=== PATIENT | female | born 1960 | race Caucasian/White ===

== ENCOUNTER → 2019-04-16 15:01 | Outpatient (BNVA) | payer BC, SELFPAY | PROVIDERS: Family Provider Internal Medicine; PCP Internal Medicine; Visit Provider Anesthesiology | DX: G89.18 Other acute postprocedural pain (principal); M79.601 Pain in right arm; M54.9 Dorsalgia, unspecified; N64.4 Mastodynia; F17.210 Nicotine dependence, cigarettes, uncomplicated; Z79.891 Long term (current) use of opiate analgesic | CPT/HCPCS: 99214 ==

== ENCOUNTER → 2019-05-14 14:11 | Outpatient (BNVA) | payer BC, SELFPAY | PROVIDERS: Family Provider Internal Medicine; PCP Internal Medicine; Visit Provider Anesthesiology | DX: G89.18 Other acute postprocedural pain (principal); M79.601 Pain in right arm; C80.1 Malignant (primary) neoplasm, unspecified; G63 Polyneuropathy in diseases classified elsewhere; F17.210 Nicotine dependence, cigarettes, uncomplicated; Z79.891 Long term (current) use of opiate analgesic | CPT/HCPCS: 99213 ==

== ENCOUNTER → 2019-07-08 12:37 | Outpatient (BNVA) | payer BC, SELFPAY | PROVIDERS: Family Provider Internal Medicine; PCP Internal Medicine; Visit Provider Nurse Practitioner | DX: Z76.89 Persons encountering health services in other specified circumstances (principal) | CPT/HCPCS: 99212 ==

== ENCOUNTER → 2019-09-10 14:27 | Outpatient (BNVA) | payer BC, SELFPAY | PROVIDERS: Family Provider Internal Medicine; PCP Internal Medicine; Visit Provider Anesthesiology | DX: G89.18 Other acute postprocedural pain (principal); M79.601 Pain in right arm; R29.898 Other symptoms and signs involving the musculoskeletal system; C80.1 Malignant (primary) neoplasm, unspecified; G63 Polyneuropathy in diseases classified elsewhere; Z92.21 Personal history of antineoplastic chemotherapy; F17.210 Nicotine dependence, cigarettes, uncomplicated; Z79.891 Long term (current) use of opiate analgesic; Z71.6 Tobacco abuse counseling | CPT/HCPCS: 99214 ==

== ENCOUNTER → 2019-11-23 13:57 | Outpatient (BNVA) | payer BC, SELFPAY | PROVIDERS: Family Provider Internal Medicine; PCP Internal Medicine; Visit Provider Anesthesiology | DX: G89.18 Other acute postprocedural pain (principal); M79.601 Pain in right arm; C80.1 Malignant (primary) neoplasm, unspecified; G63 Polyneuropathy in diseases classified elsewhere; R29.898 Other symptoms and signs involving the musculoskeletal system; F17.210 Nicotine dependence, cigarettes, uncomplicated; Z92.21 Personal history of antineoplastic chemotherapy; Z79.891 Long term (current) use of opiate analgesic; Z71.6 Tobacco abuse counseling | CPT/HCPCS: 99214 ==

== ENCOUNTER 2019-12-03 15:11 | Outpatient (CLI) | payer BC, SELFPAY ==
--- NOTE | 2019-12-03 15:16 | MM_ITS ---
WS: [id number] LEFT DIGITAL MAMMOGRAPHY WITH CAD CLINICAL INFORMATION: HX OF BREAST CA PALPABLE LUMP LEFT BREAST COMPARISON: 8 20,019 and 3 ,018 TECHNIQUE: 5 views of the left breast were obtained. FINDINGS: Right mastectomy. Prior left areola relocation surgery The left breast is composed of extremely dense tissue, which can limit the detection of small underly ing mass lesions. Postoperative changes left areola. Palpable marker inferior outer quadrant left breast. A few punctat e calcifications. Vascular calcification. No underlying mammographic abnormalities. Ultrasound recomm ended for palpable abnormality. MM/[place] [id number] IMPRESSION: BI-RADS: 0-Incomplete: Need additional imaging evaluation FOLLOW UP: Need Additional Imaging
== END 2019-12-03 15:12 | disposition home or self-care (01) ==
LOC: ONCMED 15:15
PROVIDERS: PCP Internal Medicine; Visit Provider Internal Medicine Medical Oncology
DX: Z85.3 Personal history of malignant neoplasm of breast (principal); Z90.11 Acquired absence of right breast and nipple; Z98.890 Other specified postprocedural states
CPT/HCPCS: 77065

== ENCOUNTER 2019-12-10 14:52 | Outpatient (CLI) | payer BC, SELFPAY ==
--- NOTE | 2019-12-10 15:00 | US_ITS ---
WS: [id number] ULTRASOUND BREAST LEFT TECHNIQUE: Ultrasound left breast focused area of concern. CLINICAL INFORMATION: PALPALE AREA FOLLOW UP ABNORMAL IMAGING COMPARISON: November 25, 2019 FINDINGS: History of right mastectomy prior left areola relocation. Postoperative changes left areola. Ultrasou nd performed for palpable abnormality. Ultrasound left breast at the 3:00 and 7:00 position and at the nipple. Dense underlying parenchymal tissue. No cystic or solid lesions. No lesions to target for biopsy. US/US breast LT limited* [id number] IMPRESSION: BI-RADS 2 benign Recommend return to annual diagnostic mammography.
== END 2019-12-10 14:53 | disposition home or self-care (01) ==
LOC: ONCMED 14:55
PROVIDERS: PCP Internal Medicine; Visit Provider Internal Medicine Medical Oncology
DX: Z85.3 Personal history of malignant neoplasm of breast (principal)
CPT/HCPCS: 76642

== ENCOUNTER 2019-12-21 06:06 | Outpatient (CLI) | payer BC, SELFPAY ==
--- NOTE | 2019-12-25 09:51 | ONC FU_ITS ---
Dr. Boykin Patient Follow-Up Note Patient: Zhane Denise Unit #: [id number]: 1960 Dicatated By: Gianluca Boykin M.D.Date of Visit:Dec 21, 2019 Onc Med Follow-up/Prog Note Chief Complaint: Breast cancer. History of Present Illness: This is a 57 year-old woman with invasive ductal carcinoma of the right breast, stage IA (T1b, N0, M0), ER/NJ negative and HER-2/luz maria positive. She had presented in 1995 with a lump in her right breast. Excisional biopsy showed grade 2 invasive ductal carcinoma with associated comedo type ductal carcinoma in situ. It measured 1.0 cm in maximum diameter. It was ER/NJ negative and HER-2/luz maria positive. She underwent right modified radical mastectomy on 05/30/95. There was no residual carcinoma identified in the mastectomy specimen and there was no involvement in 22 lymph nodes.. She was given adjuvant chemotherapy with 4 cycles of Adriamycin/cyclophosphamide, which she completed in September of 1995. She then underwent delayed breast reconstruction. 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 Her medical history is otherwise significant for intermittent tachycardia and for recurrent episodes of abdominal pain and vomiting following a laparoscopic cholecystectomy in July 2009. Those episodes were clinically suspicious for partial bowel obstruction, but an actual obstruction was never been documented. She also has had some chronic lower extremity edema and she has chronic anxiety. She is seen for a followup visit. She has been concerned about a lump in her left breast which she first noted about 4 weeks ago. She had evaluation with diagnostic mammogram and ultrasound on 12/03/2019. The mammogram reported a few punctate calcifications with no underlying mammographic abnormalities. The ultrasound showed dense underlying parenchymal tissue with no cystic or solid lesions and no lesions to target for biopsy. She was recommended to return to annual diagnostic mammography. Despite those findings, she is very concerned about the lump, because her original breast cancer apparently did not show up on mammogram. She has otherwise been feeling okay, other than she is stressed out. She had experienced a decrease in her appetite last fall and her weight dropped 20 to 25 pounds, but she does seem to be getting that back now. Medications: ALPRAZolam 1 (0.25 mg) Tablet Oral at bedtime PRN, AmLODIPine Besylate 1 (5 mg) Tablet Oral daily, Metoprolol Tartrate 1 (50 mg) Tablet Oral daily, Morphine Sulfate 1 (30 mg) Tablet Oral b.i.d. PRN, OxyCODONE HCl ER 1 Tablet (of 60 mg) Oral q 8 hours PRN, traZODone HCl 1 Tablet (of 50 mg) Oral at bedtime Allergies: PCN, KEFLEX, VANCOMYCIN Review of Systems: Constitutional - She says her energy is not great. She is able to do light work. She had a decline in her appetite last fall and her weight dropped 20 to 25 pounds. She is now gaining it back, though. She has not had fever. She does have hot flashes and night sweating. ECOG score is 1, ENMT - No sinus congestion/drainage. No mouth sores. No sore throat or difficulty swallowing, Hematologic/Lymphatic - No abnormal bruising or bleeding, Breasts - She became aware of a lump in her left breast about 4 weeks ago, Respiratory - No shortness of breath. No cough. No pleuritic pain or hemoptysis, Cardiovascular - No angina pain. No palpitations, Gastrointestinal - Lately she has had some nausea, but that she attributes to nerves. No heartburn or acid reflux. She occasionally has constipation. No blood in the stool or black stools, Genitourinary (F) - No dysuria or hematuria. No urinary frequency. No urgency or incontinence. She says she has had a lot of yeast infections, Musculoskeletal - She has pain in the right axillary area, which is chronic. She occasionally has pain in the upper back between the shoulder blades, Integumentary - No skin rash, Neurologic - No headache or dizziness. She has some numbness in her right hand. No other focal neurologic symptoms, Psychiatric - She has been under a lot of stress. She has been taking trazodone and alprazolam for insomnia. Vital Signs: Performed on Dec 21, 2019 08:21 Height - 65.00 in Weight - 151.6 lbs (LOW) BSA - 1.76 sq.m BMI - 25.23 Temperature - 98.9 F (HIGH) Pulse - 103 /min (HIGH) Respiration - 18 /min BP - 149/80 mm(hg) (HIGH) O2 Sat - 98 % Pain - 6 Physical Examination: Constitutional - She looks pretty good generally, Eyes - Sclerae nonicteric. Conjunctivae clear, ENMT - No lesions noted in the oral cavity, Hematologic/Lymphatic - No cervical or clavicular adenopathy, Respiratory - Lungs are clear with good air movement bilaterally, Cardiovascular - Heart rhythm is regular. There is no murmur, gallop, or rub noted, Breasts - There are no lesions noted in the right chest wall/reconstruction. The left breast has a generally nodular consistency. Laterally there is a palpable, soft nodule which just feels like normal breast tissue. I do not feel any discrete mass. There is no axillary adenopathy noted, Abdomen - Soft. Liver and spleen are not enlarged. There is no abdominal mass or ascites noted and there is no inguinal adenopathy, Extremities - No edema. Pedal pulses are palpable bilaterally, Integumentary - No rashes. No suspicious skin lesions noted, Neurologic - No focal neurologic deficits noted. Impression: 1. Patient with invasive ductal carcinoma the right breast, stage IA, ER/NJ negative and HER-2/luz maria positive. 2. Her treatment included right modified radical mastectomy and adjuvant chemotherapy with 4 cycles of Adriamycin/cyclophosphamide. 3. She has chronic pain, presumed to be due to brachial plexopathy following delayed breast reconstruction. It has been severe enough to affect her ability to function. Efforts to change or reduce her opiate medication have been unsuccessful. Her other medical illnesses include: 4. She has had Intermittent episodes of tachycardia. 5. She has had intermittent episodes of vomiting following laparoscopic cholecystectomy in July 2009. 6. She has anxiety/depression. It has been managed very well with alprazolam. She presents now with a lump in her left breast. There is no associated abnormality noted on diagnostic mammogram or ultrasound. To me this feels like an area of normal breast tissue, but she is still very concerned about it, as her original breast cancer apparently did not show up on imaging. She is otherwise been stable clinically with no evidence of recurrence of the breast cancer. Plan: She remains on observation/expectant management for the breast cancer, but I will schedule a follow-up visit with repeat ultrasound in 3 months, as she is extremely anxious about it. Signed By: Gianluca Boykin M.D. <<Signature on File>>
== END 2019-12-21 06:07 | disposition home or self-care (01) ==
LOC: ONCMED 06:07
PROVIDERS: PCP Internal Medicine; Visit Provider Internal Medicine Medical Oncology
DX: Z08 Encounter for follow-up examination after completed treatment for malignant neoplasm (principal); Z85.3 Personal history of malignant neoplasm of breast; N63.20 Unspecified lump in the left breast, unspecified quadrant; Z90.11 Acquired absence of right breast and nipple
CPT/HCPCS: G0463

== ENCOUNTER → 2020-01-16 18:50 | Outpatient (BNVA) | payer BC, SELFPAY | PROVIDERS: PCP Internal Medicine; Visit Provider Emergency Medicine | DX: Z11.59 Encounter for screening for other viral diseases (principal) | CPT/HCPCS: 87635 ==

== ENCOUNTER → 2020-01-25 12:46 | Outpatient (BNVA) | payer BC, SELFPAY | PROVIDERS: Family Provider Internal Medicine; PCP Internal Medicine; Visit Provider Anesthesiology | DX: G89.18 Other acute postprocedural pain (principal); M79.601 Pain in right arm; R29.898 Other symptoms and signs involving the musculoskeletal system; C80.1 Malignant (primary) neoplasm, unspecified; Z92.21 Personal history of antineoplastic chemotherapy; G63 Polyneuropathy in diseases classified elsewhere; F17.210 Nicotine dependence, cigarettes, uncomplicated; Z79.891 Long term (current) use of opiate analgesic; Z71.6 Tobacco abuse counseling | CPT/HCPCS: 99214 ==

== ENCOUNTER 2020-02-22 13:10 | Outpatient (CLI) | payer BC, SELFPAY ==
--- NOTE | 2020-02-22 13:14 | US_ITS ---
WS: [id number] ULTRASOUND LEFT BREAST HISTORY: LT PALPABLE MASS LATERAL LEFT BREAST;HX BREAST CA COMPARISON: 12/10/2019, 09/06/2011 and 12/03/2019 TECHNIQUE: 2-D and Doppler. Ultrasound is directed to the LEFT breast at 12:00, 4:00, 3:00, 6:00 and 8:00. There are no suspiciou s masses or shadowing or increased vascularity. There is a scar at 6:00 at the areola . US/US breast LT limited* [id number] IMPRESSION: BI-RADS: 2-Benign FOLLOW-UP: See Report Recommend patient return to annual screening mammography which would be November 2020. If palpable areas change or become more prominent additional imaging can be obtained at that time. At this time the postoperative scars and soft tissue appears stable.
== END 2020-02-22 13:11 | disposition home or self-care (01) ==
LOC: ONCMED 13:12
PROVIDERS: PCP Internal Medicine; Visit Provider Internal Medicine Medical Oncology
DX: N63.20 Unspecified lump in the left breast, unspecified quadrant (principal); Z85.3 Personal history of malignant neoplasm of breast
CPT/HCPCS: 76642

== ENCOUNTER 2020-03-17 13:24 | Outpatient (CLI) | payer BC, SELFPAY ==
--- NOTE | 2020-03-17 13:31 | US_ITS ---
WS: [id number] ULTRASOUND LEFT BREAST HISTORY: PALPABLE MASS LEFT BREAST, history of prior RIGHT breast mastectomy. COMPARISON: 02/22/2020, 12/10/2019. TECHNIQUE: 2-D and Doppler. Patient indicates the palpable abnormality posterior at the 4:00 location. There is normal soft tissu e ultrasound appearance. No solid or cystic masses. No distortion. [place] complete [id number] IMPRESSION: BI-RADS: 2-Benign FOLLOW-UP: 1 Year Follow-up LACK OF RADIOGRAPHIC EVIDENCE OF MALIGNANCY SHOULD NOT DELAY BIOPSY IF A CLINIC ALLY SUSPICIOUS MASS IS PRESENT.
== END 2020-03-17 13:25 | disposition home or self-care (01) ==
LOC: RAD 13:30
PROVIDERS: PCP Internal Medicine; Visit Provider Internal Medicine Medical Oncology
DX: N63.20 Unspecified lump in the left breast, unspecified quadrant (principal); Z85.3 Personal history of malignant neoplasm of breast
CPT/HCPCS: 76641

== ENCOUNTER 2020-03-20 13:02 | Outpatient (CLI) | payer BC, SELFPAY ==
--- NOTE | 2020-03-20 13:39 | ONC FU_ITS ---
Dr. Boykin Patient Follow-Up Note Patient: Zhane Denise Unit #: [id number]: 1960 Dicatated By: Gianluca Boykin M.D.Date of Visit:Mar 20, 2020 Onc Med Follow-up/Prog Note Chief Complaint: Breast cancer. History of Present Illness: This is a 57 year-old woman with invasive ductal carcinoma of the right breast, stage IA (T1b, N0, M0), ER/OK negative and HER-2/luz maria positive. She had presented in 1995 with a lump in her right breast. Excisional biopsy showed grade 2 invasive ductal carcinoma with associated comedo type ductal carcinoma in situ. It measured 1.0 cm in maximum diameter. It was ER/OK negative and HER-2/luz maria positive. She underwent right modified radical mastectomy on 05/30/95. There was no residual carcinoma identified in the mastectomy specimen and there was no involvement in 22 lymph nodes.. She was given adjuvant chemotherapy with 4 cycles of Adriamycin/cyclophosphamide, which she completed in September of 1995. She then underwent delayed breast reconstruction. 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 Her medical history is otherwise significant for intermittent tachycardia and for recurrent episodes of abdominal pain and vomiting following a laparoscopic cholecystectomy in July 2009. Those episodes were clinically suspicious for partial bowel obstruction, but an actual obstruction was never been documented. She also has had some chronic lower extremity edema and she has chronic anxiety. I had seen her for a follow-up visit in December 2019. At that time she was concerned about a lump in her left breast. On exam I was able to delineate a nodule , but at the time it just felt like normal breast tissue. There was no associated abnormality on mammogram or ultrasound at that time. She comes in now for a follow-up visit. She thinks it has gotten larger. Medications: ALPRAZolam 1 (0.25 mg) Tablet Oral at bedtime PRN, AmLODIPine Besylate 1 (5 mg) Tablet Oral daily, Metoprolol Tartrate 1 (50 mg) Tablet Oral daily, Morphine Sulfate 1 (30 mg) Tablet Oral b.i.d. PRN, OxyCODONE HCl ER 1 Tablet (of 60 mg) Oral q 8 hours PRN, traZODone HCl 1 Tablet (of 50 mg) Oral at bedtime Allergies: PCN, KEFLEX, VANCOMYCIN Vital Signs: Performed on Mar 20, 2020 13:15 Height - 65.00 in Weight - 151.2 lbs (LOW) BSA - 1.76 sq.m BMI - 25.16 Temperature - 98.2 F (LOW) Pulse - 61 /min Respiration - 18 /min BP - 121/70 mm(hg) O2 Sat - 98 % Pain - 0 Physical Examination: Constitutional - She looks good generally, Breasts - In the lateral aspect of the left breast there is a palpable nodule which does feel larger and a little more firm compared to the last visit with her, which was in December. It appears to measure about a centimeter now. There is no axillary adenopathy noted. Impression: 1. Patient with invasive ductal carcinoma the right breast, stage IA, ER/OK negative and HER-2/luz maria positive. 2. Her treatment included right modified radical mastectomy and adjuvant chemotherapy with 4 cycles of Adriamycin/cyclophosphamide. 3. She has chronic pain, presumed to be due to brachial plexopathy following delayed breast reconstruction. It has been severe enough to affect her ability to function. Efforts to change or reduce her opiate medication have been unsuccessful. Her other medical illnesses include: 4. She has had Intermittent episodes of tachycardia. 5. She has had intermittent episodes of vomiting following laparoscopic cholecystectomy in July 2009. 6. She has anxiety/depression. It has been managed very well with alprazolam. She presented in December with a lump in her left breast. There was no associated abnormality noted on diagnostic mammogram or ultrasound. On exam at that time I was able to delineate somewhat of a discrete nodule in the lateral aspect of the left breast, but it felt like normal breast tissue. She is concerned because she feels that that lump has been getting larger. On her current exam, the nodule does appear to have increased in size and also feels a little more firm, but repeat ultrasound still shows no abnormality. Plan: As it does appear it has shown some interval change, I am going to arrange for surgical consultation for consideration of excisional biopsy. Signed By: Gianluca Boykin M.D. <<Signature on File>>
== END 2020-03-20 13:03 | disposition home or self-care (01) ==
LOC: ONCMED 13:03
PROVIDERS: PCP Internal Medicine; Visit Provider Internal Medicine Medical Oncology
DX: N63.20 Unspecified lump in the left breast, unspecified quadrant (principal); Z85.3 Personal history of malignant neoplasm of breast; G89.29 Other chronic pain; R07.89 Other chest pain; F41.8 Other specified anxiety disorders; R00.0 Tachycardia, unspecified; Z90.11 Acquired absence of right breast and nipple; Z92.21 Personal history of antineoplastic chemotherapy; Z79.891 Long term (current) use of opiate analgesic
CPT/HCPCS: G0463

== ENCOUNTER → 2020-03-21 16:24 | Outpatient (BNVA) | payer BC, SELFPAY | PROVIDERS: PCP Internal Medicine; Visit Provider Surgery | DX: N63.0 Unspecified lump in unspecified breast (principal) | CPT/HCPCS: 87635 ==

== ENCOUNTER → 2020-03-23 10:41 | Outpatient (BNVA) | payer BC, SELFPAY | PROVIDERS: PCP Internal Medicine; Visit Provider Nurse Practitioner | DX: G89.18 Other acute postprocedural pain (principal); M79.601 Pain in right arm; R29.898 Other symptoms and signs involving the musculoskeletal system; F17.210 Nicotine dependence, cigarettes, uncomplicated; Z79.891 Long term (current) use of opiate analgesic | CPT/HCPCS: 99215 ==

== ENCOUNTER 2020-03-28 09:58 | Day surgery (SDC) | payer BC, SELFPAY ==
[2020-03-27 17:03] VITALS: BMI 23.6
[2020-03-27 17:31] VITALS: BMI 23.6
[2020-03-28] VITALS (7 sets, daily range): BP systolic 121–139; BP diastolic 64–93; PULSE 73–83; RESP 17–18; TEMP 36.3–36.8; O2SAT 96–99
--- NOTE | 2020-03-28 10:14 | W.PM.OPSUD ---
Surgery/Procedure H&P Update DATE OF PROCEDURE: March 28, 2020 DATE H&P PERFORMED: 03/24/20 H&P UPDATE INFORMATION: I have reviewed H&P completed within last 30 days, I have examined patient prior to procedure and No changes to prior documentation PREOP DIAGNOSIS: left breast mass PLANNED PROCEDURE: Operation Date: 03/28/20 11:25 Proposed Procedures p Left Breast Lumpectomy 87625 N63.20(Left) - Enzo Hurtado MD
[2020-03-28] MEDS: sodium chloride 0.9% 1,000 ML 30 ML IV (10:51)
--- NOTE | 2020-03-28 10:51 | ANES.PREANE2 ---
Pre-Anesthetic Assessment Pre-Anesthetic Assessment: Height/Weight: Height 1.65 m Weight 64.41 kg Temp Pulse Resp BP Pulse Ox 98.2 F 73 18 125/70 97 03/28/20 10:17 03/28/20 10:17 03/28/20 10:17 03/28/20 10:17 03/28/20 10:17 Preop Diagnosis: left breast mass Proposed Procedure: Operation Date: 03/28/20 11:25 Proposed Procedures p Left Breast Lumpectomy 43418 N63.20(Left) - Enzo Hurtado MD Last intake: Intake Last Liquid Date 03/28/20 Last Liquid Time 06:00 Last Solid Date 03/28/20 Last Solid Time 01:00 Social: Social History: Tobacco and No alcohol Exam: Pre-Anes Outpt Exam: alert, oriented x 3, clear to auscultation bilaterally and regular rate & rhythm Airway: Submandibular: WNL Cervical ROM: WNL MP: 1 Additional comments: teeth ok History/ROS: No significant history except as noted Pulmonary: Pulmonary: None reported CV/HEM: CV/HEM: HTN : : None reported Hepatic: Hepatic: None reported GI: GI: GERD Metabolic: Metabolic: None reported Musc/skel: Musc/skel: None reported Neuropsych: Neuropsych: Anxiety and Depression Anesthetic Plan: ASA status: 2 Anesthesia: Anesthesia Evaluation and MAC Risk of > 500 ml blood loss (7ml/kg in children): No PFSH Anesthesia PFSH: Medical History (Updated 03/24/20 @ 14:55 by Enzo Hurtado MD) Breast cancer, right History of cancer chemotherapy HTN (hypertension), benign Post-mastectomy pain Surgical History (Updated 03/24/20 @ 14:55 by Enzo Hurtado MD) H/O breast reconstruction H/O total mastectomy of right breast History of cholecystectomy History of dental surgery dental implants on top. S/P TRAM (transverse rectus abdominis muscle) flap breast reconstruction Family History (Updated 03/24/20 @ 14:30 by RUSS Gruber) Grandfather Stroke Cancer Mother Cancer Denies family history of Anesthesia complication Bleeding disorder Social History Smoking and tobacco status: current every day smoker cigarettes Packs smoked per day: 0.5 Alcohol intake: never Data Anesthesia Cardiac Studies: No Data to Display
[2020-03-28] MEDS: ondansetron 2 mg/ML SDV 2 mL 4 MG IVP (11:02)
[2020-03-28] MEDS: midazolam 1 mg/mL INJ 2 mL 2 MG IVP (11:07)
[2020-03-28] MEDS: clindamycin 300 MG/50 ML PREMIX 100 MG IV (11:24)
[2020-03-28] MEDS: lidocaine 1% INJ 20 mL SUBCUT (12:05)
--- NOTE | 2020-03-30 09:15 | PM.OP ---
Operative Report Date of procedure: March 28, 2020 Pre-op Diagnosis: left breast mass Post-op diagnosis: same Procedure Done: Left breast lumpectomy with shave margins Specimens removed/disposition: Left breast mass 4 o'clock position 3 cm from the areolar margin, short superior, long stitch lateral Inferior margin outer edge inked Surgeon: Enzo Hurtado Anesthesia: General Condition: stable Disposition: PACU Procedure: The patient was taken to the operating room and intubated under general anesthesia and the left breast was prepped and draped in a sterile manner. The palpable lump at 4 o'clock position about 3 cm from the areola had been marked preoperatively. Using a 15 blade a 3 cm incision was made over the palpable mass, medial and lateral skin flaps were raised and the mass was excised with some adjacent breast tissue using electrocautery. Short stitch was placed superiorly and a long stitch was placed laterally. An inferior shave margin was obtained and the outer edge was inked. The wound was irrigated with saline, hemostasis ensured and subcutaneous tissues approximated using interrupted 3-0 Vicryl suture and skin was closed using running subcuticular 4-0 Monocryl suture and surgical glue. 0.5% Marcaine was infiltrated in the lumpectomy cavity. The patient was extubated and transferred recovery room in stable condition.
== END 2020-03-28 13:25 | disposition home or self-care (01) ==
PROVIDERS: PCP Internal Medicine; Visit Provider Surgery
PROC: (CPT 19301; principal; 2020-03-28 11:25)
DX: N63.20 Unspecified lump in the left breast, unspecified quadrant (principal); I10 Essential (primary) hypertension; K21.9 Gastro-esophageal reflux disease without esophagitis; F41.9 Anxiety disorder, unspecified; F32.9 Major depressive disorder, single episode, unspecified; Z85.3 Personal history of malignant neoplasm of breast; Z92.3 Personal history of irradiation; F17.210 Nicotine dependence, cigarettes, uncomplicated
CPT/HCPCS: 19301; 12345; 88305; J2250; J2405; J3010; J3490; J7030

== ENCOUNTER → 2020-04-21 10:27 | Outpatient (BNVA) | payer OTHER, SELFPAY | PROVIDERS: PCP Internal Medicine; Visit Provider Nurse Practitioner | DX: G89.18 Other acute postprocedural pain (principal); C80.1 Malignant (primary) neoplasm, unspecified; G63 Polyneuropathy in diseases classified elsewhere; F17.210 Nicotine dependence, cigarettes, uncomplicated; Z79.891 Long term (current) use of opiate analgesic | CPT/HCPCS: 99215 ==

== ENCOUNTER → 2020-06-16 12:24 | Outpatient (BNVA) | payer OTHER, SELFPAY | PROVIDERS: PCP Internal Medicine; Visit Provider Nurse Practitioner | DX: G89.18 Other acute postprocedural pain (principal); C80.1 Malignant (primary) neoplasm, unspecified; G63 Polyneuropathy in diseases classified elsewhere; F17.210 Nicotine dependence, cigarettes, uncomplicated; Z79.891 Long term (current) use of opiate analgesic; Z71.6 Tobacco abuse counseling | CPT/HCPCS: 99215 ==

== ENCOUNTER → 2020-07-14 13:41 | Outpatient (BNVA) | payer OTHER, SELFPAY | PROVIDERS: PCP Internal Medicine; Visit Provider Nurse Practitioner | DX: G89.18 Other acute postprocedural pain (principal); C80.1 Malignant (primary) neoplasm, unspecified; G63 Polyneuropathy in diseases classified elsewhere; F17.210 Nicotine dependence, cigarettes, uncomplicated; Z79.891 Long term (current) use of opiate analgesic; Z71.6 Tobacco abuse counseling | CPT/HCPCS: 99213; 99214 ==

== ENCOUNTER → 2020-09-12 13:10 | Outpatient (BNVA) | payer OTHER, SELFPAY | PROVIDERS: PCP Internal Medicine; Visit Provider Anesthesiology | DX: G89.18 Other acute postprocedural pain (principal); N64.59 Other signs and symptoms in breast; C80.1 Malignant (primary) neoplasm, unspecified; G63 Polyneuropathy in diseases classified elsewhere; F17.210 Nicotine dependence, cigarettes, uncomplicated; Z79.891 Long term (current) use of opiate analgesic | CPT/HCPCS: 99213 ==

== ENCOUNTER → 2020-11-08 13:16 | Outpatient (BNVA) | payer OTHER, SELFPAY | PROVIDERS: PCP Internal Medicine; Visit Provider Anesthesiology | DX: G89.18 Other acute postprocedural pain (principal); C80.1 Malignant (primary) neoplasm, unspecified; N64.59 Other signs and symptoms in breast; G63 Polyneuropathy in diseases classified elsewhere; F17.210 Nicotine dependence, cigarettes, uncomplicated; Z79.891 Long term (current) use of opiate analgesic | CPT/HCPCS: 99213 ==

== ENCOUNTER → 2021-01-05 13:19 | Outpatient (BNVA) | payer OTHER, SELFPAY | PROVIDERS: PCP Internal Medicine; Visit Provider Nurse Practitioner | DX: G89.18 Other acute postprocedural pain (principal); C80.1 Malignant (primary) neoplasm, unspecified; N64.59 Other signs and symptoms in breast; G63 Polyneuropathy in diseases classified elsewhere; F17.200 Nicotine dependence, unspecified, uncomplicated; Z79.891 Long term (current) use of opiate analgesic; Z71.6 Tobacco abuse counseling | CPT/HCPCS: 99214 ==

== ENCOUNTER → 2021-03-08 12:38 | Outpatient (BNVA) | payer OTHER, SELFPAY | PROVIDERS: PCP Internal Medicine; Visit Provider Anesthesiology | DX: Z02.89 Encounter for other administrative examinations (principal); G89.18 Other acute postprocedural pain; C80.1 Malignant (primary) neoplasm, unspecified; N64.59 Other signs and symptoms in breast; G63 Polyneuropathy in diseases classified elsewhere; F17.210 Nicotine dependence, cigarettes, uncomplicated; Z79.899 Other long term (current) drug therapy; Z79.891 Long term (current) use of opiate analgesic; Z71.6 Tobacco abuse counseling | CPT/HCPCS: 99214 ==

== ENCOUNTER 2021-04-12 07:57 | Outpatient (CLI) | payer OTHER, SELFPAY ==
--- NOTE | 2021-04-12 11:54 | ONC FU_ITS ---
Dr. Boykin Patient Follow-Up Note Patient: Zhane Denise Unit #: [id number]: 1960 Dicatated By: Gianluca Boykin M.D.Date of Visit:Apr 12, 2021 Onc Med Follow-up/Prog Note Chief Complaint: Breast cancer. History of Present Illness: This is a 60 year-old woman with invasive ductal carcinoma of the right breast, stage IA (T1b, N0, M0), ER/MD negative and HER-2/luz maria positive. She had presented in 1995 with a lump in her right breast. Excisional biopsy showed grade 2 invasive ductal carcinoma with associated comedo type ductal carcinoma in situ. It measured 1.0 cm in maximum diameter. It was ER/MD negative and HER-2/luz maria positive. She underwent right modified radical mastectomy on 05/30/95. There was no residual carcinoma identified in the mastectomy specimen and there was no involvement in 22 lymph nodes. She underwent a delayed breast reconstruction. She was then given adjuvant chemotherapy with 4 cycles of Adriamycin/cyclophosphamide, which she completed in September of 1995. 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 She has had a chronic opiate requirement with it. However, during followup there has been no evidence of recurrence of her breast cancer. Her medical history is otherwise significant for hypertension and for intermittent tachycardia. She had recurrent episodes of abdominal pain and vomiting following a laparoscopic cholecystectomy in July 2009. Those episodes were clinically suspicious for partial bowel obstruction, but an actual obstruction was never documented. She also has had chronic anxiety and some depression. She has had no other surgeries. She has smoked on an occasional basis. She does not drink alcohol. Her family history is significant for multiple family members with colon cancer on her maternal side of the family, including her mother. There is no history of breast or ovarian cancer in the family. INTERIM HISTORY: I had seen her in March 2020 in regard to a small nodule in the lateral aspect of the left breast. It did not appear suspicious by ultrasound, but as it had increased in size she opted to proceed with excisional biopsy. Pathology showed benign breast tissue with an area of fibrosis. There was no malignancy identified. She is seen for a follow-up visit. Her main concern is that she has been on long-term opiate therapy and she would now like to try and get off of her opiate medications. She is currently taking extended release oxycodone 60 mg every 8 hours and immediate release morphine 30 mg 3 times a day as needed. Her pain is mainly in the right axillary area, but it also radiates into the right breast reconstruction. She complains that she does not have much energy. She is taking care of her father, and she does what she has to, but her activity is limited. Her ECOG score is 1. Her appetite is not good. Her weight is down 11 pounds compared to her last visit here, which was just a little over a year ago. She has not had fever. She still has hot flashes/sweating at night. She has not had sore mouth or throat. She does not complain of cough and she has not been having shortness of breath or chest pain. She has had occasional episodes of heart racing, but that problem has been controlled pretty well with metoprolol. She still has a lot of nausea, but she is not recently had any vomiting. She has not had acid reflux symptoms and she has no complaints with bowel or bladder function. She has been having pain in the pelvic area on the left side for the past 6 to 7 months. She says it comes and goes. She has seen Dr. Maher for it. There were no abnormal findings on her pelvic or abdominal ultrasound studies. She is to have further evaluation with CT scan. She says her last colonoscopy was 5 years ago. She sometimes has headache and she sometimes has dizziness. She also has some numbness in her right hand. She has had ongoing problems with anxiety and depression. She has been reluctant to take an antidepressant. Medications: ALPRAZolam 1 (0.25 mg) Tablet Oral at bedtime PRN, AmLODIPine Besylate 1 (5 mg) Tablet Oral daily, Metoprolol Tartrate 1 (50 mg) Tablet Oral daily, Morphine Sulfate 1 (30 mg) Tablet Oral t.i.d. PRN, OxyCODONE HCl ER 1 Tablet (of 60 mg) Oral q 8 hours PRN, traZODone HCl 1 Tablet (of 50 mg) Oral at bedtime Allergies: PCN, KEFLEX, VANCOMYCIN Vital Signs: Performed on Apr 12, 2021 08:32 Height - 65.00 in Weight - 140.4 lbs (LOW) BSA - 1.70 sq.m BMI - 23.36 Temperature - 98.4 F Pulse - 74 /min Respiration - 18 /min BP - 116/73 mm(hg) O2 Sat - 96 % Pain - 5 Fatigue - 5 Physical Examination: Constitutional - She looks pretty good generally, Eyes - Sclerae nonicteric. Conjunctivae clear, ENMT - No lesions noted in the oral cavity, Neck - No mass or thyromegaly, Hematologic/Lymphatic - No cervical or clavicular adenopathy, Respiratory - Lungs are clear with good air movement bilaterally, Cardiovascular - Heart rhythm is regular. There is no murmur, gallop, or rub noted, Breasts - There is no mass noted in the right chest wall/reconstruction. The left breast shows no mass. There is no axillary adenopathy noted, Abdomen - Soft. Her pain localizes to the left lower quadrant. There is no palpable abnormality in that area. Liver and spleen are not enlarged. There is no abdominal mass or ascites noted and there is no inguinal adenopathy, Extremities - No edema, Neurologic - No focal neurologic deficits noted. Problem List: 1. Grade 2 invasive ductal carcinoma of the right breast, stage IA (T1b, N0, M0), ER/MD negative and HER-2/luz maria positive. 2. She has chronic pain, presumed to be due to brachial plexopathy following delayed breast reconstruction. 3. Hypertension. 4. Intermittent tachycardia. 5. Recurrent vomiting following laparoscopic cholecystectomy in July 2009. 6. Anxiety/depression. Problems Addressed with this Encounter and Plan: 1. Patient with grade 2 invasive ductal carcinoma of the right breast, stage IA (T1b, N0, M0), ER/MD negative and HER-2/luz maria positive. She underwent right modified radical mastectomy in May 1995. The primary tumor measured 1.0 cm in maximum diameter. There was no involvement in 22 lymph nodes. She had a delayed reconstruction. She was then given adjuvant chemotherapy with 4 cycles of Adriamycin/cyclophosphamide, completed in September 1995. She has been on expectant management following completion of the chemotherapy. Thus far there has been no evidence of recurrence of the breast cancer. She continues yearly diagnostic mammogram for surveillance of the left breast. 2. She had had chronic pain following delayed breast reconstruction. This is presumed to be due to brachial plexopathy. It has been severe enough to affect her ability to function. She has been on long-term opiate therapy. She now desires to get off of her opiate pain medication. I think the best approach is to do this gradually. As such, I will now reduce her extended release oxycodone to 60 mg every 12 hours. She will continue the MSIR at the same dosage. I will see her again in 2 months, or sooner as needed. 3. She has been having pain intermittently in the left lower quadrant area. A specific cause has not been determined. She is being scheduled for CT abdomen/pelvis. She will have further evaluation as indicated. 4. She has anxiety and depression. She has been reluctant to take an antidepressant, but she is now agreeable to try venlafaxine ER 75 mg daily. She will continue alprazolam at the same dosage. Signed By: Gianluca Boykin M.D. <<Signature on File>>
== END 2021-04-12 07:58 | disposition home or self-care (01) ==
LOC: ONCMED 07:59
PROVIDERS: PCP Internal Medicine; Visit Provider Internal Medicine Medical Oncology
DX: Z85.3 Personal history of malignant neoplasm of breast (principal); F41.9 Anxiety disorder, unspecified; F32.A Depression, unspecified; G54.0 Brachial plexus disorders; I10 Essential (primary) hypertension; R00.0 Tachycardia, unspecified; Z79.891 Long term (current) use of opiate analgesic; Z79.899 Other long term (current) drug therapy
CPT/HCPCS: 99214

== ENCOUNTER 2021-06-13 16:26 | Outpatient (CLI) | payer OTHER, SELFPAY ==
--- NOTE | 2021-06-16 12:38 | ONC FU_ITS ---
Dr. Boykin Patient Follow-Up Note Patient: Zhane Denise Unit #: [id number]: 1960 Dicatated By: Gianluca Boykin M.D.Date of Visit:Jun 13, 2021 Onc Med Follow-up/Prog Note Chief Complaint: Breast cancer. History of Present Illness: This is a 60 year-old woman with invasive ductal carcinoma of the right breast, stage IA (T1b, N0, M0), ER/PA negative and HER-2/luz maria positive. She had presented in 1995 with a lump in her right breast. Excisional biopsy showed grade 2 invasive ductal carcinoma with associated comedo type ductal carcinoma in situ. It measured 1.0 cm in maximum diameter. It was ER/PA negative and HER-2/luz maria positive. She underwent right modified radical mastectomy on 05/30/95. There was no residual carcinoma identified in the mastectomy specimen and there was no involvement in 22 lymph nodes. She underwent a delayed breast reconstruction. She was then given adjuvant chemotherapy with 4 cycles of Adriamycin/cyclophosphamide, which she completed in September of 1995. 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 She has had a chronic opiate requirement with it. However, during followup there has been no evidence of recurrence of her breast cancer. Her medical history is otherwise significant for hypertension and for intermittent tachycardia. She had recurrent episodes of abdominal pain and vomiting following a laparoscopic cholecystectomy in July 2009. Those episodes were clinically suspicious for partial bowel obstruction, but an actual obstruction was never documented. She also has had chronic anxiety and some depression. She has had no other surgeries. She has smoked on an occasional basis. She does not drink alcohol. Her family history is significant for multiple family members with colon cancer on her maternal side of the family, including her mother. There is no history of breast or ovarian cancer in the family. INTERIM HISTORY: I had seen her in March 2020 in regard to a small nodule in the lateral aspect of the left breast. It did not appear suspicious by ultrasound, but as it had increased in size she opted to proceed with excisional biopsy. Pathology showed benign breast tissue with an area of fibrosis. There was no malignancy identified. She was then seen for a follow-up visit on 04/12/2021. At that point she expressed interest in trying to get off of or least reduce her opiate pain medication. As such, her OxyContin dosage was reduced to 60 mg every 12 hours and she continued the MSIR 3 times a day. She is seen for a follow-up visit. She said she had some tough days when she first reduced her OxyContin, but since then she has been adjusting to the lower dose. Overall, though, she has been less active. She is able to do very little housework now. ECOG score is 2. Her appetite is terrible. She has not had fever. She does have some sweating at night. She has not had shortness of breath, cough, or chest pain. She does complain that her stomach aches and that she is nauseated all the time. She continues to have pain in the mid abdominal area. For the past year she has been having pain on a daily basis in the left inguinal area, and a cause for that has still not been determined. She has no problems with her bowel function. She recently has had treatment for urinary tract infection and a yeast infection. She has not been having any focal neurologic symptoms. Medications: ALPRAZolam 1 (0.25 mg) Tablet Oral at bedtime PRN, AmLODIPine Besylate 1 (5 mg) Tablet Oral daily, Metoprolol Tartrate 1 (50 mg) Tablet Oral daily, Morphine Sulfate 1 (30 mg) Tablet Oral t.i.d. PRN, OxyCODONE HCl ER 1 Tablet (of 60 mg) Oral q 8 hours PRN, traZODone HCl 1 Tablet (of 50 mg) Oral at bedtime Allergies: PCN, KEFLEX, VANCOMYCIN Vital Signs: Performed on Jun 13, 2021 16:34 Height - 65.00 in Weight - 142.4 lbs (HIGH) BSA - 1.71 sq.m BMI - 23.70 Temperature - 99.3 F (HIGH) Pulse - 73 /min Respiration - 16 /min BP - 118/74 mm(hg) O2 Sat - 92 % (LOW) Pain - 5 Fatigue - 8 Physical Examination: Constitutional - She looks pretty good generally, Eyes - Sclerae nonicteric. Conjunctivae clear, ENMT - No lesions noted in the oral cavity, Hematologic/Lymphatic - No cervical or clavicular adenopathy, Respiratory - Lungs are clear with good air movement bilaterally, Cardiovascular - Heart rhythm is regular. There is no murmur, gallop, or rub noted, Abdomen - Soft. Liver and spleen are not enlarged. There is no abdominal mass or ascites noted and there is no inguinal adenopathy, Extremities - No edema, Neurologic - No focal neurologic deficits noted. Problem List: 1. Grade 2 invasive ductal carcinoma of the right breast, stage IA (T1b, N0, M0), ER/PA negative and HER-2/luz maria positive. 2. She has chronic pain, presumed to be due to brachial plexopathy following delayed breast reconstruction. 3. Hypertension. 4. Intermittent tachycardia. 5. Recurrent vomiting following laparoscopic cholecystectomy in July 2009. 6. Anxiety/depression. Problems Addressed with this Encounter and Plan: 1. Patient with grade 2 invasive ductal carcinoma of the right breast, stage IA (T1b, N0, M0), ER/PA negative and HER-2/luz maria positive. She underwent right modified radical mastectomy in May 1995. The primary tumor measured 1.0 cm in maximum diameter. There was no involvement in 22 lymph nodes. She had a delayed reconstruction. She was then given adjuvant chemotherapy with 4 cycles of Adriamycin/cyclophosphamide, completed in September 1995. She has been on expectant management following completion of the chemotherapy. Thus far there has been no evidence of recurrence of the breast cancer. She continues yearly diagnostic mammogram for surveillance of the left breast. 2. She had had chronic pain following delayed breast reconstruction. This is presumed to be due to brachial plexopathy. It has been severe enough to affect her ability to function. She has been on long-term opiate therapy. She is wanting to try and get off of her opiate pain medication. For the next month she will continue her extended release oxycodone at 60 mg every 12 hours, but she will then reduce to 30 mg every 12 hours. She will continue the MSIR at the same dosage. I will see her again in 2 months. 3. She has been having pain in the left lower quadrant/left inguinal area. A specific cause has not been determined. She will be scheduled for CT abdomen/pelvis. She will have further evaluation as indicated. In the meantime, she also will be seeing Dr. Mercer for colonoscopy. Since she has significant upper GI symptoms as well, I will ask him to include an EGD. Signed By: Gianluca Boykin M.D. <<Signature on File>>
== END 2021-06-13 16:27 | disposition home or self-care (01) ==
PROVIDERS: PCP Internal Medicine; Visit Provider Internal Medicine Medical Oncology
DX: Z85.3 Personal history of malignant neoplasm of breast (principal); I10 Essential (primary) hypertension; F41.9 Anxiety disorder, unspecified; F32.A Depression, unspecified; R00.0 Tachycardia, unspecified; G89.29 Other chronic pain; Z79.899 Other long term (current) drug therapy; Z92.21 Personal history of antineoplastic chemotherapy
CPT/HCPCS: G0463

== ENCOUNTER 2021-06-29 11:03 | Outpatient (CLI) | payer OTHER, SELFPAY ==
--- NOTE | 2021-06-29 11:21 | CT_ITS ---
WS: [id number] CT scan of the pelvis without Oral and IV contrast. Additional two-dimensional coronal and sagittal r econstruction was performed. 06/29/2021 Clinical Data: PELVIC PAIN Comparison: CT abdomen and pelvis, 09/29/2009. DLP: 525.[address] scans at [facility] use at least one of these dose optimization techniques: automated e xposure control; mA and/or kV adjustment per patient size (includes targeted exams where dose is matc hed to clinical indication); or iterative reconstruction. Findings: The common iliac arteries show no aneurysm but there is calcification in the wall. The patient has echeverria d surgery removing the right rectus abdominis muscle. No appendicitis or diverticulitis is seen. No abscess, adenopathy, ascites, mass, obstruction or free air is seen. The bladder has minimal wall thickening and an anterior strand which may attach to the abdominal wall . The uterus is absent. No inguinal hernia is seen. The pelvis and hips are normal. CT/CT pelvis con [id number] Impression: Negative for acute pelvic abnormalities.
== END 2021-06-29 11:04 | disposition home or self-care (01) ==
PROVIDERS: PCP Internal Medicine; Visit Provider Family Medicine
DX: R10.2 Pelvic and perineal pain (principal)
CPT/HCPCS: 72192

== ENCOUNTER 2021-09-24 11:57 | Emergency (ER) | payer OTHER, SELFPAY ==
[2021-09-24 12:14] VITALS: BP 164/111; PULSE 89; RESP 16; TEMP 36.5; O2SAT 98
[2021-09-24] MEDS: ondansetron 2 mg/ML SDV 2 mL 4 MG IVP (12:57)
[2021-09-24] MEDS: sodium chloride 0.9% 1,000 ML 999 ML IV (12:58)
[2021-09-24 13:01] LABS: Basophils # 0.1 10^3/uL (0.0-0.1); Basophils % 1.3 %; Eosinophils # 0.3 10^3/uL (0.0-0.8); Eosinophils % 3.3 %; Hematocrit 46.9 % (37.0-47.0); Hemoglobin 16.2 g/dL (11.5-15.3); Lymphocytes # 1.5 10^3/uL (0.8-4.8); Mean Corpuscular HGB Conc 34.5 g/dL (30.0-36.0); Mean Corpuscular Hemoglobin 31.4 pg (28.0-34.0); Mean Corpuscular Volume 90.9 fl (81-99); Mean Platelet Volume 9.6 fL (7.4-10.4); Monocytes # 0.5 10^3/uL (0.2-0.9); Monocytes % 6.2 %; Neutrophils # 5.94 10^3/uL (1.8-7.7); Nucleated Red Blood Cells % 0.4 %; Platelet Count 341 10^3/cmm (130-400); Red Blood Count 5.16 10^6/uL (4.1-5.3); Red Cell Distribution Width 13.3 % (12.1-15.1); White Blood Count 8.4 10^3/uL (4.0-10.0)
--- NOTE | 2021-09-24 13:18 | ED_ITS ---
HPI - Nausea/Vomiting/Diarrhea General: Chief complaint: Nausea/Vomiting/Diarrhea Stated complaint: Weakness, Cant take her antibiotics Time Seen by Provider: 09/24/21 12:28 Source: patient Mode of arrival: ambulatory Limitations: no limitations History of Present Illness: 61-year-old female presents emergency room with complaint of nausea vomiting abdominal pain. Patient was started on a course of antibiotics for H. pylori. She took a few doses and got significant GI upset and ended up stopping them this was several weeks ago that she intermittently has felt well since last day or 2 days gotten much worse. She denies any medic easy melena hematemesis or coffee-ground emesis no dysuria urgency or frequency she was on H. pylori regimen including metronidazole. She has previously had her gallbladder out, no other abdominal surgeries. MD elicited complaint: nausea, vomiting and diarrhea Onset (ago): week(s) Description of vomiting: watery and bilious Description of diarrhea: watery and lose Associated nausea: Yes Associated abdominal pain: Yes Location of pain: RUQ Quality: cramping Exacerbating factors: eating Relieving factors: none Associated symtoms: Reports nausea; Denies altered mental status, anxiety, bloating, change in vision, chest pain, cough, diaphoresis, decreased urine output, dizziness, dysuria, epistaxis, fatigue, fecal incontinence, fevers/chills, headache(s), anorexia, malaise, myalgias, numbness, palpitations, rash, short of breath, syncope, tenesmus, tinnitus or weakness Review of Systems Const: Denies: fever(s), chills, fatigue, malaise or diaphoresis Eyes: Denies: change in vision ENMT: Denies: tinnitus or epistaxis Card: Denies: chest pain, palpitations or syncope Resp: Denies: dyspnea, productive cough or non-productive cough GI: Reports: abdominal pain, nausea, vomiting and diarrhea; Denies: bloating or fecal incontinence : Denies: flank pain, difficulty voiding, dysuria, urinary frequency or urinary urgency Skin/Breast: Denies: rash or pruritus Neuro: Denies: headache(s) or dizziness Psych: Denies: anxiety PFSH ED PFSH: Medical History Breast cancer, right History of cancer chemotherapy HTN (hypertension), benign Post-mastectomy pain Surgical History H/O breast reconstruction H/O total mastectomy of right breast History of cholecystectomy History of dental surgery dental implants on top. S/P TRAM (transverse rectus abdominis muscle) flap breast reconstruction Status post left breast lumpectomy (03/28/20) Family History Grandfather Stroke Cancer Mother Cancer Denies family history of Anesthesia complication Bleeding disorder Social History Alcohol intake: never History of recent travel: No Physical Exam Const: COMMON NORMALS: no acute distress EXAM LIMITATIONS: no altered mental status GENERAL APPEARANCE: cooperative and comfortable ORIENTATION/CONSCIOUSNESS: Yes awake, Yes oriented to person, Yes oriented to place and Yes oriented to time HENMT: COMMON NORMALS: normocephalic and atraumatic HEAD & SCALP: normocephalic and atraumatic Neck/C-Spine: COMMON NORMALS: no JVD Resp: COMMON NORMALS: normal respiratory effort, No retractions, No use of accessory muscles and clear to auscultation bilaterally AUSCULTATION: clear to auscultation bilaterally Cardio: COMMON NORMALS: no JVD, regular rate, regular rhythm and No murmurs present (Cardio) RATE: regular rate RHYTHM: regular rhythm GI: COMMON NORMALS: No hepatosplenomegaly present AUSCULTATION: Yes normoactive bowel sounds PALPATION: Yes Tenderness to palpation present (GI) (Epigastric), No Guarding due to palpation present (GI) and Yes No hepatosplenomegaly present : COMMON NORMALS: Yes no CVA tenderness BLADDER/KIDNEY EXAM: Yes no CVA tenderness Back/Pelvis: COMMON NORMALS: no CVA tenderness Extremity: COMMON NORMALS: normal to inspection, capillary refill normal, no clubbing, cyanosis or edema, no calf tenderness and no pedal edema Neuro: SENSORIUM/ORIENTATION: Yes oriented to person, Yes oriented to place and Yes oriented to time Skin: COMMON NORMALS: no rashes or lesions noted GENERAL SKIN EXAM: no rashes or lesions noted Course Vital Signs: Vital signs: Vital Signs Temperature 97.7 F 09/24/21 12:14 Pulse Rate 89 09/24/21 12:14 Respiratory Rate 18 09/24/21 14:23 Blood Pressure 164/111 09/24/21 12:14 Pulse Oximetry 95 09/24/21 14:23 MDM - Nausea/Vomiting/Diarrhea Medical Decision Making Several different potential factors coming into play here. I do not think the antibiotics that she took or what is causing this to the at this point. She has been tapering off narcotic she also uses medical marijuana. And finally the H. pylori may contribute to it although it would seem unlikely given she had a relatively normal EGD. I discussed with Dr. Martínez did her EGD he felt similarly will increase her proton pump inhibitor discouraged use of medical marijuana clear liquid diet follow-up with Dr. Boykin or Dr. Mercer. Medical Records I reviewed the patient's medical records. Lab Data I reviewed the patient's lab results. : 09/24/21 12:55 09/24/21 12:55 Radiology Impressions Abdomen/Pelvis CT 09/24/21 13:41 IMPRESSION: 1. No acute findings in the abdomen or pelvis. 2. No evidence of acute appendicitis. 3. Prior cholecystectomy. 4. Tiny pericardial effusion or pericardial thickening. 5. Normal caliber abdominal aorta. 6. Small amount of free fluid in the pelvis. 7. Prior hysterectomy 8. Prior mastectomy with RIGHT rectus abdominis flap reconstruction. Laboratory Results WBC 8.4 10^3/uL (4.0-10.0) 09/24/21 12:55 RBC 5.16 10^6/uL (4.1-5.3) 09/24/21 12:55 Hgb 16.2 g/dL (11.5-15.3) H 09/24/21 12:55 Hct 46.9 % (37.0-47.0) 09/24/21 12:55 MCV 90.9 fl (81-99) 09/24/21 12:55 MCH 31.4 pg (28.0-34.0) 09/24/21 12:55 MCHC 34.5 g/dL (30.0-36.0) 09/24/21 12:55 RDW 13.3 % (12.1-15.1) 09/24/21 12:55 Plt Count 341 10^3/cmm (130-400) 09/24/21 12:55 MPV 9.6 fL (7.4-10.4) 09/24/21 12:55 Neut % (Auto) 71.0 % 09/24/21 12:55 Lymph % (Auto) 18.0 % 09/24/21 12:55 [place] % (Auto) 6.2 % 09/24/21 12:55 Eos % (Auto) 3.3 % 09/24/21 12:55 Baso % (Auto) 1.3 % 09/24/21 12:55 Neut # (Auto) 5.94 10^3/uL (1.8-7.7) 09/24/21 12:55 Lymph # (Auto) 1.5 10^3/uL (0.8-4.8) 09/24/21 12:55 [place] # (Auto) 0.5 10^3/uL (0.2-0.9) 09/24/21 12:55 Eos # (Auto) 0.3 10^3/uL (0.0-0.8) 09/24/21 12:55 Baso # (Auto) 0.1 10^3/uL (0.0-0.1) 09/24/21 12:55 Nucleated RBC % (auto) 0.4 % 09/24/21 12:55 Nucleated RBCs # 0.0 /100WBC 09/24/21 12:55 Sodium 138 mmol/L (136-145) 09/24/21 12:55 Potassium 3.6 mmol/L (3.5-5.1) 09/24/21 12:55 Chloride 99 mmol/L (98-107) 09/24/21 12:55 Carbon Dioxide 31 mmol/L (22-29) H 09/24/21 12:55 Anion Gap 11.6 (5-19) 09/24/21 12:55 BUN 7 mg/dL (8-23) L 09/24/21 12:55 Creatinine 0.9 mg/dL (0.5-0.9) 09/24/21 12:55 GFR Calculation 63.9 mL/min (90-130) L 09/24/21 12:55 Glucose 99 mg/dL (65-115) 09/24/21 12:55 Calculated Osmolality 284 mOsm/kg (285-295) L 09/24/21 12:55 Calcium 9.7 mg/dL (8.5-10.5) 09/24/21 12:55 Total Bilirubin 0.4 mg/dL (0.15-1.2) 09/24/21 12:55 AST 14 U/L (0-32) 09/24/21 12:55 ALT < 5 U/L (0-33) 09/24/21 12:55 Alkaline Phosphatase 75 IU/L (35-105) 09/24/21 12:55 Total Protein 7.2 g/dL (6.6-8.7) 09/24/21 12:55 Albumin 4.3 g/dL (3.5-5.2) 09/24/21 12:55 Globulin 2.9 g/dL (1.3-4.6) 09/24/21 12:55 Lipase 16 U/L (13-60) 09/24/21 12:55 Urine Color Straw (Yellow) 09/24/21 13:25 Urine Appearance Clear (CLEAR) 09/24/21 13:25 Urine pH 8 (5-7) H 09/24/21 13:25 Ur Specific Raymond 1.005 (1.005-1.030) 09/24/21 13:25 Urine Protein Neg (Negative) 09/24/21 13:25 Urine Glucose (UA) Norm (Normal) 09/24/21 13:25 Urine Ketones Negative (Negative) 09/24/21 13:25 Urine Blood Neg (Negative) 09/24/21 13:25 Urine Nitrate Negative (Negative) 09/24/21 13:25 Urine Bilirubin Neg (Negative) 09/24/21 13:25 Prot Sulfosalicylic Acd Negative (Negative) 09/24/21 13:25 Urine Urobilinogen Norm mg/dL (Negative) 09/24/21 13:25 Ur Leukocyte Esterase Negative (Negative) 09/24/21 13:25 Discharge Plan Discharge Patient Disposition: Home Clinical Impression: Nausea & vomiting Condition: Stable Prescriptions: New promethazine 25 mg tablet 25 mg PO Q6H PRN (Reason: nausea and vomiting) Qty: 20 0RF Changed Protonix 40 mg tablet,delayed release (DR/EC) 40 mg PO BID Qty: 60 0RF No Action amlodipine 5 mg tablet 5 mg PO ONCE 0RF alprazolam [Xanax] 0.25 mg tablet 0.25 mg PO QID PRN (Reason: Anxiety) 0RF morphine 30 mg tablet 30 mg PO QID PRN (Reason: pain) 30 Days Qty: 120 0RF ondansetron 4 mg tablet,disintegrating 4 mg PO Q6H PRN (Reason: nausea and vomiting) Qty: 60 0RF trazodone 50 mg Tablet 50 mg PO BEDTIME PRN (Reason: Sleep) 0RF sucralfate 100 mg/mL suspension 100 mg PO TID 0RF metoprolol tartrate 50 mg Tablet 100 mg PO BID 0RF Discharge Orders: Discharge ED (Routine); Ordered 09/24/21 Ordered By: Collin Maldonado Referrals: Gianluca Elias DO [Primary Care Provider] - Discharge Diet: Full LIquid Discharge Activity: Increase activity as tolerated Patient Instructions: Opioid Safety Activity Restrictions/Additional Instructions: Follow-up with your primary care doctor within the week. Coding Level of Care Code ED Plasterer Spot for Isaias Fwd Exam Comprehensive
[2021-09-24 13:20] LABS: Alanine Aminotransferase < 5 U/L (0-33); Albumin Level 4.3 g/dL (3.5-5.2); Alkaline Phosphatase 75 IU/L (35-105); Anion Gap 11.6 (5-19); Aspartate Amino Transferase 14 U/L (0-32); Blood Urea Nitrogen 7 mg/dL (8-23); Calcium 9.7 mg/dL (8.5-10.5); Carbon Dioxide 31 mmol/L (22-29); Chloride 99 mmol/L (98-107); Globulin 2.9 g/dL (1.3-4.6); Glomerular Filtration Rate 63.9 mL/min (90-130); Glucose 99 mg/dL (65-115); Lipase 16 U/L (13-60); Osmolality Calculated 284 mOsm/kg (285-295); Potassium 3.6 mmol/L (3.5-5.1); Sodium 138 mmol/L (136-145); Total Bilirubin 0.4 mg/dL (0.15-1.2); Total Protein 7.2 g/dL (6.6-8.7)
[2021-09-24 13:31] LABS: Add Urine Microscopic? NO; Charge for UA Resulting for Rev
--- NOTE | 2021-09-24 13:41 | CT_ITS ---
WS: [id number] CT ABDOMEN PELVIS TECHNIQUE: Noncontrast CT of the abdomen and pelvis with coronal and sagittal reformatted images. CLINICAL INFORMATION: Abdominal pain COMPARISON: CT pelvis June 29, 2021 and abdomen pelvis 2009 DLP: 898.[address] scans at [facility] use at least one of these dose optimization techniques: automated e xposure control; mA and/or kV adjustment per patient size (includes targeted exams where dose is matc hed to clinical indication); or iterative reconstruction. FINDINGS: Lung bases are well aerated. Slight subsegmental atelectasis in the lung bases. Cholecystectomy. Normal noncontrast liver. Slight intrahepatic biliary ductal dilatation likely physi ologic postcholecystectomy. This appears unchanged. Normal GE junction. Normal stomach and duodenum. Noncontrast spleen is normal. Slight pericardial thickening or tiny effusion. Noncontrast pancreas ap pears normal. Adrenal glands are normal. Normal caliber abdominal aorta. Aortic calcification. Normal sigmoid colon. No evidence of high-grade small or large bowel obstruction. Normal appendix in the RI GHT lower quadrant. No evidence of acute appendicitis. Small amount of free fluid in the RIGHT pelvis. Prior hysterectomy. Normal noncontrast kidneys. No hy dronephrosis in either kidney. CT/CT abdomen pelvis wo con [id number] IMPRESSION: 1. No acute findings in the abdomen or pelvis. 2. No evidence of acute appendicitis. 3. Prior cholecystectomy. 4. Tiny pericardial effusion or pericardial thickening. 5. Normal caliber abdominal aorta. 6. Small amount of free fluid in the pelvis. 7. Prior hysterectomy 8. Prior mastectomy with RIGHT rectus abdominis flap reconstruction.
[2021-09-24 14:01] LABS: Bilirubin Urine Neg (Negative); Blood Urine Neg (Negative); Glucose Urine UA Norm (Normal); Ketones Urine Negative (Negative); Leukocyte Esterase Urine Negative (Negative); Nitrate Urine Negative (Negative); Protein Urine Neg (Negative); Specific Gravity, Urine 1.005 (1.005-1.030); Sulfosalicylic Acid Urine Negative (Negative); Urine Appearance Clear (CLEAR); Urine Color Straw (Yellow); Urobilinogen Urine Norm (Negative); pH Urine 8 (5-7)
[2021-09-24] MEDS: promethazine 25 mg/mL SDV 1 mL IM (14:08)
[2021-09-24 14:23] VITALS: RESP 18; O2SAT 95
[2021-09-24] MEDS: morphine 4 mg/mL SDV 1 mL IVP (14:23)
[2021-09-24] MEDS: haloperidol inj 5 mg/mL INJ 1 mL 2.5 MG IVP (15:10)
[2021-09-24] MEDS: LORazepam 2 mg/mL INJ 1 mL 1 MG IVP (15:11)
== END 2021-09-24 15:27 | disposition home or self-care (01) ==
PROVIDERS: Emergency Provider Family Medicine; PCP Internal Medicine
DX: R11.2 Nausea with vomiting, unspecified (principal); Z85.3 Personal history of malignant neoplasm of breast; Z92.21 Personal history of antineoplastic chemotherapy; I10 Essential (primary) hypertension
CPT/HCPCS: 74176; 80053; 81003; 83690; 85025; 96372; 96374; 96375; 99284; J1630; J2060; J2270; J2405; J2550; J7030

== ENCOUNTER 2021-09-27 14:39 | Oncology outpatient (recurring) (ONCR) | payer OTHER, SELFPAY | END 2021-10-04 23:59 | disposition home or self-care (01) | PROVIDERS: PCP Internal Medicine; Visit Provider Nurse Practitioner Family | DX: C50.811 Malignant neoplasm of overlapping sites of right female breast (principal); Z17.1 Estrogen receptor negative status [ER-]; G89.18 Other acute postprocedural pain; Z90.11 Acquired absence of right breast and nipple | CPT/HCPCS: 99214 ==

== ENCOUNTER 2022-01-24 13:14 | Emergency (ER) | payer OTHER, SELFPAY ==
[2022-01-24 13:39] VITALS: BP 155/90; PULSE 67; RESP 15; TEMP 36.9; O2SAT 96; BMI 21.2
--- NOTE | 2022-01-24 17:07 | ED_ITS ---
Documented by User: Collin Maldonado 01/31/22 08:11 HPI - Nausea/Vomiting/Diarrhea General: Chief complaint: Nausea/Vomiting/Diarrhea Stated complaint: n/v Time Seen by Provider: 01/24/22 16:59 Source: patient Mode of arrival: ambulatory History of Present Illness: 61-year-old female presents emergency room with persistent nausea vomiting for the last several days. I had seen her in September of this year she attributed all of her symptoms to antibiotic she was given for H. pylori at that time she also uses medical marijuana. Evidently she states that she had reattempted the course of antibiotics for the H. pylori and finished it she told me 6 days ago she told the nurse about 4 days ago. She has not followed up with Dr. Mercer since this summer. She denies any fever sweats or chills. No cough or shortness of breath. Her main complaint today is persistent nausea vomiting. MD elicited complaint: nausea and vomiting Onset (ago): day(s) (-) Description of vomiting: watery and bilious Associated nausea: Yes Associated abdominal pain: Yes (Abdominal wall pain from recurrent vomiting) Location of pain: Diffuse Severity: mild Quality: cramping Exacerbating factors: none Relieving factors: none Associated symtoms: Reports anorexia, malaise and nausea; Denies altered mental status, anxiety, bloating, change in vision, chest pain, cough, diaphoresis, decreased urine output, dizziness, dysuria, epistaxis, fatigue, fecal incontinence, fevers/chills, headache(s), myalgias, numbness, palpitations, rash, short of breath, syncope, tenesmus, tinnitus or weakness Review of Systems Const: Reports: malaise; Denies: fever(s), chills, fatigue or diaphoresis Eyes: Denies: change in vision ENMT: Denies: throat pain, tinnitus or epistaxis Card: Denies: chest pain, palpitations or syncope Resp: Denies: dyspnea, productive cough or non-productive cough GI: Reports: abdominal pain (Abdominal wall pain recurrent bout nausea vomiting), nausea and vomiting; Denies: bloating or fecal incontinence : Denies: flank pain, difficulty voiding, dysuria, urinary frequency or urinary urgency Musc: Denies: neck pain or back pain Skin/Breast: Denies: rash or pruritus Neuro: Denies: headache(s) or dizziness Psych: Denies: anxiety PFSH ED PFSH: Medical History Breast cancer, right History of cancer chemotherapy HTN (hypertension), benign Post-mastectomy pain Surgical History H/O breast reconstruction H/O total mastectomy of right breast History of cholecystectomy History of dental surgery dental implants on top. S/P TRAM (transverse rectus abdominis muscle) flap breast reconstruction Status post left breast lumpectomy (03/28/20) Family History Grandfather Stroke Cancer CAD (coronary artery disease) Mother Cancer Grandmother CAD (coronary artery disease) Stroke Father CAD (coronary artery disease) Clotting disorder Hyperlipidemia Other Hypertension Suicide Denies family history of Diabetes Dementia Psychiatric illness Chronic kidney disease (CKD) Anesthesia complication Bleeding disorder Lung disease Social History Smoking and tobacco status: current every day smoker cigarettes Packs smoked per day: 0.5 Alcohol intake: never History of recent travel: No Physical Exam Const: COMMON NORMALS: no acute distress EXAM LIMITATIONS: no altered mental status GENERAL APPEARANCE: cooperative and comfortable ORIENTATION/CONSCIOUSNESS: Yes awake, Yes oriented to person, Yes oriented to place and Yes oriented to time HENMT: COMMON NORMALS: normocephalic, atraumatic and hearing grossly normal bilaterally HEAD & SCALP: normocephalic and atraumatic Resp: COMMON NORMALS: normal respiratory effort, No retractions, No use of accessory muscles and clear to auscultation bilaterally AUSCULTATION: clear to auscultation bilaterally Cardio: COMMON NORMALS: regular rate, regular rhythm and No murmurs present (Cardio) RATE: regular rate RHYTHM: regular rhythm GI: COMMON NORMALS: Soft to palpation and No hepatosplenomegaly present AUSCULTATION: Yes normoactive bowel sounds PALPATION: Yes Soft to palpation, No Tenderness to palpation present (GI), No Guarding due to palpation present (GI) and Yes No hepatosplenomegaly present Extremity: COMMON NORMALS: normal to inspection, capillary refill normal, no clubbing, cyanosis or edema, no calf tenderness and no pedal edema Neuro: SENSORIUM/ORIENTATION: Yes oriented to person, Yes oriented to place and Yes oriented to time Skin: COMMON NORMALS: no rashes or lesions noted GENERAL SKIN EXAM: no rashes or lesions noted Course Vital Signs: Vital signs: Vital Signs Temperature 98.5 F 01/24/22 13:39 Pulse Rate 59 L 01/24/22 19:27 Respiratory Rate 16 01/24/22 19:27 Blood Pressure 152/81 01/24/22 18:48 Pulse Oximetry 96 01/24/22 19:27 Oxygen Delivery Me thod 01/24/22 18:47 MDM - Nausea/Vomiting/Diarrhea Medical Records I reviewed the patient's medical records. Lab Data I reviewed the patient's lab results. : 01/24/22 17:34 01/24/22 17:34 Laboratory Results WBC 9.7 10^3/uL (4.0-10.0) 01/24/22 17:34 RBC 4.96 10^6/uL (4.1-5.3) 01/24/22 17:34 Hgb 15.5 g/dL (11.5-15.3) H 01/24/22 17:34 Hct 46.1 % (37.0-47.0) 01/24/22 17:34 MCV 92.9 fl (81-99) 01/24/22 17:34 MCH 31.3 pg (28.0-34.0) 01/24/22 17:34 MCHC 33.6 g/dL (30.0-36.0) 01/24/22 17:34 RDW 13.7 % (12.1-15.1) 01/24/22 17:34 Plt Count 306 10^3/cmm (130-400) 01/24/22 17:34 MPV 9.8 fL (7.4-10.4) 01/24/22 17:34 Neut % (Auto) 58.0 % 01/24/22 17:34 Lymph % (Auto) 32.3 % 01/24/22 17:34 Canadian % (Auto) 6.7 % 01/24/22 17:34 Eos % (Auto) 2.0 % 01/24/22 17:34 Baso % (Auto) 0.7 % 01/24/22 17:34 Neut # (Auto) 5.60 10^3/uL (1.8-7.7) 01/24/22 17:34 Lymph # (Auto) 3.1 10^3/uL (0.8-4.8) 01/24/22 17:34 Canadian # (Auto) 0.7 10^3/uL (0.2-0.9) 01/24/22 17:34 Eos # (Auto) 0.2 10^3/uL (0.0-0.8) 01/24/22 17:34 Baso # (Auto) 0.1 10^3/uL (0.0-0.1) 01/24/22 17:34 Nucleated RBC % (auto) 0 % 01/24/22 17:34 Nucleated RBCs # 0.0 /100WBC 01/24/22 17:34 Sodium 138 mmol/L (136-145) 01/24/22 17:34 Potassium 3.4 mmol/L (3.5-5.1) L 01/24/22 17:34 Chloride 100 mmol/L (98-107) 01/24/22 17:34 Carbon Dioxide 27 mmol/L (22-29) 01/24/22 17:34 Anion Gap 14.4 (5-19) 01/24/22 17:34 BUN 9 mg/dL (8-23) 01/24/22 17:34 Creatinine 0.7 mg/dL (0.5-0.9) 01/24/22 17:34 GFR Calculation 85.4 mL/min (90-130) L 01/24/22 17:34 Glucose 96 mg/dL (65-115) 01/24/22 17:34 Calculated Osmolality 285 mOsm/kg (285-295) 01/24/22 17:34 Calcium 9.9 mg/dL (8.5-10.5) 01/24/22 17:34 Total Bilirubin 0.4 mg/dL (0.15-1.2) 01/24/22 17:34 AST 13 U/L (0-32) 01/24/22 17:34 ALT 6 U/L (0-33) 01/24/22 17:34 Alkaline Phosphatase 77 U/L (35-105) 01/24/22 17:34 Total Protein 7.2 g/dL (6.6-8.7) 01/24/22 17:34 Albumin 3.9 g/dL (3.5-5.2) 01/24/22 17:34 Globulin 3.3 g/dL (1.3-4.6) 01/24/22 17:34 Lipase 19 U/L (13-60) 01/24/22 17:34 Urine Color Yellow (Yellow) 01/24/22 18:35 Urine Appearance Clear (CLEAR) 01/24/22 18:35 Urine pH 7 (5-7) 01/24/22 18:35 Ur Specific Hammond 1.010 (1.005-1.030) 01/24/22 18:35 Urine Protein Neg (Negative) 01/24/22 18:35 Urine Glucose (UA) Norm (Normal) 01/24/22 18:35 Urine Ketones Negative (Negative) 01/24/22 18:35 Urine Blood Neg (Negative) 01/24/22 18:35 Urine Nitrate Negative (Negative) 01/24/22 18:35 Urine Bilirubin Neg (Negative) 01/24/22 18:35 Urine Urobilinogen Norm mg/dL (Negative) 01/24/22 18:35 Ur Leukocyte Esterase Negative (Negative) 01/24/22 18:35 Discharge Plan Discharge Patient Disposition: Home Clinical Impression: Vomiting Condition: Stable Prescriptions: New ondansetron 4 mg tablet,disintegrating 4 mg PO Q6H PRN (Reason: nausea and vomiting) Qty: 14 0RF No Action amlodipine 5 mg tablet 5 mg PO ONCE alprazolam [Xanax] 0.25 mg tablet 0.5 mg PO QID PRN (Reason: Anxiety) promethazine 25 mg suppository 25 mg MS Q6H PRN (Reason: nausea and vomiting) Qty: 12 3RF morphine 30 mg tablet 30 mg PO QID PRN (Reason: pain) 30 Days Qty: 120 0RF metoprolol tartrate 50 mg Tablet 100 mg PO BID promethazine 25 mg tablet 25 mg PO Q6H PRN (Reason: nausea and vomiting) Qty: 20 0RF Protonix 40 mg tablet,delayed release (DR/EC) 40 mg PO BID Qty: 60 0RF Discharge Orders: Discharge ED (Routine); Ordered 01/24/22 Ordered By: Pam Wallre Referrals: Gianluca Elias DO [Primary Care Provider] - Discharge Diet: Advance as tolerated Discharge Activity: Resume usual activity Coding Level of Care Code ED Sewage Disposal Worker for Chg Fwd Exam Detailed Documented by User: Pam Waller MD 01/24/22 19:04 HPI - Nausea/Vomiting/Diarrhea General: Chief complaint: Nausea/Vomiting/Diarrhea Stated complaint: n/v Time Seen by Provider: 01/24/22 16:59 PFSH ED PFSH: Medical History Breast cancer, right History of cancer chemotherapy HTN (hypertension), benign Post-mastectomy pain Surgical History H/O breast reconstruction H/O total mastectomy of right breast History of cholecystectomy History of dental surgery dental implants on top. S/P TRAM (transverse rectus abdominis muscle) flap breast reconstruction Status post left breast lumpectomy (03/28/20) Family History Grandfather Stroke Cancer CAD (coronary artery disease) Mother Cancer Grandmother CAD (coronary artery disease) Stroke Father CAD (coronary artery disease) Clotting disorder Hyperlipidemia Other Hypertension Suicide Denies family history of Diabetes Dementia Psychiatric illness Chronic kidney disease (CKD) Anesthesia complication Bleeding disorder Lung disease Social History Smoking and tobacco status: current every day smoker cigarettes Packs smoked per day: 0.5 Alcohol intake: never History of recent travel: No Course Vital Signs: Vital signs: Vital Signs Temperature 98.5 F 01/24/22 13:39 Pulse Rate 59 L 01/24/22 19:27 Respiratory Rate 16 01/24/22 19:27 Blood Pressure 152/81 01/24/22 18:48 Pulse Oximetry 96 01/24/22 19:27 Oxygen Delivery Me thod 01/24/22 18:47 MDM - Nausea/Vomiting/Diarrhea Medical Decision Making Patient presents here with vomiting she feels much improved here after Haldol she is well-appearing here she is stable for discharge she is to follow-up with Dr. Villarreal she is to return if worsening she understands agrees to plan. Lab Data : 01/24/22 17:34 01/24/22 17:34 Laboratory Results WBC 9.7 10^3/uL (4.0-10.0) 01/24/22 17:34 RBC 4.96 10^6/uL (4.1-5.3) 01/24/22 17:34 Hgb 15.5 g/dL (11.5-15.3) H 01/24/22 17:34 Hct 46.1 % (37.0-47.0) 01/24/22 17:34 MCV 92.9 fl (81-99) 01/24/22 17:34 MCH 31.3 pg (28.0-34.0) 01/24/22 17:34 MCHC 33.6 g/dL (30.0-36.0) 01/24/22 17:34 RDW 13.7 % (12.1-15.1) 01/24/22 17:34 Plt Count 306 10^3/cmm (130-400) 01/24/22 17:34 MPV 9.8 fL (7.4-10.4) 01/24/22 17:34 Neut % (Auto) 58.0 % 01/24/22 17:34 Lymph % (Auto) 32.3 % 01/24/22 17:34 Canadian % (Auto) 6.7 % 01/24/22 17:34 Eos % (Auto) 2.0 % 01/24/22 17:34 Baso % (Auto) 0.7 % 01/24/22 17:34 Neut # (Auto) 5.60 10^3/uL (1.8-7.7) 01/24/22 17:34 Lymph # (Auto) 3.1 10^3/uL (0.8-4.8) 01/24/22 17:34 Canadian # (Auto) 0.7 10^3/uL (0.2-0.9) 01/24/22 17:34 Eos # (Auto) 0.2 10^3/uL (0.0-0.8) 01/24/22 17:34 Baso # (Auto) 0.1 10^3/uL (0.0-0.1) 01/24/22 17:34 Nucleated RBC % (auto) 0 % 01/24/22 17:34 Nucleated RBCs # 0.0 /100WBC 01/24/22 17:34 Sodium 138 mmol/L (136-145) 01/24/22 17:34 Potassium 3.4 mmol/L (3.5-5.1) L 01/24/22 17:34 Chloride 100 mmol/L (98-107) 01/24/22 17:34 Carbon Dioxide 27 mmol/L (22-29) 01/24/22 17:34 Anion Gap 14.4 (5-19) 01/24/22 17:34 BUN 9 mg/dL (8-23) 01/24/22 17:34 Creatinine 0.7 mg/dL (0.5-0.9) 01/24/22 17:34 GFR Calculation 85.4 mL/min (90-130) L 01/24/22 17:34 Glucose 96 mg/dL (65-115) 01/24/22 17:34 Calculated Osmolality 285 mOsm/kg (285-295) 01/24/22 17:34 Calcium 9.9 mg/dL (8.5-10.5) 01/24/22 17:34 Total Bilirubin 0.4 mg/dL (0.15-1.2) 01/24/22 17:34 AST 13 U/L (0-32) 01/24/22 17:34 ALT 6 U/L (0-33) 01/24/22 17:34 Alkaline Phosphatase 77 U/L (35-105) 01/24/22 17:34 Total Protein 7.2 g/dL (6.6-8.7) 01/24/22 17:34 Albumin 3.9 g/dL (3.5-5.2) 01/24/22 17:34 Globulin 3.3 g/dL (1.3-4.6) 01/24/22 17:34 Lipase 19 U/L (13-60) 01/24/22 17:34 Urine Color Yellow (Yellow) 01/24/22 18:35 Urine Appearance Clear (CLEAR) 01/24/22 18:35 Urine pH 7 (5-7) 01/24/22 18:35 Ur Specific Hammond 1.010 (1.005-1.030) 01/24/22 18:35 Urine Protein Neg (Negative) 01/24/22 18:35 Urine Glucose (UA) Norm (Normal) 01/24/22 18:35 Urine Ketones Negative (Negative) 01/24/22 18:35 Urine Blood Neg (Negative) 01/24/22 18:35 Urine Nitrate Negative (Negative) 01/24/22 18:35 Urine Bilirubin Neg (Negative) 01/24/22 18:35 Urine Urobilinogen Norm mg/dL (Negative) 01/24/22 18:35 Ur Leukocyte Esterase Negative (Negative) 01/24/22 18:35 Discharge Plan Discharge Patient Disposition: Home Clinical Impression: Vomiting Condition: Stable Prescriptions: New ondansetron 4 mg tablet,disintegrating 4 mg PO Q6H PRN (Reason: nausea and vomiting) Qty: 14 0RF No Action amlodipine 5 mg tablet 5 mg PO ONCE alprazolam [Xanax] 0.25 mg tablet 0.5 mg PO QID PRN (Reason: Anxiety) promethazine 25 mg suppository 25 mg MS Q6H PRN (Reason: nausea and vomiting) Qty: 12 3RF morphine 30 mg tablet 30 mg PO QID PRN (Reason: pain) 30 Days Qty: 120 0RF metoprolol tartrate 50 mg Tablet 100 mg PO BID promethazine 25 mg tablet 25 mg PO Q6H PRN (Reason: nausea and vomiting) Qty: 20 0RF Protonix 40 mg tablet,delayed release (DR/EC) 40 mg PO BID Qty: 60 0RF Discharge Orders: Discharge ED (Routine); Ordered 01/24/22 Ordered By: Pam Waller Referrals: Gianluca Elias DO [Primary Care Provider] - Discharge Diet: Advance as tolerated Discharge Activity: Resume usual activity Coding Level of Care Code ED Sewage Disposal Worker for Chg Fwd Exam Detailed
[2022-01-24 17:14] VITALS: BP 178/93; PULSE 61; RESP 16; O2SAT 94
[2022-01-24] MEDS: midazolam 1 mg/mL INJ 2 mL IVP (17:22)
[2022-01-24] MEDS: haloperidol inj 5 mg/mL INJ 1 mL 2.5 MG IVP (17:22)
[2022-01-24] MEDS: sodium chloride 0.9% 1,000 ML 999 ML IV ×2 (17:23→17:24)
[2022-01-24 17:44] LABS: Basophils # 0.1 10^3/uL (0.0-0.1); Basophils % 0.7 %; Eosinophils # 0.2 10^3/uL (0.0-0.8); Hematocrit 46.1 % (37.0-47.0); Hemoglobin 15.5 g/dL (11.5-15.3); Lymphocytes # 3.1 10^3/uL (0.8-4.8); Lymphocytes % 32.3 %; Mean Corpuscular HGB Conc 33.6 g/dL (30.0-36.0); Mean Corpuscular Hemoglobin 31.3 pg (28.0-34.0); Mean Corpuscular Volume 92.9 fl (81-99); Mean Platelet Volume 9.8 fL (7.4-10.4); Monocytes # 0.7 10^3/uL (0.2-0.9); Monocytes % 6.7 %; Nucleated Red Blood Cells % 0 %; Platelet Count 306 10^3/cmm (130-400); Red Blood Count 4.96 10^6/uL (4.1-5.3); Red Cell Distribution Width 13.7 % (12.1-15.1); White Blood Count 9.7 10^3/uL (4.0-10.0)
[2022-01-24 18:04] LABS: Alanine Aminotransferase 6 U/L (0-33); Albumin Level 3.9 g/dL (3.5-5.2); Alkaline Phosphatase 77 U/L (35-105); Anion Gap 14.4 (5-19); Aspartate Amino Transferase 13 U/L (0-32); Blood Urea Nitrogen 9 mg/dL (8-23); Calcium 9.9 mg/dL (8.5-10.5); Carbon Dioxide 27 mmol/L (22-29); Chloride 100 mmol/L (98-107); Creatinine Clr Calc Pharmacy 77.4768; Globulin 3.3 g/dL (1.3-4.6); Glomerular Filtration Rate 85.4 mL/min (90-130); Glucose 96 mg/dL (65-115); Lipase 19 U/L (13-60); Osmolality Calculated 285 mOsm/kg (285-295); Potassium 3.4 mmol/L (3.5-5.1); Sodium 138 mmol/L (136-145); Total Bilirubin 0.4 mg/dL (0.15-1.2); Total Protein 7.2 g/dL (6.6-8.7)
[2022-01-24 18:43] LABS: Add Urine Microscopic? NO; Charge for UA Resulting for Rev
[2022-01-24 18:47] VITALS: BP 152/81; PULSE 60; RESP 17; O2SAT 97
[2022-01-24 18:48] VITALS: BP 152/81; PULSE 60; RESP 17; O2SAT 97
[2022-01-24 18:48] LABS: Bilirubin Urine Neg (Negative); Blood Urine Neg (Negative); Glucose Urine UA Norm (Normal); Ketones Urine Negative (Negative); Leukocyte Esterase Urine Negative (Negative); Nitrate Urine Negative (Negative); Protein Urine Neg (Negative); Urine Appearance Clear (CLEAR); Urine Color Yellow (Yellow); Urobilinogen Urine Norm (Negative); pH Urine 7 (5-7)
[2022-01-24 19:27] VITALS: PULSE 59; RESP 16; O2SAT 96
== END 2022-01-24 19:17 | disposition home or self-care (01) ==
PROVIDERS: Registered Nurse; Emergency Provider Emergency Medicine; PCP Internal Medicine
DX: R11.11 Vomiting without nausea (principal); Z85.3 Personal history of malignant neoplasm of breast; Z92.21 Personal history of antineoplastic chemotherapy; I10 Essential (primary) hypertension; F17.210 Nicotine dependence, cigarettes, uncomplicated
CPT/HCPCS: 80053; 81003; 83690; 85025; 96361; 96374; 96375; 99284; J1630; J2250; J7030

== ENCOUNTER 2022-05-08 14:40 | Outpatient (CLI) | payer OTHER, SELFPAY ==
--- NOTE | 2022-05-08 14:44 | MM_ITS ---
WS: [id number] LEFT 3D TOMOSYNTHESIS DIGITAL MAMMOGRAPHY WITH CAD CLINICAL INFORMATION: HX OF BR CA HISTORY: Prior RIGHT mastectomy. Prior LEFT areola relocation surgery. History of benign LEFT lumpect latisha. COMPARISON: December 03, 2019 TECHNIQUE: 3 views of the left breast were obtained. FINDINGS: The left breast is composed of heterogeneous fibroglandular density tissue, which can limit the detec tion of small underlying mass lesions. Prior postoperative changes LEFT breast areola and LEFT breast lumpectomy. Single lucent centered calcification. Vascular calcifications. No suspicious focal mass, asymmetry, calcifications, or architectural distortion. No evidence of josé miguel gnancy. MM/[place] [id number] IMPRESSION: BI-RADS: 2-Benign FOLLOW UP: 1 Year Follow-up Recommend return to annual diagnostic mammography.
== END 2022-05-08 14:41 | disposition home or self-care (01) ==
PROVIDERS: PCP Nurse Practitioner Family; Visit Provider Internal Medicine Medical Oncology
DX: Z85.3 Personal history of malignant neoplasm of breast (principal)
CPT/HCPCS: 77061; G0279

== ENCOUNTER 2022-05-31 08:00 | Oncology outpatient (recurring) (ONCR) | payer OTHER, SELFPAY ==
[2022-05-31 08:39] LABS: Basophils # 0.1 10^3/uL (0.0-0.1); Basophils % 0.8 %; Eosinophils # 0.3 10^3/uL (0.0-0.8); Eosinophils % 3.4 %; Hematocrit 47.1 % (37.0-47.0); Hemoglobin 15.4 g/dL (11.5-15.3); Lymphocytes # 2.5 10^3/uL (0.8-4.8); Lymphocytes % 27.2 %; Mean Corpuscular HGB Conc 32.7 g/dL (30.0-36.0); Mean Corpuscular Hemoglobin 30.8 pg (28.0-34.0); Mean Corpuscular Volume 94.2 fl (81-99); Mean Platelet Volume 9.6 fL (7.4-10.4); Monocytes # 0.6 10^3/uL (0.2-0.9); Monocytes % 6.8 %; Neutrophils # 5.72 10^3/uL (1.8-7.7); Neutrophils % 61.5 %; Nucleated Red Blood Cells % 0 %; Platelet Count 322 10^3/cmm (130-400); White Blood Count 9.3 10^3/uL (4.0-10.0)
[2022-05-31] MEDS: sodium chloride 0.9% 1,000 ML 999 ML IV (08:52)
[2022-05-31 08:53] VITALS: RESP 14
[2022-05-31] MEDS: famotidine 20 mg/2 mL INJ IVP (08:53)
[2022-05-31] MEDS: HYDROmorphone 1 mg/mL INJ 1 mL 2 MG IVP ×2 (08:53→09:51)
[2022-05-31] MEDS: LORazepam 2 mg/mL INJ 1 mL 1 MG IVP (08:54)
[2022-05-31 09:04] LABS: Alanine Aminotransferase 7 U/L (0-33); Albumin Level 4.2 g/dL (3.5-5.2); Alkaline Phosphatase 107 U/L (35-105); Anion Gap 12.7 (5-19); Aspartate Amino Transferase 13 U/L (0-32); Blood Urea Nitrogen 9 mg/dL (8-23); Calcium 9.8 mg/dL (8.5-10.5); Carbon Dioxide 31 mmol/L (22-29); Chloride 100 mmol/L (98-107); Globulin 3.2 g/dL (1.3-4.6); Glomerular Filtration Rate 85.4 mL/min (90-130); Glucose 94 mg/dL (65-115); Lipase 22 U/L (13-60); Osmolality Calculated 288 mOsm/kg (285-295); Potassium 3.7 mmol/L (3.5-5.1); Sodium 140 mmol/L (136-145); Total Bilirubin 0.2 mg/dL (0.15-1.2); Total Protein 7.4 g/dL (6.6-8.7)
[2022-05-31 09:51] VITALS: RESP 14
== END 2022-06-04 23:59 | disposition home or self-care (01) ==
PROVIDERS: PCP Nurse Practitioner Family; Visit Provider Internal Medicine Medical Oncology
DX: R11.0 Nausea (principal); R10.84 Generalized abdominal pain; F41.9 Anxiety disorder, unspecified; Z79.891 Long term (current) use of opiate analgesic; Z79.899 Other long term (current) drug therapy
CPT/HCPCS: 80053; 83690; 85025; 96360; 96374; 96375; 96376; J1170; J2060; J3490; J7030

== ENCOUNTER 2022-07-10 11:34 | Oncology outpatient (recurring) (ONCR) | payer OTHER, SELFPAY ==
[2022-07-10] MEDS: sodium chloride 0.9% 1,000 ML 999 ML IV (12:09)
[2022-07-10] MEDS: ondansetron 2 mg/ML SDV 2 mL 8 MG IVP (12:14)
[2022-07-10] MEDS: LORazepam 2 mg/mL INJ 1 mL 1 MG IVP (12:20)
[2022-07-10 12:23] VITALS: RESP 18; O2SAT 96
[2022-07-10] MEDS: HYDROmorphone 1 mg/mL INJ 1 mL 2 MG IVP ×2 (12:23→14:08)
[2022-07-10 15:18] VITALS: BP 122/74; PULSE 80; RESP 16; TEMP 36.4; O2SAT 96
== END 2022-08-04 23:59 | disposition home or self-care (01) ==
PROVIDERS: PCP Nurse Practitioner Family; Visit Provider Internal Medicine Medical Oncology
DX: C50.811 Malignant neoplasm of overlapping sites of right female breast (principal); Z17.1 Estrogen receptor negative status [ER-]; R11.2 Nausea with vomiting, unspecified; R10.84 Generalized abdominal pain; Z79.899 Other long term (current) drug therapy
CPT/HCPCS: 96360; 96361; 96375; J1170; J2060; J2405; J7030

== ENCOUNTER 2022-08-22 14:08 | Oncology outpatient (recurring) (ONCR) | payer OTHER, SELFPAY ==
[2022-08-22 14:15] VITALS: BP 170/96; PULSE 90; RESP 18; TEMP 37.3; O2SAT 94
[2022-08-22] MEDS: sodium chloride 0.9% 1,000 ML 999 ML IV (14:42)
[2022-08-22] MEDS: dexamethasone 10 mg/mL INJ IVP (14:43)
[2022-08-22] MEDS: ondansetron 2 mg/ML SDV 2 mL 8 MG IVP (14:43)
[2022-08-22 14:59] LABS: Basophils # 0.1 10^3/uL (0.0-0.1); Basophils % 0.9 %; Eosinophils # 0.3 10^3/uL (0.0-0.8); Eosinophils % 3.4 %; Hematocrit 47.1 % (37.0-47.0); Hemoglobin 15.5 g/dL (11.5-15.3); Lymphocytes # 2.3 10^3/uL (0.8-4.8); Lymphocytes % 28.7 %; Mean Corpuscular HGB Conc 32.9 g/dL (30.0-36.0); Mean Corpuscular Hemoglobin 30.8 pg (28.0-34.0); Mean Corpuscular Volume 93.5 fl (81-99); Mean Platelet Volume 10.2 fL (7.4-10.4); Monocytes # 0.6 10^3/uL (0.2-0.9); Monocytes % 7.8 %; Neutrophils # 4.76 10^3/uL (1.8-7.7); Neutrophils % 59.1 %; Nucleated Red Blood Cells % 0 %; Platelet Count 318 10^3/cmm (130-400); Red Blood Count 5.04 10^6/uL (4.1-5.3); Red Cell Distribution Width 12.4 % (12.1-15.1); White Blood Count 8.1 10^3/uL (4.0-10.0)
[2022-08-22 15:16] LABS: Alanine Aminotransferase < 5 U/L (0-33); Albumin Level 4.2 g/dL (3.5-5.2); Alkaline Phosphatase 66 U/L (35-105); Aspartate Amino Transferase 13 U/L (0-32); Blood Urea Nitrogen 8 mg/dL (8-23); Calcium 9.5 mg/dL (8.5-10.5); Carbon Dioxide 27 mmol/L (22-29); Chloride 100 mmol/L (98-107); Glomerular Filtration Rate 73.2 mL/min (90-130); Glucose 115 mg/dL (65-115); Osmolality Calculated 285 mOsm/kg (285-295); Sodium 138 mmol/L (136-145); Total Bilirubin 0.3 mg/dL (0.15-1.2); Total Protein 7.2 g/dL (6.6-8.7)
[2022-08-22 15:18] LABS: Anion Gap 14.7 (5-19); Potassium 3.7 mmol/L (3.5-5.1)
[2022-08-22 16:06] VITALS: BP 159/83; PULSE 84; RESP 18; TEMP 37.2; O2SAT 95
[2022-08-22 16:38] LABS: Lipase 25 U/L (13-60)
== END 2022-09-04 23:59 | disposition home or self-care (01) ==
PROVIDERS: PCP Nurse Practitioner Family; Visit Provider Internal Medicine Medical Oncology
DX: R10.9 Unspecified abdominal pain (principal); A04.8 Other specified bacterial intestinal infections; C50.911 Malignant neoplasm of unspecified site of right female breast
CPT/HCPCS: 80053; 83690; 85025; 87338; 96361; 96374; 96375; J1100; J2405; J7030

== ENCOUNTER 2022-12-02 14:53 | Oncology outpatient (recurring) (ONCR) | payer OTHER, SELFPAY ==
--- OUTSIDE RECORDS SUMMARY | 2022-12-02 14:55 | XMS_ITS | Patient Health Record ---
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 Name Role Phone CARBALLO, [facility] Primary Care Provider Unavailabl e Carballo, Mirta Unavailable [phone] Feliciano Dwyer Unavailable [phone] AdrienneKokoon Unavailable [phone] Peewee Villarreal Unavailable [phone] ALLERGIES Allergen (clinical drug ingredient) Drug/Non Drug Allergy documented on EMR Reaction Allergy Type Onset Date Status sucralfate Carafate Unknown Drug Allergy Active Penicillin Unknown Drug Allergy Active vancomycin Vancomycin Unknown Drug Allergy Activ e RESULTS Component Value Reference Range Notes MRI Abdomen MRCP w/o Cont-[id number] Reviewed date:05/20/2022 01:42:46 PM Interpretation: Performing Lab: Notes/Report: [id number]&org=iSite NM Gastric Emptying Study-78 264 Reviewed date:04/24/2022 09:34:00 AM Interpretation: Performing Lab: Notes/Report: [id number]=[id number]&org=iSite NM Gastric Emptying Study-78 264 Reviewed date:04/24/2022 09:33:54 AM Interpretation: Performing Lab: Notes/Report: See Below For Report NM Gastric Emptying Study Diagnosis Description: Generalized abdominal pain Comprehensive Metabolic Pane l [id number] Reviewed date:04/22/2022 09:36:53 PM Interpretation: Performing Lab: Notes/Report: Diagnosis Description: Essential (primary) hypertension Glucose Serum 130 71-110 MG/DL BUN 9 7-21 MG/DL Creat .69 .51-1.17 MG/DL H-rrjyko-a-benzoquinone imine (NAPQI) is a metabolite of acetaminophen, NAPQI concentrations of apparoximately 10 mg/L correlation to toxic levels of acetaminophen demonstrates a greater than or equil to 10% change in results. NAPQI concentrations greater than this may lead to falsely depressed results for patient samples. Use of this assay is not recommended for patients undergoing treatment with phenindione, due to the potential for falsely depressed results. GFR 98.9 Calculation per formed from GFR calculator provided by the [employer]. Glomerular Filtration rate(GRF) is the best overall index of kidney function. Normal GFR varies according to age,sex, body size, and declines with age. The National [employer] recommends using the CKD-EPI Creatinine Equation(2009) to estimate GFR. BUN/Creat Ratio 13.0 12.0-20.0 % Total Protein 7.3 5.8-8.0 G/DL Albumin 4.5 3.2-4.8 G/DL Globulin 2.8 2.3-3.5 G/DL Alb/Glob 1.6 0.8-2.2 Calcium 10.2 8.7-10.4 MG/DL Sodium 138 136-145 MMOL/L Potassium 3.8 3.5-5.1 MMOL/L Chloride 98 98-107 MMOL/L CO2 32.1 20.0-31.0 MMOL/L Anion Gap 12 5-15 Alk Phos 66 46-116 Bili Total .4 .3-1.2 MG/DL Use of this ass ay is not recommended for patients undergoing treatment with eltrombopag due to the potential for falsely elevated results. AST/SGOT 16 15-37 UNIT/L ALT/SGPT 10 12-78 UNIT/L Osmo Serum,Calculated 286 280-300 MOSM/KG CBC w\ Auto Diff [id number] Reviewed date:04/22/2022 09:37:08 PM Interpretation: Performing Lab: Notes/Report: Diagnosis Description: Essential (primary) hypertension WBC 8.0 4.5-11.0 X10'3 RBC 4.75 4.00-5.20 X10'6 Hgb 15.0 12.0-16.0 G/DL Hct 44.2 36.0-46.0 % MCV 93.1 80.0-100.0 FL MCH 31.6 27.0-31.0 PG MCHC 33.9 31.0-37.0 G/DL Platelet 297 150-400 X10'3 RDW-SD 45.3 35.0-49.0 FL RDW-CV 13.3 12.2-15.6 % MPV 10.6 9.2-12.0 FL Neutro Auto% 67.8 42.0-75.0 % Lymph Auto% 22.8 20.0-51.0 % Brule Auto% 6.9 1.7-9.3 % Eos Auto% 1.9 .0-6.0 % Baso Auto% 0.5 0.0-1.0 % Imm Gran% .1 .0-.4 % Neutro Abs 5.43 .80-7.70 Lymph Abs 1.82 .10-4.10 Brule Abs .55 .20-1.00 Eos Abs .15 .00-.40 Baso Abs .04 .00-.10 Imm Gran Abs .01 .00-.10 NRBC# .00 .00-.20 X10'3 NRBC% .00 .00-.20 /100 int act WBC's Thyroxine (T4) 32043 Reviewed date:04/22/2022 09:37:20 PM Interpretation: Performing Lab: Notes/Report: Diagnosis Description: Encounter for screening for other suspected endocrine disorder ThyroxinT4 10.4 4.8-13.9 Lipid Panel Reflex DLDL 8006 1, 17047 Reviewed date:04/22/2022 09:37:36 PM Interpretation: Performing Lab: Notes/Report: Diagnosis Description: Mixed hyperlipidemia Trig 126 Classification Guidelines:Triglycerides Adults: >20yrs Desirable <150 Borderline High 150-199 High 200-499 Very high >=500 Children: Male 0-4 yr 22-99 5-9 yr 30-101 10-14 yr 32-125 15-19 yr 37-148 Children: Female 0-4 yr 34-112 5-9 yr 32-105 10-14 yr 37-131 15-19 yr 39-132 Chol 211 <=200 MG/DL HDL 42 39-96 MG/DL Reference Ranges:HDL Male: 5-9y 38-75 10-14y 37-74 15-19y 30-63 >=20y 40-59 Female: 5-9y 36-73 10-14y 37-70 15-19y 35-74 >=20y 40-59 CH/HDL 5.0 0.0-4.9 LDL 144 0-130 MG/DL LDL result is i naccurate , if Trig is >400 mg/dl. See DLDL result. Thyroid Stimulating Hormone (TSH) 54078 Reviewed date:04/22/2022 09:37:47 PM Interpretation: Performing Lab: Notes/Report: Diagnosis Description: Encounter for screening for other suspected endocrine disorder TSH 1.372 .358-3.740 MlU/ML MRI Abdomen MRCP w/o Cont-74 181 Reviewed date:05/20/2022 12:07:34 PM Interpretation: Performing Lab: Notes/Report: See Below For Report MRI Abdomen MRCP w/o Cont Echo Complete [id number] Reviewed date:09/20/2022 08:42:49 AM Interpretation: Performing Lab: Notes/Report: edl=[id number]&org=iSite Holter 7 day-[id number] Reviewed date:08/05/2022 05:06:46 PM Interpretation: Performing Lab: Notes/Report: Holter 7 day-[id number] Reviewed date:08/05/2022 05:06:46 PM Interpretation: Performing Lab: Notes/Report: Holter 7 day-[id number] Reviewed date:08/05/2022 05:06:46 PM Interpretation: Performing Lab: Notes/Report: Schedule Confirmation Reviewed date:08/20/2022 10:19:54 AM Interpretation: Performing Lab: Notes/Report: CT Cardiac Scoring Diagnostic Schedule Confirmation Reviewed date:10/09/2022 08:03:18 AM Interpretation: Performing Lab: Notes/Report: CT Cardiac Scoring Diagnostic Echo Complete [id number] Reviewed date:10/22/2022 07:59:52 AM Interpretation: Performing Lab: Notes/Report: Cardiopulmonary Services Name: ZHANE DENISE Study Date: 09/16/2022 : 1960 Patient Location: [facility] Age: 62 yrs Gender: Female HR: 92 Reason For Study: sob dyspnea on exertion Interpretation Summary The left ventricle is normal in size. There is mild concentric left ventricular hypertrophy. Left ventricular systolic function is normal. Left Ventricular Function is estimated to be 60-65%. There is mild tricuspid regurgitation. Right ventricular systolic pressure is elevated at 30-40mmHg. Recommendations Continue present medication. Will continue to follow regularly. Left Ventricle The left ventricle is normal in size. There is mild concentric left ventricular hypertrophy. Left ventricular systolic function is normal. Left Ventricular Function is estimated to be 60-65%. Atria The left atrial size is normal. Right atrial size is normal. Pericardium/Pleural There is no pericardial effusion. There is no pleural effusion. Mitral Valve The mitral valve leaflets appear normal. There is no evidence of stenosis, fluttering, or prolapse. Aortic Valve The aortic valve is normal in structure and function. Tricuspid Valve There is mild tricuspid regurgitation. Right ventricular systolic pressure is elevated at 30-40mmHg. Pulmonic Valve The pulmonic valve leaflets are thin and pliable; valve motion is normal. MMode/2D Measurements & Calculations RVDd: 3.0 cm LVIDd: 3.6 cm FS: 31.3 % IVSd: 1.3 cm LVIDs: 2.5 cm EDV(Teich): 53.4 ml ESV(Teich): 21.3 ml EF(Teich): 60.2 % Ao root diam: 3.3 cm asc Aorta Diam: 3.3 cm LVOT diam: 1.8 cm Ao root area: 8.7 cm2 LVOT area: 2.7 cm2 ACS: 1.4 cm LA dimension: 2.7 cm Time Measurements Aortic HR: 90.3 BPM MM HR: 89.4 BPM Doppler Measurements & Calculations MV E max ally: 87.6 cm/sec MV dec slope: 432.6 cm/sec2 Ao V2 max: 178.6 cm/sec MV A max ally: 88.1 cm/sec MV dec time: 0.20 sec Ao max P.8 mmHg MV E/A: 1.00 Ao V2 mean: 125.0 cm/sec Ao mean P.8 mmHg Ao V2 VTI: 33.7 cm SHABBIR(I,D): 1.3 cm2 SHABBIR(V,D): 1.8 cm2 LV V1 max P.9 mmHg CO(LVOT): 4.0 l/min PA V2 max: 98.0 cm/sec LV V1 mean P.3 mmHg SV(LVOT): 44.7 ml PA max P.8 mmHg LV V1 max: 121.5 cm/sec LV V1 mean: 65.8 cm/sec LV V1 VTI: 16.8 cm TR max ally: 284.2 cm/sec RAP systole: 10.0 mmHg TR max P.3 mmHg RVSP(TR): 42.3 mmHg Ordering Physician: Clifford Deleon Referring Physician: Clifford Deleon Performed By: Paola Valerio Echo Schedule Confirmation Reviewed date:11/18/2022 04:22:47 PM Interpretation: Performing Lab: Notes/Report: CT Cardiac Scoring Diagnostic REASON FOR REFERRAL Reason gastritis Diagnosis 1 Gastroesophageal ref lux disease without esophagitis (K21.9) Referral Organization [facility] Referring Provider First Name Mirta Referring Provider Last Name Carballo Referring Provider Speciality Nurse Prac ursulaionegalindo Referred Provider Jermaine Lane Notes Elizabet Oreilly 06/2022 11:25:52 AM >Patient decided to see Dr. Delmer Villarreal. Referral Priority Routine Reason HIGH BP, HEART RATE ISSUES AND SOB Diagnosis 1 Heart rate problem ( R00.9) Diagnosis 2 Hypertension, unspec ified type (I10) Diagnosis 3 SOB (shortness of br eath) (R06.02) Referral Organization [facility] Referring Provider First Name Mirta Referring Provider Last Name Carballo Referring Provider Speciality Nurse Salma birch Referred Organization [facility] Referred Provider Clifford Deleon Referred Address [address] [place] [address],[place],[address], Referred Provider Specialty Cardiology Referral Priority Routine Reason tachycardia Diagnosis 1 Tachycardia (R00.0) Diagnosis 2 Primary hypertension (I10) Diagnosis 3 Nicotine dependence, cigarettes, uncomplicated (F17.210) Referral Organization [facility] Referring Provider First Name Mirta Referring Provider Last Name Carballo Referring Provider Speciality Nurse Salma birch Referred Provider [facility] Referred Provider Specialty Cardiology General Notes Elizabet Oreilly 04/07 10:21:47 AM >Per chart patient has apt on 05/29/[address] Deleon at [facility]., Elizabet Oreilly 08/09/2022 04:31:40 PM >See referral note Referral Priority Routine Referral Appointment Date 08/05/2022 Reason Eval and Treat Diagnosis 1 Atrophic gastritis w ithout hemorrhage (K29.40) Diagnosis 2 Gastroesophageal ref lux disease without esophagitis (K21.9) Diagnosis 3 Sphincter of Oddi dy sfunction (K83.4) Referral Organization [facility] Referring Provider First Name Tony medley Referring Provider Last Name Phil Referring Provider Speciality Internal M edicine Referred Provider Dick Gutierrez Referred Provider Specialty Internal Med icine Referral Priority Routine MEDICATIONS Medication SIG (Take, Route, Frequency, Duration) Notes Start Date End Date Status hydrOXYzine HCl 50 MG 1/2 to 1 tab Orall y every 6 hrs prn anxiety for 30 day(s) Not-Taking Promethegan 25 MG _insert ONE SUPPOSITORY rectally EVERY 6 HOURS NEEDED FOR NAUSEA AND VOMITING Diagnosis Unavailable Rectal for 3 Active traZODone HCl 100 MG TAKE 1 TO 2 TABLETS BY MOUTH ONCE DAILY NEEDED FOR SLEEP Oral Once a day for 30 days Not-Takin g Promethazine HCl 25 MG TAKE 1 TABLET BY MOUTH EVERY 4 TO 6 HOURS NEEDED FOR NAUSEA for 7 Active Ondansetron 4 MG 1 tab Oral q 4 hours prn nausea for 30 days Active ALPRAZolam 0.5 MG 1/2 to 1 tab Orally 4 times a day prn anxiety replaces lorazepam for 30 days 11/29/2022 Active Morphine Sulfate 30 MG TAKE 1 TABLET BY MOUTH FOUR TIMES DAILY NEEDED FOR PAIN Diagnosis Unavailable Orally for 30 Active Metoprolol Tartrate 50 MG 2 tablets with food Orally Twice a day for 90 days Active levoFLOXacin 500 MG 1 tab po q d x 7 d Orally Once a day for 7 days Active Metoclopramide HCl 10 MG Oral for 30 Days Active amLODIPine Besylate 5 MG Take 1 tablet b y mouth once daily for 30 Active LORazepam 1 MG Oral for 30 Days Active SOCIAL HISTORY Tobacco Use: Social History Observation Description Date Details (start date - stop date) Current Smoker NA - NA Sex Assigned At : Social History Observation Description Sex Assigned At Unknown Tobacco Use/Smoking Question Answer Notes Are you a current smoker How often do you smoke cigarettes? every day How many cigarettes a day do you smoke? 5 or les s Are you interested in quitting? Ready to quit Alcohol Screen (Audit-C) Question Answer Notes Did you have a drink containing alcohol in the p ast year? No Points 0 Interpretation Negative PHQ-9 Question Answer Notes Little interest or pleasure in doing things Not at all Feeling down, depressed, or hopeless Not at all Trouble falling or staying asleep, or sleeping t oo much Not at all Feeling tired or having little energy Several da ys Poor appetite or overeating Several days Feeling bad about yourself, or that you are a failure, or have let yourself or your family down Not at all Trouble concentrating on thi ngs, such as reading the newspaper or watching television Not at all Moving or speaking so slowly that other people could have noticed. Or the opposite ? being so fidgety or restless that you have been moving around a lot more than usual Not at all Thoughts that you would be b chandler off , or of hurting yourself in some way Not at all Total Score 2 Interpretation Minimal Depression PROBLEMS Problem Type ICD Code Onset Dates Problem Status W/U Status Risk SNOMED Code Notes Problem Mixed hyperlipidemia (E78.2) Active confirmed 668816599 Problem Nicotine dependence, cigarettes, uncomplicated (F17.210) Active confirmed 72290995 Problem Nausea (R11.0) Active confirmed 8885523 07 Problem Early satiety (R68.81) Active confirmed 265638459 Problem Gastroesophageal reflux disease without esophagitis (K21.9) Active confirmed 198749813 Problem Anxiety (F41.9) Active confirmed 918224 02 Problem SOB (shortness of breath) (R06.02) Active confirmed 223594727 Problem Hypertension, unspecified type (I10) Active confirmed 10913879 Problem Hyponatremia (E87.1) Active confirmed 8 7713001 Problem History of breast cancer (Z85.3) Active confirmed 567469670 Problem Thyroid disorder screen (Z13.29) Active confirmed 269574365 Problem Acute gastritis without hemorrhage, unspecified gastritis type (K29.00) Active confirmed 01229539 Problem Generalized postprandial abdominal pain (R10.84) Active confirmed 473735231 Problem COVID-19 (U07.1) Active confirmed 43165 9006 Problem 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) Active confirmed 374841446 Problem Atrophic gastritis without hemorrhage (K29.40) Active confirmed 99614733 Problem 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) Active confirmed 171561468 Problem Primary hypertension (I10) Active confirmed 24956636 Problem Heart rate problem (R00.9) Active confirmed 870393079 VITAL SIGNS Heart Rate 81 /min 11/22/2022 Temperature 96.3 degrees Fahrenheit 11/22/2022 Respiratory Rate 18 /min 11/22/2022 Height-cm 165.1 cm 11/22/2022 Oximetry 94 % 11/22/2022 Blood pressure diastolic 82 mm Hg 11/22/2022 Weight-kg 63.5 kg 11/22/2022 Height 65 in 11/22/2022 Blood pressure systolic 181 mm Hg 11/22/2022 Weight 140 lbs 11/22/2022 BMI 23.29 kg/m2 11/22/2022 Encounters Encounter Location Date Provider Diagnosis [facility] [address] [address] 12/07/2021 [facility] [address] [address] 01/22/2022 [facility] [address] [address] 03/05/2022 [facility] [address] [facility] [address] [place] [address] 03/08/2022 [facility] [address] [facility] [address] [place] [address] 03/22/2022 [facility] [address] [facility] [address] [place] [address] 03/28/2022 [facility] Gastroesophageal reflux disease without esophagitis K21.9 ; Acute gastritis without hemorrhage, unspecified gastritis type K29.00 and Nausea R11.0 [facility] [address] [place] [address] 04/09/2022 [facility] [address] [facility] [place] [address] 04/16/2022 [facility] [address] [facility] [address] [place] [address] 04/17/2022 [facility] [address] [facility] [address] [place] [address] 04/19/2022 [facility] [address] [place] [address] 04/22/2022 [facility] [address] [facility] [address] 04/22/2022 [facility] [address] [facility] [address] [place] [address] 04/23/2022 [facility] [address] [facility] [address] [place] [address] 07/16/2022 [facility] [address] [place] [address] 08/12/2022 Clifford Deleon [facility] [address] [place] [place] [address] 08/15/2022 [facility] [address] [place] [address] 08/27/2022 Clifford Rodriguezt [facility] [address] [place] [address], [place] [address] 10/14/2022 Clifford Deleon [facility] [address] [place] [address] 11/29/2022 [facility] Nausea R11.0 [facility] Office [address] [place] [address] 11/22/2022 [facility] Bronchitis J40 ; Wheezes R06.2 ; Primary hypertension I10 and Nicotine dependence, cigarettes, uncomplicated F17.210 [facility] [address] [facility] [place] [address] 04/30/2022 Peewee Villarreal [facility] [address] [place] [address] 05/07/2022 [facility] [address] [facility] [address] 05/07/2022 Peewee Villarreal [facility] [address] [place] [address] 05/13/2022 [facility] [address] [facility] [address] 05/21/2022 Peewee Villarreal Gastroesophageal reflux disease without esophagitis K21.9 and Sphincter of Oddi dysfunction K83.4 [facility] [address] [place] [address], [place] [address] 05/29/2022 Clifford Deleon [facility] [address] [place] [address], [place] [address] 08/05/2022 Clifford Deleon SOB (shortness of breath) R06.02 ; Dyspnea on exertion R06.00 ; Palpitations R00.2 ; Cigarette nicotine dependence, uncomplicated F17.210 and Family history of coronary arteriosclerosis Z82.49 Vill[facility] [address] [facility] [address] 04/09/2022 Peewee Villarreal Generalized postprandial abdominal pain R10.84 and Early satiety R68.81 [facility] [address] [place] [address] 10/31/2022 Feliciano Dwyer [address] [place] [address] 10/21/2022 Clifford [facility] [address] [place] [address] 04/16/2022 Mirta Carballo Nausea R11.0 ; Anxie ty F41.9 and Primary hypertension I10 [facility] [address] [place] [address] 04/22/2022 Mirta Carballo Anxiety F41.9 ; Depression, unspecified depression type F32.A ; Primary hypertension I10 ; Tachycardia R00.0 ; Nicotine dependence, cigarettes, uncomplicated F17.210 ; Mixed hyperlipidemia E78.2 ; Hyponatremia E87.1 and Thyroid disorder screen Z13.[address] [place] [address] 09/16/[address] [place] [address] 08/22/2022 [facility] [address] [place] [address] 08/27/2022 [facility] [address] [place] [address] 08/12/2022 Clifford [facility] Palpitations R00.2 ASSESSMENTS Encounter Date Diagnosis Assessment Notes Treatment Notes Treatment Clinical Notes 03/28/2022 Gastroesophageal reflux disease without esophagitis (ICD-10 - K21.9) refer to dr jermaine lane [facility] as per patient request 03/28/2022 Acute gastritis without hemorrhage, unspecified gastritis type (ICD-10 - K29.00) 04/09/2022 Early satiety (ICD-1 0 - R68.81) 04/09/2022 Generalized postprandial abdominal pain (ICD-10 - R10.84) 04/16/2022 Nausea (ICD-10 - R11.0) 04/16/2022 Anxiety (ICD-10 - F41.9) 04/22/2022 Anxiety (ICD-10 - F41.9) 04/22/2022 Depression, unspecified depression type (ICD-10 - F32.A) 05/21/2022 Gastroesophageal reflux disease without esophagitis (ICD-10 - K21.9) 05/21/2022 Sphincter of Oddi dysfunction (ICD-10 - K83.4) 08/05/2022 SOB (shortness of breath) (ICD-10 - R06.02) 08/05/2022 Dyspnea on exertion (ICD-10 - R06.00) 08/12/2022 Palpitations (ICD-10 - R00.2) 11/22/2022 Bronchitis (ICD-10 - J40) levoquin 11/22/2022 Wheezes (ICD-10 - R06.2) albuteral hfa (has medrol dose pack 11/29/2022 Nausea (ICD-10 - R11.0) 11/22/2022 Primary hypertension (ICD-10 - I10) resume metoprolol bid every day continue amlodipine monitor bp 04/22/2022 Primary hypertension (ICD-10 - I10) continue metoprolol 08/05/2022 Palpitations (ICD-10 - R00.2) Holter device was applied today. Patient was instructed on number of days to wear device (7 days). In order to record his symptom patient can double tap the device and needs to record it in their journal. Patient was instructed that there device is water resistant. They can wear the device in the shower as long as the device itself does not become submerged in water. There are extra patches in the kit provided dressing changes were reviewed today if needed. The importance of shipping their device back was stressed. Patient will need to replace the device into the box and take this to the nearest [employer] [facility]. We will contact them with results once the report is received. 03/28/2022 Nausea (ICD-10 - R11.0) 04/16/2022 Primary hypertension (ICD-10 - I10) 04/22/2022 Tachycardia (ICD-10 - R00.0) discussed with patient er if worsens 08/05/2022 Cigarette nicotine dependence, uncomplicated (ICD-10 - F17.210) 11/22/2022 Nicotine dependence, cigarettes, uncomplicated (ICD-10 - F17.210) 08/05/2022 Family history of coronary arteriosclerosis (ICD-10 - Z82.49) 04/22/2022 Nicotine dependence, cigarettes, uncomplicated (ICD-10 - F17.210) discussed with patient tobacco abuse; risks 04/22/2022 Mixed hyperlipidemia (ICD-10 - E78.2) lipids 04/22/2022 Hyponatremia (ICD-10 - E87.1) cmp 04/22/2022 Thyroid disorder screen (ICD-10 - Z13.29) 04/22/2022 Other Venipuncture performed by BLADIMIR Brower to [facility], 22 guage needle, not enough blood obtained, Pt tolerated well, bleeding controlled with light dressing. Lab sent to [facility] via electrical timing device calibrator. Venipuncture: Performed by: Lemuel GARRISON Attempts: x1 Location: [facility] Needle gauge: 22G Patient tolerated well. 08/05/2022 Other We will obtain an echocardiogram, a 7-day Holter monitor and a coronary calcium score. We will have her return for evaluation of above studies to see if there is any abnormalities that would be causing her symptomology. She is a CCS class 1, NYHA class 1 to 2 11/22/2022 Other Questions asked and answered; discharged to home. PLAN OF TREATMENT Pending Test Test Name Order Date Electrocardiogram (EKG) - 31904 08/06/19 CT Cardiac Scoring Diagnostic-[id number] 04/2022 Next Appt Details Provider Name:Feliciano Dwyer , 12/12/2022 11:30:00 AM, [address], [place], [address], Provider Name:Mirta Carballo, 12/31/2022 02:00:00 PM, [address], [place], [address], Insurance Providers Payer Name Payer Address Payer Phone Subscriber Number Group Number Insured Name Patient Relationship to Insured Coverage Start Date Coverage End Date Sheldon [address] [facility] [place] [phone] [id number] Zhane Denise Self - patient is the insured MEDICATIONS ADMINISTERED Medication Instructions Date of Administration Dosage Notes DEPO-Medrol 10/19/2021 [address] [place] [address] 3-1 pt tolerated well/instructed to wait 20 min Dexamethasone 10/19/2021 4 mg ndc 74420-1 573-1 pt tolerated well/instructed pt to wait 20 min MEDICAL (GENERAL) HISTORY Medical History History ICD Code breast cancer right heartburn High Blood Pressure COVID VACCINATION X2 COVID SEPTEMBER 2021 LONG COVID Surgical History Surgery Date(Month/Year) cholecystectomy breast reconstruction breast biopsy left 2020 dilation and curettage Hospitalization History Reason Date(Month/Year) [facility] 07/2022 childbirth see surgical history
[2022-12-02 15:00] VITALS: BP 143/67; PULSE 87; RESP 16; TEMP 36.9; O2SAT 96
[2022-12-02] MEDS: OLANZapine 5 mg TABLET PO (15:21)
[2022-12-02] MEDS: sodium chloride 0.9% 1,000 ML 999 ML IV (15:23)
[2022-12-02 15:47] LABS: Basophils # 0.1 10^3/uL (0.0-0.1); Basophils % 0.4 %; Eosinophils # 0.1 10^3/uL (0.0-0.8); Eosinophils % 0.7 %; Lymphocytes # 2.9 10^3/uL (0.8-4.8); Lymphocytes % 20.8 %; Mean Corpuscular Hemoglobin 31.2 pg (27-33); Mean Corpuscular Volume 94.6 fl (85-98); Mean Platelet Volume 9.4 fL (7.4-10.4); Monocytes # 1.2 10^3/uL (0.2-0.9); Monocytes % 8.5 %; Neutrophils # 9.58 10^3/uL (1.8-7.7); Neutrophils % 69.2 %; Nucleated Red Blood Cells % 0 %; Platelet Count 353 10^3/cmm (157-399); Red Blood Count 4.65 10^6/uL (3.85-5.65); Red Cell Distribution Width 12.9 % (12.1-15.1); White Blood Count 13.84 10^3/uL (3.29-11.43)
[2022-12-02 16:08] LABS: Alanine Aminotransferase < 5 U/L (0-33); Alkaline Phosphatase 79 U/L (35-105); Anion Gap 10.8 (5-19); Aspartate Amino Transferase 13 U/L (0-32); Blood Urea Nitrogen 15 mg/dL (8-23); Calcium 9.4 mg/dL (8.5-10.5); Carbon Dioxide 33 mmol/L (22-29); Chloride 101 mmol/L (98-107); Globulin 2.8 g/dL (1.3-4.6); Glomerular Filtration Rate 72.9 mL/min (90-130); Glucose 88 mg/dL (65-115); Osmolality Calculated 292 mOsm/kg (285-295); Potassium 3.8 mmol/L (3.5-5.1); Sodium 141 mmol/L (136-145); Total Bilirubin 0.3 mg/dL (0.15-1.2); Total Protein 6.8 g/dL (6.6-8.7)
[2022-12-02 17:25] VITALS: BP 147/90; PULSE 98; RESP 16; TEMP 35.8; O2SAT 92
== END 2022-12-05 23:59 | disposition home or self-care (01) ==
LOC: ONCMED 14:53
PROVIDERS: Internal Medicine Medical Oncology; PCP Nurse Practitioner Family; Visit Provider Internal Medicine Medical Oncology
DX: C50.811 Malignant neoplasm of overlapping sites of right female breast (principal); Z17.1 Estrogen receptor negative status [ER-]; Z79.899 Other long term (current) drug therapy
CPT/HCPCS: 80053; 85025; 96365; J1100; J7030

== ENCOUNTER 2022-12-16 14:11 | Oncology outpatient (recurring) (ONCR) | payer OTHER, SELFPAY ==
--- OUTSIDE RECORDS SUMMARY | 2022-12-16 14:14 | XMS_ITS | Patient Health Record ---
Author Name Unknown Organization [facility] Address [address] [place] [address] Care Team Providers Care Patient Service Technician Pst Name Role Phone HARIS, [facility] Primary Care Provider UnavailFeliciano Romero Unavailable [phone] Clifford Deleon Unavailable [phone] Haris Mirta Unavailable [phone] Peewee Villarreal Unavailable ALLERGIES Allergen (clinical drug ingredient) Drug/Non Drug Allergy documented on EMR Reaction Allergy Type Onset Date Status sucralfate Carafate Unknown Drug Allergy Active Penicillin Unknown Drug Allergy Active vancomycin Vancomycin Unknown Drug Allergy Activ e RESULTS Component Value Reference Range Notes MRI Abdomen MRCP w/o Cont-74 [id number] Reviewed date:05/20/2022 01:42:46 PM Interpretation: Performing Lab: Notes/Report: [id number]=iSite NM Gastric Emptying Study-78 264 Reviewed date:04/24/2022 09:34:00 AM Interpretation: Performing Lab: Notes/Report: [id number]&org=iSite NM Gastric Emptying Study-78 264 Reviewed date:04/24/2022 09:33:54 AM Interpretation: Performing Lab: Notes/Report: See Below For Report NM Gastric Emptying Study Diagnosis Description: Generalized abdominal pain Comprehensive Metabolic Pane l 08502 Reviewed date:04/22/2022 09:36:53 PM Interpretation: Performing Lab: Notes/Report: Diagnosis Description: Essential (primary) hypertension Glucose Serum 130 71-110 MG/DL BUN 9 7-21 MG/DL Creat .69 .51-1.17 MG/DL V-abdmcu-t-benzoquinone imine (NAPQI) is a metabolite of acetaminophen, [...] 286 280-300 MOSM/KG CBC w\ Auto Diff 11970 Reviewed date:04/22/2022 09:37:08 PM Interpretation: Performing Lab: [...] 42.0-75.0 % Lymph Auto% 22.8 20.0-51.0 % [place] Auto% 6.9 1.7-9.3 % Eos Auto% 1.9 .0-6.0 % Baso Auto% 0.5 0.0-1.0 % Imm Gran% .1 .0-.4 % Neutro Abs 5.43 .80-7.70 Lymph Abs 1.82 .10-4.10 [place] Abs .55 .20-1.00 Eos Abs .15 .00-.40 Baso Abs .04 .00-.10 Imm Gran Abs .01 .00-.10 NRBC# .00 .00-.20 X10'3 NRBC% .00 .00-.20 /100 int act WBC's Thyroxine (T4) 82465 Reviewed date:04/22/2022 09:37:20 PM Interpretation: Performing Lab: Notes/Report: Diagnosis Description: Encounter for screening for other suspected endocrine disorder ThyroxinT4 10.4 4.8-13.9 Lipid Panel Reflex DLDL 8006 1, 48020 Reviewed date:04/22/2022 09:37:36 PM Interpretation: Performing Lab: [...] See DLDL result. Thyroid Stimulating Hormone (TSH) 33630 Reviewed date:04/22/2022 09:37:47 PM Interpretation: Performing Lab: Notes/Report: Diagnosis Description: Encounter for screening for other suspected endocrine disorder TSH 1.372 .358-3.740 MlU/ML MRI Abdomen MRCP w/o Cont-74 181 Reviewed date:05/20/2022 12:07:34 PM Interpretation: Performing Lab: Notes/Report: See Below For Report MRI Abdomen MRCP w/o Cont Echo Complete [id number] Reviewed date:09/20/2022 08:42:49 AM Interpretation: Performing Lab: Notes/Report: [id number]&org=iSite Holter 7 day-[id number],30590 Reviewed date:08/05/2022 05:06:46 PM Interpretation: Performing Lab: Notes/Report: Holter 7 day-63432,78126 Reviewed date:08/05/2022 05:06:46 PM Interpretation: Performing Lab: Notes/Report: Holter 7 day-[id number] Reviewed date:08/05/2022 05:06:46 PM Interpretation: Performing Lab: Notes/Report: Schedule Confirmation Reviewed date:08/20/2022 10:19:54 AM Interpretation: Performing Lab: Notes/Report: CT Cardiac Scoring Diagnostic Schedule Confirmation Reviewed date:10/09/2022 08:03:18 AM Interpretation: Performing Lab: Notes/Report: CT Cardiac Scoring Diagnostic Echo Complete [id number] Reviewed date:10/22/2022 07:59:52 AM Interpretation: Performing Lab: Notes/Report: Cardiopulmonary Services Name: ZHANE DENISE Study Date: 09/16/2022 : 1960 Patient Location: [facility] Age: 62 yrs Gender: Female HR: 92 [...] lux disease without esophagitis (K21.9) Referral Organization [facility] Referring Provider First Name Mirta Referring Provider [...] (shortness of br eath) (R06.02) Referral Organization [facility] Referring Provider First Name Mirta Referring Provider Last Name Carballo Referring Provider Speciality Nurse Salma birch Referred Organization [facility] Referred Provider Clifford Deleon Referred Address [address] [place] [address],[place],[address], Referred Provider Specialty Cardiology Referral Priority Routine Reason tachycardia Diagnosis 1 Tachycardia (R00.0) Diagnosis 2 Primary hypertension (I10) Diagnosis 3 Nicotine dependence, cigarettes, uncomplicated (F17.210) Referral Organization [facility] Referring Provider First Name Mirta Referring Provider Last Name Carballo Referring Provider Speciality Nurse Salma birch [facility] Referred Provider Specialty Cardiology General Notes Elizabet Oreilly 04/07 10:21:47 AM >Per chart patient has apt on 05/29/[address] Deleon at [facility] Elizabet Oreilly 08/09/2022 04:31:40 PM >See referral note Referral Priority Routine Referral Appointment Date 08/05/2022 Reason Eval and Treat Diagnosis 1 Atrophic gastritis w ithout hemorrhage (K29.40) Diagnosis 2 Gastroesophageal ref lux disease without esophagitis (K21.9) Diagnosis 3 Sphincter of Oddi dy sfunction (K83.4) Referral Organization [facility] Referring Provider First Name Tony medley Referring Provider Last Name Phil Referring Provider Speciality Internal M edicine Referred Provider Dick Gutierrez Referred Provider Specialty Internal Med icine Referral Priority Routine MEDICATIONS Medication SIG (Take, Route, Frequency, Duration) Notes Start Date End Date Status ALPRAZolam 0.5 MG 1/2 to 1 tab Orally 4 times a day prn anxiety replaces lorazepam for 30 days 11/29/2022 Active amLODIPine Besylate 5 MG Take 1 tablet b y mouth once daily for 30 Active Metoprolol Tartrate 50 MG 2 tablets with food Orally Twice a day for 90 days Active Reglan 10 MG 1 tablet Orally Once Active hydrOXYzine HCl 50 MG 1/2 to 1 tab Orall y every 6 hrs prn anxiety for 30 day(s) Not-Taking Ondansetron 4 MG 1 tab Oral q 4 hours prn nausea for 30 days Not-Acostayashira g LORazepam 1 MG Oral for 30 Days Not-Taking Metoclopramide HCl 10 MG Oral for 30 Days Not-Taking Morphine Sulfate 30 MG 1 tablet as neede d Orally every 4 hrs Active traZODone HCl 100 MG TAKE 1 TO 2 TABLETS BY MOUTH ONCE DAILY NEEDED FOR SLEEP Oral Once a day for 30 days Not-Takin g Pantoprazole Sodium 20 MG 1 tablet Orall y Once a day Active levoFLOXacin 500 MG 1 tab po q d x 7 d Orally Once a day for 7 days Not-Taking Promethegan 25 MG _insert ONE SUPPOSITORY rectally EVERY 6 HOURS NEEDED FOR NAUSEA AND VOMITING Diagnosis Unavailable Rectal for 3 Not-Taking Promethazine HCl 25 MG TAKE 1 TABLET BY MOUTH EVERY 4 TO 6 HOURS NEEDED FOR NAUSEA for 7 Not-Taking SOCIAL HISTORY Tobacco Use: Social History Observation Description Date Details (start date - stop date) Current Smoker NA - NA Sex Assigned At : Social History Observation Description Sex Assigned At Unknown Tobacco Use/Smoking Question Answer Notes Are you a current smoker How often do you smoke cigarettes? every day How many cigarettes a day do you smoke? 11-20 Are you interested in quitting? Ready to quit Alcohol Screen (Audit-C) Question Answer Notes Did you have a drink contain ing alcohol in the past year? Yes How often did you have a dri nk containing alcohol in the past year? Monthly or less (1 point) Points 1 Interpretation Negative PHQ-9 Question Answer Notes Little [...] Notes Problem Mixed hyperlipidemia (E78.2) Active confirmed 940535406 Problem Nicotine dependence, cigarettes, uncomplicated (F17.210) Active confirmed 66147338 Problem Nausea (R11.0) Active confirmed 1960809 07 Problem Early satiety (R68.81) Active confirmed 495167850 Problem Gastroesophageal reflux disease without esophagitis (K21.9) Active confirmed 079409652 Problem Anxiety (F41.9) Active confirmed 195226 02 Problem SOB (shortness of breath) (R06.02) Active confirmed 444042734 Problem Hypertension, unspecified type (I10) Active confirmed 59027752 Problem Hyponatremia (E87.1) Active confirmed 8 3266785 Problem History of breast cancer (Z85.3) Active confirmed 047294726 Problem Thyroid disorder screen (Z13.29) Active confirmed 076035716 Problem Acute gastritis without hemorrhage, unspecified gastritis type (K29.00) Active confirmed 34966250 Problem Generalized postprandial abdominal pain (R10.84) Active confirmed 982684392 Problem COVID-19 (U07.1) Active confirmed 75226 9006 Problem 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) Active confirmed 585052678 Problem Atrophic gastritis without hemorrhage (K29.40) Active confirmed 57292011 Problem 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) Active confirmed 671015612 Problem Primary hypertension (I10) Active confirmed 97935950 Problem Heart rate problem (R00.9) Active confirmed 126521500 VITAL SIGNS Heart Rate 73 /min 12/12/2022 Temperature 97.9 degrees Fahrenheit 12/12/2022 Respiratory Rate 18 /min 12/12/2022 Height-cm 165.1 cm 12/12/2022 Oximetry 96 % 12/12/2022 Blood pressure diastolic 70 mm Hg 12/12/2022 Weight-kg 66.13 kg 12/12/2022 Height 65 in 12/12/2022 Blood pressure systolic 120 mm Hg 12/12/2022 Weight 145.8 lbs 12/12/2022 BMI 24.26 kg/m2 12/12/2022 Encounters Encounter Location Date Provider Diagnosis [address] [place] [address] 01/22/2022 [facility] [address] [place] [address] 03/[facility]22 [facility] [place] [address] [place] [address] 03/08/2022 [facility] [address] [place] [address] 03/22/2022 [facility] [place] [address] [place] [address] 03/28/2022 [facility] Gastroesophageal reflux disease without esophagitis K21.9 ; Acute gastritis without hemorrhage, unspecified gastritis type K29.00 and Nausea R11.0 [facility] [address] [place] [address] 04/09/2022 [facility] [address] [facility] [place] [address] 04/16/2022 [facility] [address] [place] [address] 04/17/2022 [facility] [address] [place] [address] 04/19/2022 [facility] [address] [facility] [address] [place] [address] 04/22/2022 [facility] [address] [facility] [place] [address] 04/22/2022 [facility] [address] [place] [address] 04/23/2022 [facility] [address] [place] [address] 07/16/2022 [facility] [address] [place] [address], [place] [address] 08/12/[address] [facility] [place] [address] [place] [address] 08/15/[address] [place] [address] 08/27/2022 Clifford Rodriguezt [facility] [address] [place] [address], [place] [address] 10/14/2022 Clifford Cordovauitt [facility] [address] [place] [address] 11/29/2022 [facility] Nausea R11.0 [facility] [address] [place] [address] 11/22/2022 [facility] Bronchitis J40 ; Wheezes R06.2 ; Primary hypertension I10 and Nicotine dependence, cigarettes, uncomplicated F17.210 [facility] [address] [facility] [place] [address] 04/30/2022 Peewee Villarreal [address] [place] [address] 05/07/2022 [facility] [address] [facility] [place] [address] 05/07/2022 Peewee Villarreal [address] [place] [address] 05/13/2022 [facility] [address] [facility] [place] [address] 05/21/2022 Peewee Villarreal Gastroesophageal reflux disease without esophagitis K21.9 and Sphincter of Oddi dysfunction K83.4 [facility] [address] [place] [address], [place] [address] 05/29/2022 Clifford Cordovauitt [facility] [address] [place] [address], [place] [address] 08/05/2022 Clifford Cordovauitt SOB (shortness of breath) R06.02 ; Dyspnea on exertion R06.00 ; Palpitations R00.2 ; Cigarette nicotine dependence, uncomplicated F17.210 and Family history of coronary arteriosclerosis Z82.49 [facility] [address] [facility] [place] [address] 04/09/2022 Peewee Villarreal Generalized postprandial abdominal pain R10.84 and Early satiety R68.81 [facility] [address] [place] [address] 12/12/2022 Feliciano Dwyer Nausea and vomiting, unspecified vomiting type R11.2 and Depression, unspecified depression type F32.A [facility] [address] [place] [address] 10/31/2022 Feliciano Dwyer [facility] [address] [place] [address] 10/21/2022 [facility] [address] [place] [address] 04/16/2022 Mirta Carballo Nausea R11.0 ; Anxie ty F41.9 and Primary hypertension I10 [facility] [address] [place] [address] 04/22/2022 Mirta Carballo Anxiety F41.9 ; Depression, unspecified depression type F32.A ; Primary hypertension I10 ; Tachycardia R00.0 ; Nicotine dependence, cigarettes, uncomplicated F17.210 ; Mixed hyperlipidemia E78.2 ; Hyponatremia E87.1 and Thyroid disorder screen Z13.29 [facility] [address] [place] [address] 09/16/2022 [facility] [address] [place] [address], [place] [address] 08/22/2022 [facility] [address] [place] [address], [place] [address] 08/27/2022 [facility] [address] [place] [address], [place] [address] 08/12/2022 [facility] Palpitations R00.2 ASSESSMENTS Encounter Date Diagnosis [...] dose pack 11/29/2022 Nausea (ICD-10 - R11.0) 12/12/2022 Depression, unspecified depression type (ICD-10 - F32.A) 12/12/2022 Nausea and vomiting, unspecified vomiting type (ICD-10 - R11.2) 11/22/2022 Primary hypertension (ICD-10 - I10) resume [...] box and take this to the nearest [employer] dropbox. We will contact them with results [...] Other Venipuncture performed by BLADIMIR Brower to [facility], 22 guage needle, not enough blood obtained, Pt tolerated well, bleeding controlled with light dressing. Lab sent to [facility] via chemistry tutor. Venipuncture: Performed by: Lemuel GARRISON Attempts: x1 Location: [facility] Needle gauge: 22G Patient tolerated well. 08/05/2022 [...] Test Name Order Date Electrocardiogram (EKG) - [id number] 08/06/[address] Cardiac Scoring Diagnostic-[id number] 04/2022 Next Appt Details Provider Name:Mirta Carballo, 12/31/2022 02:00:00 PM, [address], [place], [address], Insurance Providers Payer Name Payer Address Payer Phone Subscriber Number Group Number Insured Name Patient Relationship to Insured Coverage Start Date Coverage End Date [employer] [address] [facility] [phone] [id number] Zhane Denise Self - patient is the insured MEDICATIONS ADMINISTERED Medication Instructions Date of Administration Dosage Notes DEPO-Medrol 10/19/2021 40 mg [facility] 38430-340 3-1 pt tolerated well/instructed to wait 20 min Dexamethasone 10/19/2021 4 mg [facility] 06932-3 573-1 pt tolerated well/instructed pt to wait 20 min MEDICAL (GENERAL) HISTORY Medical History History ICD Code breast cancer right heartburn High Blood Pressure COVID VACCINATION X2 COVID SEPTEMBER 2021 LONG COVID Surgical History Surgery Date(Month/Year) cholecystectomy dilation and curettage breast biopsy left 2020 breast reconstruction Hospitalization History Reason Date(Month/Year) see surgical history [facility] 07/2022 childbirth
[2022-12-16] MEDS: sodium chloride 0.9% 1,000 ML 999 ML IV (15:39)
[2022-12-16 17:08] VITALS: BP 158/90; PULSE 75; RESP 16; TEMP 37.1; O2SAT 96
== END 2023-01-04 23:59 | disposition home or self-care (01) ==
PROVIDERS: PCP Nurse Practitioner Family; Visit Provider Internal Medicine Medical Oncology
DX: R10.9 Unspecified abdominal pain (principal); R11.0 Nausea; Z85.3 Personal history of malignant neoplasm of breast
CPT/HCPCS: 96365; J1100; J7030

== ENCOUNTER 2023-01-17 11:38 | Outpatient (CLI) | payer OTHER, SELFPAY ==
--- NOTE | 2023-01-17 13:00 | CTR_ITS ---
PROCEDURE INFORMATION: Exam: CT Abdomen And Pelvis With Contrast Exam date and time: 01/17/2023 1:19 PM Age: 62 years old Clinical indication: Constipation and nausea; Additional info: Nausea, breast cancer TECHNIQUE: Imaging protocol: Computed tomography of the abdomen and pelvis with contrast. Radiation optimization: All CT scans at this facility use at least one of these dose optimization techniques: automated exposure control; mA and/or kV adjustment per patient size (includes targeted exams where dose is matched to clinical indication); or iterative reconstruction. Contrast material: OMNI 350; Contrast volume: 100 ml; Contrast route: INTRAVENOUS (IV); REPORTING DATA: Count of CT and Cardiac NM exams in prior 12 months: This patient has received 0 known CTs and 0 known cardiac nuclear medicine studies in the 12 months prior to the current study. COMPARISON: CT abdomen pelvis wo con [id number] 09/24/2021 2:00 PM RADIATION DOSE METRICS: Total DLP (mGy-cm): 294.09 FINDINGS: Lungs: There is some subsegmental atelectasis at the lung bases. Liver: There is no focal abnormality within the liver. Gallbladder and bile ducts: There has been a cholecystectomy. There is mild intrahepatic biliary tract dilatation. Common bile duct is dilated to 10 mm which is not unusual post cholecystectomy. The biliary tract dilatation is similar to 09/24/2021. Pancreas: The pancreas is normal. Spleen: The spleen is normal. Adrenal glands: The adrenal glands are normal. Kidneys and ureters: The kidneys are normal. There is no evidence of hydronephrosis. There is no evidence of renal or ureteral calcifications. Stomach and bowel: Unremarkable. No obstruction. No mucosal thickening. Appendix: Not identified Intraperitoneal space: Unremarkable. No free air. No significant fluid collection. Vasculature: The aorta demonstrates moderate atherosclerotic calcification. There is no evidence of an abdominal aortic aneurysm. Lymph nodes: There is no evidence of lymphadenopathy. Urinary bladder: Unremarkable as visualized. Reproductive: Unremarkable as visualized. Bones/joints: The lumbar spine demonstrates mild degenerative changes at multiple levels. There is mild scoliosis of the lumbar spine. Soft tissues: Findings of right mastectomy and tram flap reconstruction are partly imaged on this exam. There is some surgical clips in the region of the right inguinal canal unchanged from previous, possibly related to hernia repair. CT/CT abdomen pelvis w con* [id number] IMPRESSION: 1. Post cholecystectomy changes and mild biliary tract dilatation not significantly changed. 2. No acute findings in the abdomen or pelvis.
[2023-01-17] MEDS: iohexol 350 mg/mL 500 mL Btl (per mL) IV (13:24)
[2023-01-17] MEDS: iohexol 350 mg/mL 500 mL Btl (per mL) PO (13:25)
== END 2023-01-17 11:39 | disposition home or self-care (01) ==
LOC: RAD 11:38
PROVIDERS: PCP Nurse Practitioner Family; Visit Provider Internal Medicine Medical Oncology
DX: R11.0 Nausea (principal); Z85.3 Personal history of malignant neoplasm of breast; K59.00 Constipation, unspecified; Z90.49 Acquired absence of other specified parts of digestive tract
CPT/HCPCS: 74177; Q9967

== ENCOUNTER 2023-01-17 20:35 | Emergency (ER) | payer OTHER, SELFPAY ==
[2023-01-17 20:40] VITALS: BP 190/110; PULSE 82; RESP 17; TEMP 36.4; O2SAT 98; BMI 26.6
[2023-01-17] MEDS: ondansetron 2 mg/ML SDV 2 mL 4 MG IVP (20:55)
[2023-01-17 20:56] VITALS: RESP 16
[2023-01-17] MEDS: HYDROmorphone 1 mg/mL INJ 1 mL IVP (20:56)
--- NOTE | 2023-01-17 20:58 | ED_ITS ---
HPI - Female Genitourinary General: Chief complaint: Urogenital-Female Stated complaint: vaginal pain, body aches Time Seen by Provider: 01/17/23 20:45 Source: patient Mode of arrival: ambulatory Limitations: no limitations History of Present Illness: 62-year-old female who states that she has had chronic abdominal pain for over the last year she states she was treated for H. pylori she sees Dr. Boykin as well she states that over the last week she has had increasing pain especially pelvic pain some burning sensation she had a CT scan today at 1 PM that was normal was outpatient. States that she is continue to have pain she rates a 9 out of 10 denies any fevers denies any diarrhea Associated symptoms: Reports abdominal pain; Deny headache(s) or nausea Review of Systems Const: Denies: fever(s) or chills ENMT: Denies: throat pain or dental pain Card: Denies: chest pain Resp: Denies: dyspnea GI: Reports: abdominal pain; Denies: nausea, vomiting or diarrhea : Reports: pelvic pain; Denies: dysuria Musc: Denies: neck pain or back pain Skin/Breast: Denies: rash Neuro: Denies: headache(s) PFSH ED PFSH: Medical History Anxiety Brachial plexus neuropathy Breast cancer, right H. pylori infection History of tachycardia HTN (hypertension), benign Post-mastectomy pain Surgical History H/O breast reconstruction H/O total mastectomy of right breast History of cholecystectomy History of dental surgery dental implants on top. S/P TRAM (transverse rectus abdominis muscle) flap breast reconstruction Status post left breast lumpectomy (03/28/20) Family History Grandfather Stroke Cancer CAD (coronary artery disease) Mother Cancer Grandmother CAD (coronary artery disease) Stroke Father CAD (coronary artery disease) Clotting disorder Hyperlipidemia Other Hypertension Suicide Denies family history of Diabetes Dementia Psychiatric illness Chronic kidney disease (CKD) Anesthesia complication Bleeding disorder Lung disease Social History Smoking and tobacco/nicotine status: current every day tobacco/nicotine user cigarettes Packs smoked per day: 0.5 Alcohol intake: never Substance/Drug Use: never Physical Exam Const: COMMON NORMALS: no acute distress, patient oriented x3 and healthy appearing HENMT: COMMON NORMALS: normocephalic and atraumatic HEAD & SCALP: normocephalic and atraumatic Eye: COMMON NORMALS: conjunctivae normal CONJUNCTIVA: Yes conjunctivae normal Neck/C-Spine: COMMON NORMALS: supple Chest: COMMONS NORMALS: normal inspection of the chest Resp: COMMON NORMALS: normal respiratory effort Cardio: COMMON NORMALS: regular rate, regular rhythm and No murmurs present (Cardio) RATE: regular rate RHYTHM: regular rhythm GI: COMMON NORMALS: Normal to inspection, nondistended, normoactive bowel sounds present, Soft to palpation, non-tender and no masses PALPATION: Yes Soft to palpation Extremity: COMMON NORMALS: normal to inspection and full ROM Neuro: COMMON NORMALS: patient oriented x3, moves all extremities and no focal motor deficits Psych: COMMON NORMALS: mental status grossly normal, Normal thought process present and cooperative THOUGHT PROCESS: Normal thought process present Skin: COMMON NORMALS: no rashes or lesions noted and no wounds GENERAL SKIN EXAM: no rashes or lesions noted Course Vital Signs: Vital signs: Vital Signs Temperature 97.6 F 01/17/23 20:40 Pulse Rate 68 01/17/23 21:42 Respiratory Rate 16 01/17/23 21:42 Blood Pressure 137/76 01/17/23 21:42 Pulse Oximetry 92 01/17/23 21:42 Oxygen Delivery Me thod Room Air 01/17/23 20:40 MDM - Female Medical Decision Making Patient presents here with pelvic pain she had a CT today was negative blood work here is all normal her pain is improving currently she is stable for discharge she is to follow-up with PCP and return if worsening. Medical Records I reviewed the patient's medical records. Lab Data I reviewed the patient's lab results. 01/17/23 20:55 01/17/23 20:55 Laboratory Results WBC 13.84 10^3/uL (3.29-11.43) H 01/17/23 20:55 RBC 5.10 10^6/uL (3.85-5.65) 01/17/23 20:55 Hgb 15.60 g/dL (11.27-16.99) 01/17/23 20:55 Hct 47.5 % (36-47) H 01/17/23 20:55 MCV 93.1 fl (85-98) 01/17/23 20:55 MCH 30.6 pg (27-33) 01/17/23 20:55 MCHC 32.8 g/dL (30-55) 01/17/23 20:55 RDW 13.5 % (12.1-15.1) 01/17/23 20:55 Plt Count 446 10^3/cmm (157-399) H 01/17/23 20:55 MPV 9.4 fL (7.4-10.4) 01/17/23 20:55 Neut % (Auto) 56.1 % 01/17/23 20:55 Lymph % (Auto) 34.1 % 01/17/23 20:55 [place] % (Auto) 7.0 % 01/17/23 20:55 Eos % (Auto) 1.7 % 01/17/23 20:55 Baso % (Auto) 0.7 % 01/17/23 20:55 Neut # (Auto) 7.76 10^3/uL (1.8-7.7) H 01/17/23 20:55 Lymph # (Auto) 4.7 10^3/uL (0.8-4.8) 01/17/23 20:55 [place] # (Auto) 1.0 10^3/uL (0.2-0.9) H 01/17/23 20:55 Eos # (Auto) 0.2 10^3/uL (0.0-0.8) 01/17/23 20:55 Baso # (Auto) 0.1 10^3/uL (0.0-0.1) 01/17/23 20:55 Nucleated RBC % (auto) 0 % 01/17/23 20:55 Nucleated RBCs # 0.0 /100WBC 01/17/23 20:55 Sodium 138 mmol/L (136-145) 01/17/23 20:55 Potassium 3.1 mmol/L (3.5-5.1) L 01/17/23 20:55 Chloride 98 mmol/L (98-107) 01/17/23 20:55 Carbon Dioxide 28 mmol/L (22-29) 01/17/23 20:55 Anion Gap 15.1 (5-19) 01/17/23 20:55 BUN 8 mg/dL (8-23) 01/17/23 20:55 Creatinine 0.9 mg/dL (0.5-0.9) 01/17/23 20:55 GFR Calculation 63.7 mL/min (90-130) L 01/17/23 20:55 Glucose 162 mg/dL (65-115) H 01/17/23 20:55 Calculated Osmolality 288 mOsm/kg (285-295) 01/17/23 20:55 Calcium 9.6 mg/dL (8.5-10.5) 01/17/23 20:55 Total Bilirubin 0.4 mg/dL (0.15-1.2) 01/17/23 20:55 AST 8 U/L (0-32) 01/17/23 20:55 ALT < 5 U/L (0-33) 01/17/23 20:55 Alkaline Phosphatase 90 U/L (35-105) 01/17/23 20:55 Total Protein 7.5 g/dL (6.6-8.7) 01/17/23 20:55 Albumin 4.3 g/dL (3.5-5.2) 01/17/23 20:55 Globulin 3.2 g/dL (1.3-4.6) 01/17/23 20:55 Lipase 24 U/L (13-60) 01/17/23 20:55 Urine Color Yellow (Yellow) 01/17/23 21:07 Urine Appearance Clear (CLEAR) 01/17/23 21:07 Urine pH 7 (5-7) 01/17/23 21:07 Ur Specific [place] 1.005 (1.005-1.030) 01/17/23 21:07 Urine Protein Neg (Negative) 01/17/23 21:07 Urine Glucose (UA) Norm (Normal) 01/17/23 21:07 Urine Ketones Negative (Negative) 01/17/23 21:07 Urine Blood Neg (Negative) 01/17/23 21:07 Urine Nitrate Negative (Negative) 01/17/23 21:07 Urine Bilirubin Neg (Negative) 01/17/23 21:07 Urine Urobilinogen Neg mg/dL (Negative) 01/17/23 21:07 Ur Leukocyte Esterase Negative (Negative) 01/17/23 21:07 No radiology studies performed this visit Discharge Plan Discharge Patient Disposition: Home Clinical Impression: Abdominal pain Condition: Stable Prescriptions: New dicyclomine 20 mg tablet 20 mg PO TID PRN (Reason: abdominal pain) Qty: 20 0RF No Action amlodipine 5 mg tablet 5 mg PO ONCE alprazolam 0.5 mg tablet 0.5 mg PO TID promethazine 25 mg tablet 25 mg PO Q6H PRN (Reason: nausea and vomiting) Qty: 30 1RF Rx Instructions: Watch for sedation promethazine 25 mg suppository [address] Q6H PRN (Reason: nausea and vomiting) Qty: 12 3RF sertraline 50 mg tablet 50 mg PO DAILY Qty: 90 2RF ondansetron HCl 8 mg tablet 8 mg PO Q6H PRN (Reason: nausea and vomiting) Qty: 120 0RF metoclopramide HCl 10 mg tablet 10 mg PO QID PRN (Reason: nausea and vomiting) Qty: 120 3RF morphine 30 mg tablet 30 mg PO Q4H PRN (Reason: pain) 30 Days Qty: 150 0RF Hold Instructions: Order Change lactulose 20 gram/30 mL solution 20 g PO .COMPLEX Qty: 3000 0RF Rx Instructions: 30 mL PO every 2 hours until bowel movement, then repeat if needed if no additional BM in 48-72 hours metoprolol tartrate 50 mg Tablet 100 mg PO BID Protonix 40 mg tablet,delayed release (DR/EC) 40 mg PO BID Qty: 60 0RF Discharge Orders: Discharge ED (Routine); Ordered 01/17/23 Ordered By: Pam Waller Referrals: Mirta Carballo APN [Primary Care Provider] - 1-3 days Discharge Diet: Advance as tolerated Discharge Activity: Resume usual activity Patient Instructions: Abdominal Pain (ED) Coding Level of Care Code ED Electronic Warfare Linguist for Isaias Cee
[2023-01-17 21:00] LABS: Basophils # 0.1 10^3/uL (0.0-0.1); Basophils % 0.7 %; Eosinophils # 0.2 10^3/uL (0.0-0.8); Eosinophils % 1.7 %; Hematocrit 47.5 % (36-47); Lymphocytes # 4.7 10^3/uL (0.8-4.8); Lymphocytes % 34.1 %; Mean Corpuscular HGB Conc 32.8 g/dL (30-55); Mean Corpuscular Hemoglobin 30.6 pg (27-33); Mean Corpuscular Volume 93.1 fl (85-98); Mean Platelet Volume 9.4 fL (7.4-10.4); Neutrophils # 7.76 10^3/uL (1.8-7.7); Neutrophils % 56.1 %; Nucleated Red Blood Cells % 0 %; Platelet Count 446 10^3/cmm (157-399); Red Cell Distribution Width 13.5 % (12.1-15.1); White Blood Count 13.84 10^3/uL (3.29-11.43)
[2023-01-17 21:11] VITALS: BP 130/71; PULSE 72; RESP 16; O2SAT 90
[2023-01-17 21:16] LABS: Add Urine Microscopic? NO; Charge for UA Resulting for Rev
[2023-01-17] MEDS: LORazepam 2 mg/mL INJ 1 mL 1 MG IVP (21:16)
[2023-01-17 21:17] LABS: Alanine Aminotransferase < 5 U/L (0-33); Albumin Level 4.3 g/dL (3.5-5.2); Alkaline Phosphatase 90 U/L (35-105); Anion Gap 15.1 (5-19); Aspartate Amino Transferase 8 U/L (0-32); Blood Urea Nitrogen 8 mg/dL (8-23); Calcium 9.6 mg/dL (8.5-10.5); Carbon Dioxide 28 mmol/L (22-29); Chloride 98 mmol/L (98-107); Globulin 3.2 g/dL (1.3-4.6); Glomerular Filtration Rate 63.7 mL/min (90-130); Glucose 162 mg/dL (65-115); Osmolality Calculated 288 mOsm/kg (285-295); Potassium 3.1 mmol/L (3.5-5.1); Sodium 138 mmol/L (136-145); Total Bilirubin 0.4 mg/dL (0.15-1.2); Total Protein 7.5 g/dL (6.6-8.7)
[2023-01-17 21:23] LABS: Bilirubin Urine Neg (Negative); Blood Urine Neg (Negative); Glucose Urine UA Norm (Normal); Ketones Urine Negative (Negative); Leukocyte Esterase Urine Negative (Negative); Nitrate Urine Negative (Negative); Protein Urine Neg (Negative); Specific Gravity, Urine 1.005 (1.005-1.030); Urine Appearance Clear (CLEAR); Urine Color Yellow (Yellow); Urobilinogen Urine Neg (Negative); pH Urine 7 (5-7)
[2023-01-17 21:24] LABS: Lipase 24 U/L (13-60)
[2023-01-17 21:41] VITALS: RESP 16
[2023-01-17] MEDS: morphine 4 mg/mL SDV 1 mL IVP (21:41)
[2023-01-17 21:42] VITALS: BP 137/76; PULSE 68; RESP 16; O2SAT 92
[2023-01-17] MEDS: metoclopramide 5 mg/mL SDV 2 mL IVP (21:53)
[2023-01-17] MEDS: diphenhydrAMINE 50 mg/mL SDV 1mL 25 MG IVP (21:54)
== END 2023-01-17 22:07 | disposition home or self-care (01) ==
PROVIDERS: Emergency Provider Emergency Medicine; PCP Nurse Practitioner Family
DX: R10.2 Pelvic and perineal pain (principal); I10 Essential (primary) hypertension; Z85.3 Personal history of malignant neoplasm of breast; F17.210 Nicotine dependence, cigarettes, uncomplicated
CPT/HCPCS: 80053; 81003; 83690; 85025; 96374; 96375; 99284; J1170; J1200; J2060; J2270; J2405; J2765

== ENCOUNTER 2023-01-18 06:11 | Emergency (ER) | payer OTHER, SELFPAY ==
[2023-01-18 06:16] VITALS: BP 170/85; PULSE 96; RESP 16; TEMP 36.5; O2SAT 93; BMI 22.4
--- NOTE | 2023-01-18 06:25 | ED_ITS ---
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 Yesterday she had a CT of the abdomen pelvis which was unremarkable. She was seen last night in the emergency room no significant findings were noted she was discharged home she returns today continuing to complain the lower abdominal pain cramping. She denies dysuria urgency or frequency no vaginal discharge. No fevers sweats or chills this has been a recurrent issue for her unfortunately. Her oncology notes reviewed her initial diagnosis of breast cancer was in 1995 she has not been on chemotherapy for some time she does have some chronic long-term side effects from having taken the chemo. She ate last year was treated for an H. pylori infection. She is concerned that the H. pylori is causing problems in her lower abdomen and pelvic region particularly vaginal area. Onset (ago): week(s) Location: abdomen Severity: moderate Pain Consistency: constant Relieving factors: none Exacerbating factors: none Associated symptoms: Reports decreased appetite, malaise, nausea and weakness; Deny chest pain, confusion, cough, diaphoresis, dyspnea, fevers/chills, headache(s), rash, palpitations, seizures, short of breath, syncope or vomiting Treatments prior to arrival: none Review of Systems Const: Reports: malaise; Denies: fever(s), chills or diaphoresis Card: Denies: chest pain, palpitations or syncope Resp: Denies: dyspnea GI: Reports: nausea; Denies: abdominal pain or vomiting : Denies: dysuria, urinary frequency or urinary urgency Musc: Denies: neck pain or back pain Skin/Breast: Denies: rash Neuro: Denies: headache(s) or confusion PFSH ED PFSH: Medical History Anxiety Brachial plexus neuropathy Breast cancer, right H. pylori infection History of tachycardia HTN (hypertension), benign Post-mastectomy pain Surgical History H/O breast reconstruction H/O total mastectomy of right breast History of cholecystectomy History of dental surgery dental implants on top. S/P TRAM (transverse rectus abdominis muscle) flap breast reconstruction Status post left breast lumpectomy (03/28/20) Family History Grandfather Stroke Cancer CAD (coronary artery disease) Mother Cancer Grandmother CAD (coronary artery disease) Stroke Father CAD (coronary artery disease) Clotting disorder Hyperlipidemia Other Hypertension Suicide Denies family history of Diabetes Dementia Psychiatric illness Chronic kidney disease (CKD) Anesthesia complication Bleeding disorder Lung disease Social History Smoking and tobacco/nicotine status: current every day tobacco/nicotine user cigarettes Packs smoked per day: 0.5 Alcohol intake: never Substance/Drug Use: never Physical Exam Const: GENERAL APPEARANCE: cooperative ORIENTATION/CONSCIOUSNESS: Yes awake, Yes oriented to person, Yes oriented to place and Yes oriented to time HENMT: COMMON NORMALS: normocephalic, atraumatic and hearing grossly normal bilaterally HEAD & SCALP: normocephalic and atraumatic Resp: COMMON NORMALS: normal respiratory effort, No retractions, No use of accessory muscles and clear to auscultation bilaterally AUSCULTATION: clear to auscultation bilaterally Cardio: COMMON NORMALS: regular rate, regular rhythm and No murmurs present (Cardio) RATE: regular rate RHYTHM: regular rhythm GI: COMMON NORMALS: Soft to palpation and No hepatosplenomegaly present AUSCULTATION: Yes normoactive bowel sounds PALPATION: Yes Soft to palpation, No Tenderness to palpation present (GI), No Guarding due to palpation present (GI) and Yes No hepatosplenomegaly present Extremity: COMMON NORMALS: normal to inspection, capillary refill normal, no clubbing, cyanosis or edema, no calf tenderness and no pedal edema Neuro: SENSORIUM/ORIENTATION: Yes oriented to person, Yes oriented to place and Yes oriented to time Skin: COMMON NORMALS: no rashes or lesions noted GENERAL SKIN EXAM: no rashes or lesions noted Course Vital Signs: Vital signs: Vital Signs Temperature 97.7 F 01/18/23 06:16 Pulse Rate 96 01/18/23 06:16 Respiratory Rate 22 H 01/18/23 06:41 Blood Pressure 170/85 01/18/23 06:16 Pulse Oximetry 91 01/18/23 06:41 Oxygen Delivery Me thod Nasal Cannula 01/18/23 06:16 MDM - General Adult Medical Decision Making CT from recent outpatient testing reviewed no significant abnormalities exam today is generally benign improved with Dilaudid Haldol and Ativan. She does occasionally use medical marijuana some of this may be GI upset related to that which is a common occurrence. Her symptoms are improved after fluids and medications given she is concerned about something to sleep at night. We will start on Remeron 15 mg nightly and have her follow-up with Dr. Boykin's office next week. Medical Records I reviewed the patient's medical records. Lab Data I reviewed the patient's lab results. 01/18/23 06:35 01/18/23 06:35 Radiology Impressions Chest X-Ray 01/18/23 06:33 IMPRESSION: No acute findings. Laboratory Results WBC 10.99 10^3/uL (3.29-11.43) 01/18/23 06:35 RBC 5.29 10^6/uL (3.85-5.65) 01/18/23 06:35 Hgb 16.00 g/dL (11.27-16.99) 01/18/23 06:35 Hct 49.0 % (36-47) H 01/18/23 06:35 MCV 92.6 fl (85-98) 01/18/23 06:35 MCH 30.2 pg (27-33) 01/18/23 06:35 MCHC 32.7 g/dL (30-55) 01/18/23 06:35 RDW 13.5 % (12.1-15.1) 01/18/23 06:35 Plt Count 312 10^3/cmm (157-399) D 01/18/23 06:35 MPV 10.8 fL (7.4-10.4) H 01/18/23 06:35 Neut % (Auto) 53.7 % 01/18/23 06:35 Lymph % (Auto) 36.0 % 01/18/23 06:35 [place] % (Auto) 6.1 % 01/18/23 06:35 Eos % (Auto) 2.9 % 01/18/23 06:35 Baso % (Auto) 0.8 % 01/18/23 06:35 Neut # (Auto) 5.90 10^3/uL (1.8-7.7) 01/18/23 06:35 Lymph # (Auto) 4.0 10^3/uL (0.8-4.8) 01/18/23 06:35 [place] # (Auto) 0.7 10^3/uL (0.2-0.9) 01/18/23 06:35 Eos # (Auto) 0.3 10^3/uL (0.0-0.8) 01/18/23 06:35 Baso # (Auto) 0.1 10^3/uL (0.0-0.1) 01/18/23 06:35 Nucleated RBC % (auto) 0 % 01/18/23 06:35 Nucleated RBCs # 0.0 /100WBC 01/18/23 06:35 Sodium 140 mmol/L (136-145) 01/18/23 06:35 Potassium 3.7 mmol/L (3.5-5.1) 01/18/23 06:35 Chloride 99 mmol/L (98-107) 01/18/23 06:35 Carbon Dioxide 31 mmol/L (22-29) H 01/18/23 06:35 Anion Gap 13.7 (5-19) 01/18/23 06:35 BUN 8 mg/dL (8-23) 01/18/23 06:35 Creatinine 0.9 mg/dL (0.5-0.9) 01/18/23 06:35 GFR Calculation 63.7 mL/min (90-130) L 01/18/23 06:35 Glucose 120 mg/dL (65-115) H 01/18/23 06:35 Calculated Osmolality 290 mOsm/kg (285-295) 01/18/23 06:35 Calcium 10.1 mg/dL (8.5-10.5) 01/18/23 06:35 Total Bilirubin 0.6 mg/dL (0.15-1.2) 01/18/23 06:35 AST 9 U/L (0-32) 01/18/23 06:35 ALT < 5 U/L (0-33) 01/18/23 06:35 Alkaline Phosphatase 90 U/L (35-105) 01/18/23 06:35 Total Protein 7.2 g/dL (6.6-8.7) 01/18/23 06:35 Albumin 4.3 g/dL (3.5-5.2) 01/18/23 06:35 Globulin 2.9 g/dL (1.3-4.6) 01/18/23 06:35 Urine Color Yellow (Yellow) 01/18/23 06:57 Urine Appearance Clear (CLEAR) 01/18/23 06:57 Urine pH 7 (5-7) 01/18/23 06:57 Ur Specific [place] 1.005 (1.005-1.030) 01/18/23 06:57 Urine Protein Neg (Negative) 01/18/23 06:57 Urine Glucose (UA) Norm (Normal) 01/18/23 06:57 Urine Ketones Negative (Negative) 01/18/23 06:57 Urine Blood Neg (Negative) 01/18/23 06:57 Urine Nitrate Negative (Negative) 01/18/23 06:57 Urine Bilirubin Neg (Negative) 01/18/23 06:57 Urine Urobilinogen Norm mg/dL (Negative) 01/18/23 06:57 Ur Leukocyte Esterase Negative (Negative) 01/18/23 06:57 No radiology studies performed this visit Discharge Plan Discharge Patient Disposition: Home Clinical Impression: Chronic abdominal pain, Neuropathy associated with malignant neoplasm Condition: Stable Prescriptions: New Remeron 15 mg tablet 15 mg PO DAILY Qty: 15 0RF No Action amlodipine 5 mg tablet 5 mg PO ONCE alprazolam 0.5 mg tablet 0.5 mg PO TID promethazine 25 mg tablet 25 mg PO Q6H PRN (Reason: nausea and vomiting) Qty: 30 1RF Rx Instructions: Watch for sedation promethazine 25 mg suppository 25 mg [place] Q6H PRN (Reason: nausea and vomiting) Qty: 12 3RF sertraline 50 mg tablet 50 mg PO DAILY Qty: 90 2RF ondansetron HCl 8 mg tablet 8 mg PO Q6H PRN (Reason: nausea and vomiting) Qty: 120 0RF metoclopramide HCl 10 mg tablet 10 mg PO QID PRN (Reason: nausea and vomiting) Qty: 120 3RF morphine 30 mg tablet 30 mg PO Q4H PRN (Reason: pain) 30 Days Qty: 150 0RF Hold Instructions: Order Change lactulose 20 gram/30 mL solution 20 g PO .COMPLEX Qty: 3000 0RF Rx Instructions: 30 mL PO every 2 hours until bowel movement, then repeat if needed if no bisi tional BM in 48-72 hours metoprolol tartrate 50 mg Tablet 100 mg PO BID Protonix 40 mg tablet,delayed release (DR/EC) 40 mg PO BID Qty: 60 0RF dicyclomine 20 mg tablet 20 mg PO TID PRN (Reason: abdominal pain) Qty: 20 0RF Discharge Orders: Discharge ED (Routine); Ordered 01/18/23 Ordered By: Collin Maldonado Referrals: Carballo,Mirta, LOOM WINDER TENDER [Primary Care Provider] - Discharge Diet: Advance as tolerated Discharge Activity: Increase activity as tolerated Patient Instructions: Opioid Safety, Pain Management Activity Restrictions/Additional Instructions: Follow-up with Dr. Boykin's office next week. Use the mirtazapine at night to help with sleep. Continue other medications as previously prescribed. Coding Level of Care Code ED Quality Compliance Manager for Isaias Cee
--- NOTE | 2023-01-18 06:33 | XRR_ITS ---
PROCEDURE INFORMATION: Exam: XR Chest Exam date and time: 01/18/2023 6:58 AM Age: 62 years old Clinical indication: Cough and dyspnea; Additional info: Dyspnea/cough TECHNIQUE: Imaging protocol: Radiologic exam of the chest. Views: 1 view. Total images: 1 COMPARISON: CR XR chest 2V* [id number] 04/25/2016 3:36 PM FINDINGS: Lungs: Unremarkable. No consolidation. Pleural spaces: Unremarkable. No pleural effusion. No pneumothorax. Heart/Mediastinum: Unremarkable. No cardiomegaly. Bones/joints: Unremarkable. Soft tissues: Right axillary surgical clips. XR/XR chest 1V portable [id number] IMPRESSION: No acute findings.
[2023-01-18 06:41] VITALS: RESP 22; O2SAT 91
[2023-01-18] MEDS: ondansetron 2 mg/ML SDV 2 mL 4 MG IVP (06:41)
[2023-01-18] MEDS: HYDROmorphone 1 mg/mL INJ 1 mL IVP (06:41)
[2023-01-18 06:45] LABS: Basophils # 0.1 10^3/uL (0.0-0.1); Basophils % 0.8 %; Eosinophils # 0.3 10^3/uL (0.0-0.8); Eosinophils % 2.9 %; Mean Corpuscular HGB Conc 32.7 g/dL (30-55); Mean Corpuscular Hemoglobin 30.2 pg (27-33); Mean Corpuscular Volume 92.6 fl (85-98); Mean Platelet Volume 10.8 fL (7.4-10.4); Monocytes # 0.7 10^3/uL (0.2-0.9); Monocytes % 6.1 %; Neutrophils % 53.7 %; Nucleated Red Blood Cells % 0 %; Platelet Count 312 10^3/cmm (157-399); Red Blood Count 5.29 10^6/uL (3.85-5.65); Red Cell Distribution Width 13.5 % (12.1-15.1); White Blood Count 10.99 10^3/uL (3.29-11.43)
[2023-01-18] MEDS: sodium chloride 0.9% 1,000 ML 999 ML IV (06:52)
[2023-01-18] MEDS: haloperidol inj 5 mg/mL INJ 1 mL 2.5 MG IVP (06:52)
[2023-01-18 06:58] LABS: Alanine Aminotransferase < 5 U/L (0-33); Albumin Level 4.3 g/dL (3.5-5.2); Alkaline Phosphatase 90 U/L (35-105); Blood Urea Nitrogen 8 mg/dL (8-23); Calcium 10.1 mg/dL (8.5-10.5); Carbon Dioxide 31 mmol/L (22-29); Chloride 99 mmol/L (98-107); Globulin 2.9 g/dL (1.3-4.6); Glomerular Filtration Rate 63.7 mL/min (90-130); Glucose 120 mg/dL (65-115); Osmolality Calculated 290 mOsm/kg (285-295); Sodium 140 mmol/L (136-145); Total Bilirubin 0.6 mg/dL (0.15-1.2); Total Protein 7.2 g/dL (6.6-8.7)
[2023-01-18 07:04] LABS: Anion Gap 13.7 (5-19); Aspartate Amino Transferase 9 U/L (0-32); Potassium 3.7 mmol/L (3.5-5.1)
[2023-01-18 07:09] LABS: Add Urine Microscopic? NO; Charge for UA Resulting for Rev
[2023-01-18 07:23] LABS: Bilirubin Urine Neg (Negative); Blood Urine Neg (Negative); Glucose Urine UA Norm (Normal); Ketones Urine Negative (Negative); Nitrate Urine Negative (Negative); Protein Urine Neg (Negative); Specific Gravity, Urine 1.005 (1.005-1.030); Urine Appearance Clear (CLEAR); Urine Color Yellow (Yellow); pH Urine 7 (5-7)
[2023-01-18 07:24] LABS: Leukocyte Esterase Urine Negative (Negative); Urobilinogen Urine Norm (Negative)
== END 2023-01-18 08:07 | disposition home or self-care (01) ==
PROVIDERS: Emergency Provider Family Medicine; PCP Nurse Practitioner Family
DX: G89.29 Other chronic pain (principal); R10.30 Lower abdominal pain, unspecified; G62.0 Drug-induced polyneuropathy; T45.1X5A Adverse effect of antineoplastic and immunosuppressive drugs, initial encounter; Z85.3 Personal history of malignant neoplasm of breast; I10 Essential (primary) hypertension; F17.210 Nicotine dependence, cigarettes, uncomplicated
CPT/HCPCS: 71045; 80053; 81003; 85025; 96361; 96374; 96375; 99284; J1170; J1630; J2405; J7030

== ENCOUNTER 2023-02-03 14:30 | Oncology outpatient (recurring) (ONCR) | payer OTHER, SELFPAY ==
--- OUTSIDE RECORDS SUMMARY | 2023-01-08 14:44 | XMS_ITS | Patient Health Record ---
Author Name Unknown Organization [facility] Address [address] [place] [id number] Care Team Providers [facility] [place] Name Role Phone Mirta Carballo Primary Care Provider MIRNA MIRTA Unavailable Unavailable Feliciano Dwyer Unavailable [phone] Clifford Deleon Unavailable [phone] Peewee Villarreal Unavailable [phone] ALLERGIES Allergen (clinical drug ingredient) Drug/Non Drug Allergy documented on EMR Reaction Allergy Type Onset Date Status sucralfate Carafate Unknown Drug Allergy Active Penicillin Unknown Drug Allergy Active vancomycin Vancomycin Unknown Drug Allergy Activ e RESULTS Component Value Reference Range Notes MRI Abdomen MRCP w/o Cont-74 181 Reviewed date:05/20/2022 01:42:46 PM Interpretation: Performing Lab: Notes/Report: [id number]&[email or web address] NM Gastric Emptying Study-78 264 Reviewed date:04/24/2022 09:34:00 AM Interpretation: Performing Lab: Notes/Report: [id number] NM Gastric Emptying Study-78 264 Reviewed date:04/24/2022 09:33:54 AM Interpretation: Performing Lab: Notes/Report: See Below For Report NM Gastric Emptying Study Diagnosis Description: Generalized abdominal pain Comprehensive Metabolic Pane l 75968 Reviewed date:04/22/2022 09:36:53 PM Interpretation: Performing Lab: Notes/Report: Diagnosis Description: Essential (primary) hypertension Glucose Serum 130 71-110 MG/DL BUN 9 7-21 MG/DL Creat .69 .51-1.17 MG/DL G-kgopbm-g-benzoquinone imine (NAPQI) is a metabolite of acetaminophen, [...] 286 280-300 MOSM/KG CBC w\ Auto Diff 11996 Reviewed date:04/22/2022 09:37:08 PM Interpretation: Performing Lab: [...] 42.0-75.0 % Lymph Auto% 22.8 20.0-51.0 % [place]t Auto% 6.9 1.7-9.3 % Eos Auto% 1.9 .0-6.0 % Baso Auto% 0.5 0.0-1.0 % Imm Gran% .1 .0-.4 % Neutro Abs 5.43 .80-7.70 Lymph Abs 1.82 .10-4.10 [place]t Abs .55 .20-1.00 Eos Abs .15 .00-.40 Baso Abs .04 .00-.10 Imm Gran Abs .01 .00-.10 NRBC# .00 .00-.20 X10'3 NRBC% .00 .00-.20 /100 int act WBC's Thyroxine (T4) 04946 Reviewed date:04/22/2022 09:37:20 PM Interpretation: Performing Lab: Notes/Report: Diagnosis Description: Encounter for screening for other suspected endocrine disorder ThyroxinT4 10.4 4.8-13.9 Lipid Panel Reflex DLDL 8006 1, 61099 Reviewed date:04/22/2022 09:37:36 PM Interpretation: Performing Lab: [...] See DLDL result. Thyroid Stimulating Hormone (TSH) 34250 Reviewed date:04/22/2022 09:37:47 PM Interpretation: Performing Lab: Notes/Report: Diagnosis Description: Encounter for screening for other suspected endocrine disorder TSH 1.372 .358-3.740 MlU/ML MRI Abdomen MRCP w/o Cont-74 181 Reviewed date:05/20/2022 12:07:34 PM Interpretation: Performing Lab: Notes/Report: See Below For Report MRI Abdomen MRCP w/o Cont Echo Complete [id number] Reviewed date:09/20/2022 08:42:49 AM Interpretation: Performing Lab: Notes/Report: [id number]=iSite Holter 7 day-77408,11022 Reviewed date:08/05/2022 05:06:46 PM Interpretation: Performing Lab: Notes/Report: Holter 7 day-25945,47732 Reviewed date:08/05/2022 05:06:46 PM Interpretation: Performing Lab: Notes/Report: Holter 7 day-49329,68746 Reviewed date:08/05/2022 05:06:46 PM Interpretation: Performing Lab: Notes/Report: Schedule Confirmation Reviewed date:08/20/2022 10:19:54 AM Interpretation: Performing Lab: Notes/Report: CT Cardiac Scoring Diagnostic Schedule Confirmation Reviewed date:10/09/2022 08:03:18 AM Interpretation: Performing Lab: Notes/Report: CT Cardiac Scoring Diagnostic Echo Complete [id number] Reviewed date:10/22/2022 07:59:52 AM Interpretation: Performing Lab: Notes/Report: Cardiopulmonary Services Name: ZHANE DENISE Study Date: 09/16/2022 : 1960 Patient Location: [facility] Age: 62 yrs Gender: Female HR: 92 [...] lux disease without esophagitis (K21.9) Referral Organization [facility] Referring Provider First Name Mirta Referring Provider Last Name Carballo Referring Provider Speciality Nurse Prac queta Referred Provider Jermaine Lane Notes Elizabet Oreilly 06/2022 11:25:52 AM >Patient decided to see Dr. Delmer Villarreal. Referral Priority Routine Reason HIGH BP, HEART RATE ISSUES AND SOB Diagnosis 1 Heart rate problem ( R00.9) Diagnosis 2 Hypertension, unspec ified type (I10) Diagnosis 3 SOB (shortness of br eath) (R06.02) Referral Organization [facility] Referring Provider First Name Mirta Referring Provider Last Name Carballo Referring Provider Speciality Nurse Salma birch Referred Organization [facility] Referred Provider Clifford Deleon Referred Address [address] [place] [address],[place],[address], Referred Provider Specialty Cardiology Referral Priority Routine Reason tachycardia Diagnosis 1 Tachycardia (R00.0) Diagnosis 2 Primary hypertension (I10) Diagnosis 3 Nicotine dependence, cigarettes, uncomplicated (F17.210) Referral Organization [facility] Referring Provider First Name Mirta Referring Provider Last Name Carballo Referring Provider Speciality Nurse Salma birch Referred Provider [facility] Referred Provider Specialty Cardiology General Notes Elizabet Oreilly 04/07 10:21:47 AM >Per chart patient has apt on 05/29/[address] Deleon at [facility] Elizabet Oreilly 08/09/2022 04:31:40 PM >See referral note Referral Priority Routine Referral Appointment Date 08/05/2022 Reason Eval and Treat Diagnosis 1 Atrophic gastritis w ithout hemorrhage (K29.40) Diagnosis 2 Gastroesophageal ref lux disease without esophagitis (K21.9) Diagnosis 3 Sphincter of Oddi dy sfunction (K83.4) Referral Organization [facility] Referring Provider First Name Tony medley Referring Provider Last Name Phil Referring Provider Speciality Internal M edicine Referred Provider Dick Gutierrez Referred Provider Specialty Internal Med icine Referral Priority Routine MEDICATIONS Medication SIG (Take, Route, Frequency, Duration) Notes Start Date End Date Status Metoclopramide HCl 10 MG Oral for 30 Days Not-Taking Pantoprazole Sodium 40 MG Take 1 tablet by mouth twice daily for 30 Active LORazepam 1 MG Oral for 30 Days Not-Taking amLODIPine Besylate 5 MG Take 1 tablet b y mouth once daily for 30 Active ALPRAZolam 0.5 MG 1/2 to 1 tab Orally 4 times a day prn anxiety replaces lorazepam for 30 days 11/29/2022 Active levoFLOXacin 500 MG 1 tab po q d x 7 d Orally Once a day for 7 days Not-Taking traZODone HCl 100 MG TAKE 1 TO 2 TABLETS BY MOUTH ONCE DAILY NEEDED FOR SLEEP Oral Once a day for 30 days Not-Takin g Ondansetron 4 MG 1 tab Oral q 4 hours prn nausea for 30 days Not-Takin g Promethazine HCl 25 MG TAKE 1 TABLET BY MOUTH EVERY 4 TO 6 HOURS NEEDED FOR NAUSEA for 7 Active Promethegan 25 MG _insert ONE SUPPOSITORY rectally EVERY 6 HOURS NEEDED FOR NAUSEA AND VOMITING Diagnosis Unavailable Rectal for 3 Not-Taking Diphenoxylate-Atropine 2.5-0.025 MG 1 tab Orally Four times a day prn diarrhea for 30 days 01/02/2023 Active hydrOXYzine HCl 50 MG 1/2 to 1 tab Orall y every 6 hrs prn anxiety for 30 day(s) Not-Taking Reglan 10 MG 1 tablet Orally Once Active Metoprolol Tartrate 50 MG 2 tablets with food Orally Twice a day for 90 days Active Pantoprazole Sodium 20 MG 1 tablet Orall y Once a day Active Morphine Sulfate 30 MG 1 tablet as neede d Orally every 4 hrs Active SOCIAL HISTORY Tobacco Use: Social History [...] Notes Problem Mixed hyperlipidemia (E78.2) Active confirmed 037284012 Problem Nicotine dependence, cigarettes, uncomplicated (F17.210) Active confirmed 91122139 Problem Nausea (R11.0) Active confirmed 5874533 07 Problem Early satiety (R68.81) Active confirmed 233898251 Problem Gastroesophageal reflux disease without esophagitis (K21.9) Active confirmed 877103037 Problem Anxiety (F41.9) Active confirmed 256607 02 Problem SOB (shortness of breath) (R06.02) Active confirmed 791128740 Problem Hypertension, unspecified type (I10) Active confirmed 38022282 Problem Hyponatremia (E87.1) Active confirmed 8 7137284 Problem History of breast cancer (Z85.3) Active confirmed 447876213 Problem Thyroid disorder screen (Z13.29) Active confirmed 262172610 Problem Acute gastritis without hemorrhage, unspecified gastritis type (K29.00) Active confirmed 29166864 Problem Generalized postprandial abdominal pain (R10.84) Active confirmed 439598098 Problem COVID-19 (U07.1) Active confirmed 87737 9006 Problem 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) Active confirmed 905392886 Problem Atrophic gastritis without hemorrhage (K29.40) Active confirmed 91129476 Problem 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) Active confirmed 925982300 Problem Primary hypertension (I10) Active confirmed 27799169 Problem Heart rate problem (R00.9) Active confirmed 821783989 VITAL SIGNS Heart Rate 73 /min 12/12/2022 Temperature 97.9 degrees Fahrenheit 12/12/2022 Respiratory Rate 18 /min 12/12/2022 Height-cm 165.1 cm 12/12/2022 Oximetry 96 % 12/12/2022 Blood pressure diastolic 70 mm Hg 12/12/2022 Weight-kg 66.13 kg 12/12/2022 Height 65 in 12/12/2022 Blood pressure systolic 120 mm Hg 12/12/2022 Weight 145.8 lbs 12/12/2022 BMI 24.26 kg/m2 12/12/2022 Encounters Encounter Location Date Provider Diagnosis [facility] [address] [place] [address] 01/22/2022 [facility] [address] [place] [address] 03/05/2022 [facility] [address] [facility] [address] [place] [address] 03/08/2022 [facility] [address] [facility] [address] [place] [address] 03/22/2022 [facility] [address] [place] [address] 03/28/2022 [facility] Gastroesophageal reflux disease without esophagitis K21.9 ; Acute gastritis without hemorrhage, unspecified gastritis type K29.00 and Nausea R11.0 [facility] [address] [facility] [address] [place] [address] 04/09/2022 [facility] [address] [place] [address] 04/16/2022 [facility] [address] [place] [address] 04/17/2022 [facility] [address] [facility] [address] [place] [address] 04/19/2022 [facility] [address] [place] [address] 04/22/2022 [facility] [address] [place] [place] [address] 04/22/2022 [facility] [address] [facility] [address] [place] [address] 04/23/2022 [facility] [address] [place] [address] 07/16/2022 [facility] [address] [place] [address] 08/12/2022 Clifford Chi [facility] [address] [place] [address] 08/15/2022 [facility] [address] [place] [address] 08/27/[address] [facility] [address] [place] [address] 10/14/2022 Clifford Chi [facility] [address] [place] [address] 11/29/2022 [facility] Nausea R11.0 [facility] [address] [place] [address] 12/18/2022 [facility] [address] [place] [address] 12/30/2022 Feliciano Dwyer Diarrhea, unspecifie d type R19.7 [facility] [address] [place] [address] 01/01/2023 [facility] [address] [place] [address] 11/22/2022 [facility] Bronchitis J40 ; Wheezes R06.2 ; Primary hypertension I10 and Nicotine dependence, cigarettes, uncomplicated F17.210 [facility] [address] [place] [address] 12/31/2022 [facility] [address] [place] [address] 04/30/2022 [facility] [address] [place] [address] 05/07/2022 [facility] [address] [place] [address] 05/07/2022 [facility] [address] [place] [address] 05/13/2022 [facility] [address] [place] [address] 05/21/2022 Peewee Villarreal Gastroesophageal reflux disease without esophagitis K21.9 and Sphincter of Oddi dysfunction K83.4 [facility] [address] [place] [address], [place] [address] 05/29/2022 Clifford Deleon [facility] [address] [place] [address], [place] [address] 08/05/2022 Clifford Deleon SOB (shortness of breath) R06.02 ; Dyspnea on exertion R06.00 ; Palpitations R00.2 ; Cigarette nicotine dependence, uncomplicated F17.210 and Family history of coronary arteriosclerosis Z82.49 [facility] [address] [place] [address] 04/09/2022 Peewee Villarreal Generalized postprandial abdominal pain R10.84 and Early satiety R68.81 [facility] [address] [place] [address] 12/12/2022 Feliciano Dwyer Nausea and vomiting, unspecified vomiting type R11.2 and Depression, unspecified depression type F32.A [facility] [address] [place] [address] 10/31/2022 Feliciano Dwyer [facility] [address] [place] [address], [place] [address] 10/21/2022 Clifford Adrienne [facility] [address] [place] [address] 04/16/2022 Mirta Carballo Nausea R11.0 ; Anxie ty F41.9 and Primary hypertension I10 [facility] [address] [place] [address] 04/22/2022 Mirta Carballo Anxiety F41.9 ; Depression, unspecified depression type F32.A ; Primary hypertension I10 ; Tachycardia R00.0 ; Nicotine dependence, cigarettes, uncomplicated F17.210 ; Mixed hyperlipidemia E78.2 ; Hyponatremia E87.1 and Thyroid disorder screen Z13.29 [facility] [address] [place] [address], [place] [address] 09/16/2022 Clifford Cordovauitt [facility] [address] [place] [address], [place] [address] 08/22/2022 Clifford Cordovauitt [facility] [address] [place] [address] 08/27/2022 [facility] [address] [place] [address], [place] [address] 08/12/2022 Clifford Deleon Palpitations R00.2 ASSESSMENTS Encounter Date Diagnosis Assessment [...] vomiting, unspecified vomiting type (ICD-10 - R11.2) 12/30/2022 Diarrhea, unspecifie d type (ICD-10 - R19.7) 11/22/2022 Primary hypertension (ICD-10 - I10) resume [...] box and take this to the nearest [employer] dropbox. We will contact them with results [...] Other Venipuncture performed by BLADIMIR Brower to [facility], 22 guage needle, not enough blood obtained, Pt tolerated well, bleeding controlled with light dressing. Lab sent to [facility] via estate planning director. Venipuncture: Performed by: Lemuel GARRISON Attempts: x1 Location: [facility] Needle gauge: 22G Patient tolerated well. 08/05/2022 [...] TREATMENT Pending Test Test Name Order Date Giardia/Cryptosporidium Screen 91591, 87 329 12/30/2022 Calprotectin Fecal 47894 12/30/2022 C Diff Toxin EIA--53024 12/30/2022 Electrocardiogram (EKG) - 79077 08/06/19 CT Cardiac Scoring Diagnostic-[id number] 04/2022 Insurance Providers Payer Name Payer Address Payer Phone Subscriber Number Group Number Insured Name Patient Relationship to Insured Coverage Start Date Coverage End Date [employer] [address] GREGORIA Montanez [place] [phone] [id number] Leydikristin Zhane Self - patient is the insured MEDICATIONS ADMINISTERED Medication Instructions Date of Administration Dosage Notes DEPO-Medrol 10/19/2021 [place] [address] 3-1 pt tolerated well/instructed to wait 20 min dexAMETHasone 10/19/2021 4 mg ndc 17239-1 573-1 pt tolerated well/instructed pt to wait 20 min MEDICAL (GENERAL) HISTORY Medical History History ICD Code breast cancer right heartburn High Blood Pressure COVID VACCINATION X2 COVID SEPTEMBER 2021 LONG COVID Surgical History Surgery Date(Month/Year) cholecystectomy breast reconstruction breast biopsy left 2020 dilation and curettage Hospitalization History Reason Date(Month/Year) see surgical history [facility] 07/2022 childbirth
[2023-01-08 15:17] VITALS: BP 132/72; PULSE 90; RESP 17; TEMP 36.6; O2SAT 95
[2023-01-08] MEDS: sodium chloride 0.9% 1,000 ML 75 ML IV (15:28)
[2023-01-13] MEDS: sodium chloride 0.9% 1,000 ML 999 ML IV (15:02)
[2023-01-13 15:13] LABS: Basophils % 0.2 %; Eosinophils % 0.2 %; Hematocrit 42.7 % (36-47); Lymphocytes # 1.9 10^3/uL (0.8-4.8); Lymphocytes % 15.7 %; Mean Corpuscular Hemoglobin 30.8 pg (27-33); Mean Corpuscular Volume 93.2 fl (85-98); Mean Platelet Volume 9.3 fL (7.4-10.4); Monocytes # 0.8 10^3/uL (0.2-0.9); Monocytes % 6.7 %; Neutrophils % 76.8 %; Nucleated Red Blood Cells % 0 %; Platelet Count 381 10^3/cmm (157-399); Red Blood Count 4.58 10^6/uL (3.85-5.65); Red Cell Distribution Width 13.1 % (12.1-15.1); White Blood Count 12.01 10^3/uL (3.29-11.43)
[2023-01-13] MEDS: famotidine 20 mg/2 mL INJ IVP (15:53)
[2023-01-13] MEDS: ondansetron 2 mg/ML SDV 2 mL 8 MG IVP (15:57)
[2023-01-13 16:05] LABS: Alanine Aminotransferase < 5 U/L (0-33); Albumin Level 3.3 g/dL (3.5-5.2); Alkaline Phosphatase 78 U/L (35-105); Aspartate Amino Transferase 8 U/L (0-32); Blood Urea Nitrogen 10 mg/dL (8-23); Carbon Dioxide 30 mmol/L (22-29); Chloride 97 mmol/L (98-107); Globulin 3.2 g/dL (1.3-4.6); Glomerular Filtration Rate 85.1 mL/min (90-130); Glucose 119 mg/dL (65-115); Osmolality Calculated 280 mOsm/kg (285-295); Sodium 135 mmol/L (136-145); Total Bilirubin 0.3 mg/dL (0.15-1.2); Total Protein 6.5 g/dL (6.6-8.7)
[2023-01-13 16:07] LABS: Anion Gap 11.3 (5-19); Potassium 3.3 mmol/L (3.5-5.1)
[2023-01-13 16:31] VITALS: BP 152/78; PULSE 82; RESP 18; TEMP 37.2; O2SAT 92
[2023-01-14 11:16] LABS: Thyroid Stimulating Hormone 0.52 uIU/mL (0.27-4.20)
[2023-01-15] MEDS: sodium chloride 0.9% 250 ML IV (15:42)
[2023-01-15] MEDS: sodium chlor 0.9% + KCl 20 mEq 20 MEQ/1,000 ML BAG 500 MEQ IV (16:00)
[2023-01-15 16:16] VITALS: BP 140/78; PULSE 60; RESP 18; TEMP 36.6; O2SAT 97
[2023-01-15 18:07] VITALS: BP 138/81; PULSE 71; RESP 16; TEMP 36.8; O2SAT 98
--- OUTSIDE RECORDS SUMMARY | 2023-01-16 10:01 | XMS_ITS | Patient Health Record ---
Author Name Unknown Organization [facility] Address [address] [place] [address] Care Team Providers Care Child And Adolescent Therapist Name Role Phone Mirta Carballo Primary Care Provider MIRNA MIRTA Unavailable Unavailable Feliciano Dwyer Unavailable [phone] Clifford Deleon Unavailable [phone] Peewee Villarreal Unavailable ALLERGIES Allergen (clinical drug ingredient) Drug/Non Drug Allergy documented on EMR Reaction Allergy Type Onset Date Status sucralfate Carafate Unknown Drug Allergy Active Penicillin Unknown Drug Allergy Active vancomycin Vancomycin Unknown Drug Allergy Activ e RESULTS Component Value Reference Range Notes MRI Abdomen MRCP w/o Cont-74 181 Reviewed date:05/20/2022 01:42:46 PM Interpretation: Performing Lab: Notes/Report: sdr=[id number]&org=iSite NM Gastric Emptying Study-78 264 Reviewed date:04/24/2022 09:34:00 AM Interpretation: Performing Lab: Notes/Report: yti=[id number]&org=iSite NM Gastric Emptying Study-78 264 Reviewed date:04/24/2022 09:33:54 AM Interpretation: Performing Lab: Notes/Report: See Below For Report NM Gastric Emptying Study Diagnosis Description: Generalized abdominal pain Comprehensive Metabolic Pane l 99663 Reviewed date:04/22/2022 09:36:53 PM Interpretation: Performing Lab: Notes/Report: Diagnosis Description: Essential (primary) hypertension Glucose Serum 130 71-110 MG/DL BUN 9 7-21 MG/DL Creat .69 .51-1.17 MG/DL U-pnrmql-q-benzoquinon e imine (NAPQI) is a metabolite of acetaminophen, [...] 286 280-300 MOSM/KG CBC w\ Auto Diff 24148 Reviewed date:04/22/2022 09:37:08 PM Interpretation: Performing Lab: [...] 42.0-75.0 % Lymph Auto% 22.8 20.0-51.0 % [place] Auto% 6.9 1.7-9.3 % Eos Auto% 1.9 .0-6.0 % Baso Auto% 0.5 0.0-1.0 % Imm Gran% .1 .0-.4 % Neutro Abs 5.43 .80-7.70 Lymph Abs 1.82 .10-4.10 [place] Abs .55 .20-1.00 Eos Abs .15 .00-.40 Baso Abs .04 .00-.10 Imm Gran Abs .01 .00-.10 NRBC# .00 .00-.20 X10'3 NRBC% .00 .00-.20 /100 intact WBC's Thyroxine (T4) 24692 Reviewed date:04/22/2022 09:37:20 PM Interpretation: Performing Lab: Notes/Report: Diagnosis Description: Encounter for screening for other suspected endocrine disorder ThyroxinT4 10.4 4.8-13.9 Lipid Panel Reflex DLDL 8006 1, 77663 Reviewed date:04/22/2022 09:37:36 PM Interpretation: Performing Lab: Notes/Report: Diagnosis Description: Mixed hyperlipidemia Trig 126 Classification Guidelines:Triglyceride s Adults: >20yrs Desirable <150 Borderline High 150-199 [...] LDL 144 0-130 MG/DL LDL result is inaccurate , if Trig is >400 mg/dl. See DLDL result. Thyroid Stimulating Hormone (TSH) 91945 Reviewed date:04/22/2022 09:37:47 PM Interpretation: Performing Lab: Notes/Report: Diagnosis Description: Encounter for screening for other suspected endocrine disorder TSH 1.372 .358-3.740 MlU/ML MRI Abdomen MRCP w/o Cont-74 181 Reviewed date:05/20/2022 12:07:34 PM Interpretation: Performing Lab: Notes/Report: See Below For Report MRI Abdomen MRCP w/o Cont Echo Complete [id number] Reviewed date:09/20/2022 08:42:49 AM Interpretation: Performing Lab: Notes/Report: urb=[id number]&org=iSite Holter 7 day-[id number],[id number] Reviewed date:08/05/2022 05:06:46 PM Interpretation: Performing Lab: Notes/Report: Holter 7 day-31532,25024 Reviewed date:08/05/2022 05:06:46 PM Interpretation: Performing Lab: Notes/Report: Holter 7 day-[id number] Reviewed date:08/05/2022 05:06:46 PM Interpretation: Performing Lab: Notes/Report: Schedule Confirmation Reviewed date:08/20/2022 10:19:54 AM Interpretation: Performing Lab: Notes/Report: CT Cardiac Scoring Diagnostic Schedule Confirmation Reviewed date:10/09/2022 08:03:18 AM Interpretation: Performing Lab: Notes/Report: CT Cardiac Scoring Diagnostic Echo Complete [id number] Reviewed date:10/22/2022 07:59:52 AM Interpretation: Performing Lab: Notes/Report: Cardiopulmonary Services Name: ZHANE DENISE Study Date: 09/16/2022 : 1960 Patient [facility] Age: 62 yrs Gender: Female HR: 92 [...] Referring Physician: Clifford Deleon Performed By: Paola Valerio, Echo Schedule Confirmation Reviewed date:11/18/2022 04:22:47 PM Interpretation: Performing Lab: Notes/Report: CT Cardiac Scoring Diagnostic C Diff Toxin EIA--[id number] Reviewed date:01/14/2023 06:26:07 PM Interpretation: Performing Lab: Notes/Report: CDiff Toxin EIA ZHANE Ascencio CDiff Toxin EIA CDiff Toxin EIA t: CDiff Toxin EIA CDiff Toxin EIA [facility] [id number] CDiff Toxin EIA n: CDiff Toxin EIA Microbiology CDiff Toxin EIA CDiff Toxin EIA CDiff Toxin EIA PROCEDURE: CDiff Toxin EIA [O1 i1] CDiff Toxin EIA SOURCE: Stool BODY SITE: CDiff Toxin EIA COLLECTED DATE/TIME: 01/08/2023 09:54 CDT RECEIVED DATE/TIME: 01/08/2023 18:45 CDT CDiff Toxin EIA START DATE/TIME: 01/08/2023 18:45 CDT FREE TEXT SOURCE: CDiff Toxin EIA CDiff Toxin EIA FINAL REPORT CDiff Toxin EIA Final Report [] CDiff Toxin EIA Verified Date/Time: 01/08/2023 19:30 CDT CDiff Toxin EIA Negative for Clostridium difficile toxin A and/or B CDiff Toxin EIA CDiff Toxin EIA Order Comments CDiff Toxin EIA O1: CDiff Toxin EIA (C Diff Toxin EIA) CDiff Toxin EIA Diagnosis Description: Diarrhea, unspecified CDiff Toxin EIA CDiff Toxin EIA Interpretive Data CDiff Toxin EIA i1: CDiff Toxin EIA CDiff Toxin EIA A positive result indicates that Clostidium difficule is present and is producing toxin CDiff Toxin EIA that is responsible for C. difficile infection. Treatment of a patient yielding a positive CDiff Toxin EIA PCR result with a negative toxin result should be based on clinical symptoms. Giardia/Cryptosporidium Scre [place] 67249, [address]46 Reviewed date:01/14/2023 06:26:37 PM Interpretation: Performing Lab: Notes/Report: Giardia/Cryptosporidium Screen Patien DRYEZHNAE Giardia/Cryptosporidium Screen Giardia/Cryptosporidium Screen t: Giardia/Cryptosporidium Screen Giardia/Cryptosporidium Screen [facility] [id number] Giardia/Cryptosporidium Screen n: Giardia/Cryptosporidium Screen Microbiology Giardia/Cryptosporidium Screen Giardia/Cryptosporidium Screen Giardia/Cryptosporidium Screen PROCEDURE: Giardia/Cryptosporidi um Giardia/Cryptosporidium Screen Screen [O1] Giardia/Cryptosporidium Screen SOURCE: Stool BODY SITE: Giardia/Cryptosporidium Screen COLLECTED DATE/TIME: 01/08/2023 09:54 CDT RECEIVED DATE/TIME: 01/08/2023 18:45 CDT Giardia/Cryptosporidium Screen START DATE/TIME: 01/08/2023 18:45 CDT FREE TEXT SOURCE: Giardia/Cryptosporidium Screen Giardia/Cryptosporidium Screen FINAL REPORT Giardia/Cryptosporidium Screen Final Report [] Giardia/Cryptosporidium Screen Verified Date/Time: 01/08/2023 19:30 CDT Giardia/Cryptosporidium Screen Negative for Giardia/Cryptosporidi um Antigen Giardia/Cryptosporidium Screen Giardia/Cryptosporidium Screen Order Comments Giardia/Cryptosporidium Screen O1: Giardia/Cryptosporidi um Screen (Giardia/Cryptosporid ium Screen 80765, 40130) Giardia/Cryptosporidium Screen Diagnosis Description: Diarrhea, unspecified Calprotectin Fecal 84045 Reviewed date:01/14/2023 06:26:46 PM Interpretation: Performing Lab: Notes/Report: Diagnosis Description: Diarrhea, unspecified Calprotectin Fecal 185 <=49 REFERENCE INTERVAL: Calprotectin, Fecal by Immunoassay Less than 50 ug/g.........Normal 50-120 ug/g...............Bord kendal elevated, test should be re-evaluated in 4-6 weeks. 121 ug/g or greater.......Elevated Performed By: [employer] [address] [place] [address] Stockroom Keeper: Lm Casey MD, PhD CLIA Number: [id number] REASON FOR REFERRAL Reason gastritis Diagnosis 1 Gastroesophageal ref lux disease without esophagitis (K21.9) Referral Organization [facility] Referring Provider First Name Mirta Referring Provider Last Name Carballo Referring Provider Speciality Nurse Salma birch Referred Provider Jermaine Lane General Notes Elizabet Oreilly 06/2022 11:25:52 AM >Patient decided to see Dr. Delmer iVllarreal. Referral Priority Routine Reason HIGH BP, HEART RATE ISSUES AND SOB Diagnosis 1 Heart rate problem ( R00.9) Diagnosis 2 Hypertension, unspec ified type (I10) Diagnosis 3 SOB (shortness of br eath) (R06.02) Referral Organization [facility] Referring Provider First Name Mirta Referring Provider Last Name Carballo Referring Provider Speciality Nurse Salma birch Referred Organization [facility] Referred Provider Clifford Deleon Referred Address [address] [place] [address],[place],[phone], Referred Provider Specialty Cardiology Referral Priority Routine Reason tachycardia Diagnosis 1 Tachycardia (R00.0) Diagnosis 2 Primary hypertension (I10) Diagnosis 3 Nicotine dependence, cigarettes, uncomplicated (F17.210) Referral Organization [facility] Referring Provider First Name Mirta Referring Provider Last Name Carballo Referring Provider Speciality Nurse Salma birch Referred Provider [facility] Referred Provider Specialty Cardiology General Notes Elizabet Oreilly 04/07 10:21:47 AM >Per chart patient has apt on 05/29/[address] Deleon at [facility] Elizabet Oreilly 08/09/2022 04:31:40 PM >See referral note Referral Priority Routine Referral Appointment Date 08/05/2022 Reason Eval and Treat Diagnosis 1 Atrophic gastritis w ithout hemorrhage (K29.40) Diagnosis 2 Gastroesophageal ref lux disease without esophagitis (K21.9) Diagnosis 3 Sphincter of Oddi dy sfunction (K83.4) Referral Organization [facility] Referring Provider [...] 30 days Not-Takin g Ondansetron 4 MG DISSOLVE 1 TABLET IN MOUTH EVERY 4 HOURS NEEDED FOR NAUSEA FOR 30 DAYS for 30 Active Promethazine HCl 25 MG TAKE 1 TABLET [...] hrs prn anxiety for 30 day(s) Not-Taking Metoprolol Tartrate 50 MG TAKE 2 TABLETS BY MOUTH TWICE DAILY WITH FOOD for 90 Active Reglan 10 MG 1 tablet Orally Once Active Pantoprazole Sodium 20 MG 1 tablet [...] Notes Problem Mixed hyperlipidemia (E78.2) Active confirmed 946552396 Problem Nicotine dependence, cigarettes, uncomplicated (F17.210) Active confirmed 46703017 Problem Nausea (R11.0) Active confirmed 4018500 07 Problem Early satiety (R68.81) Active confirmed 913480467 Problem Gastroesophageal reflux disease without esophagitis (K21.9) Active confirmed 161572906 Problem Anxiety (F41.9) Active confirmed 277768 02 Problem SOB (shortness of breath) (R06.02) Active confirmed 810431951 Problem Hypertension, unspecified type (I10) Active confirmed 00617201 Problem Hyponatremia (E87.1) Active confirmed 8 5799071 Problem History of breast cancer (Z85.3) Active confirmed 954365864 Problem Thyroid disorder screen (Z13.29) Active confirmed 626748265 Problem Acute gastritis without hemorrhage, unspecified gastritis type (K29.00) Active confirmed 76909700 Problem Generalized postprandial abdominal pain (R10.84) Active confirmed 841523821 Problem COVID-19 (U07.1) Active confirmed 30678 9006 Problem 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) Active confirmed 848195501 Problem Atrophic gastritis without hemorrhage (K29.40) Active confirmed 22833311 Problem 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) Active confirmed 051685158 Problem Primary hypertension (I10) Active confirmed 91058669 Problem Heart rate problem (R00.9) Active confirmed 785431895 VITAL SIGNS Heart Rate 73 /min 12/12/2022 Temperature 97.9 degrees Fahrenheit 12/12/2022 Respiratory Rate 18 /min 12/12/2022 Height-cm 165.1 cm 12/12/2022 Oximetry 96 % 12/12/2022 Blood pressure diastolic 70 mm Hg 12/12/2022 Weight-kg 66.13 kg 12/12/2022 Height 65 in 12/12/2022 Blood pressure systolic 120 mm Hg 12/12/2022 Weight 145.8 lbs 12/12/2022 BMI 24.26 kg/m2 12/12/2022 Encounters Encounter Location Date Provider Diagnosis [place] [address] [address] 01/22/2022 [place] [address] [address] 03/05/2022 [place] [address] [place] [address] 03/08/2022 [facility] [address] [place] [address] 03/22/2022 [facility] [address] [facility] [address] [place] [address] 03/28/2022 [facility] Gastroesophageal reflux disease without esophagitis K21.9 ; Acute gastritis without hemorrhage, unspecified gastritis type K29.00 and Nausea R11.0 [facility] [address] [place] [address] 04/09/2022 [facility] [address] [place] [address] 04/16/[address] [facility] [address] [place] [address] 04/17/2022 [facility] [address] [place] [address] 04/19/2022 [facility] [address] [place] [address] 04/22/2022 [facility] [address] [facility] [place] [address] 04/22/[address] [facility] [address] [place] [address] 04/23/2022 [facility] [address] [place] [address] 07/16/2022 [facility] [address] [place] [address] 08/12/2022 [facility] [address] [facility] [address] [place] [address] 08/15/2022 [facility] [address] [place] [address] 08/27/2022 Clifford Deleon [facility] [address] [place] [address] 10/14/2022 Clifford Deleon [facility] [address] [place] [address] 11/29/2022 [facility] Nausea R11.0 [facility] [address] [place] [address] 12/18/2022 [facility] [address] [place] [address] 01/10/2023 Feliciano Dwyer Diarrhea, unspecifie d type R19.7 [facility] [address] [place] [address] 01/01/2023 [facility] [address] [place] [address] 01/13/2023 [facility] Nausea R11.0 [facility] [address] [place] [address] 04/30/2022 Peewee Villarreal [address] [place] [address] 05/07/[address] [place] [address] 05/13/2022 [facility] [address] [place] [address] 05/07/2022 Peewee Villarreal [facility] [address] [place] [address] 05/21/2022 Peewee Villarreal Gastroesophageal reflux disease without esophagitis K21.9 and Sphincter of Oddi dysfunction K83.4 [facility] [address] [place] [address] 11/22/2022 [facility] Bronchitis J40 ; Wheezes R06.2 ; Primary hypertension I10 and Nicotine dependence, cigarettes, uncomplicated F17.[address] [place] [address] 12/31/2022 [facility] [address] [place] [address] 04/09/2022 Peewee Villarreal Generalized postprandial abdominal pain R10.84 and Early satiety R68.81 [facility] [address] [place] [address] 05/29/2022 Clifford Deleon [facility] [address] [place] [address], [place] [address] 08/05/2022 Clifford Cordovauitt SOB (shortness of breath) R06.02 ; Dyspnea on exertion R06.00 ; Palpitations R00.2 ; Cigarette nicotine dependence, uncomplicated F17.210 and Family history of coronary arteriosclerosis Z82.49 [facility] [address] [place] [address] 10/31/2022 Feliciano Dwyer [facility] [address] [facility] [place] [address] 12/12/2022 Feliciano Dwyer Nausea and vomiting, unspecified vomiting type R11.2 and Depression, unspecified depression type F32.A [facility] [address] [place] [address], [place] [address] 10/21/2022 Clifford Deleon [address] [place] [address] 04/16/2022 Mirta Carballo Nausea R11.0 ; Anxie ty F41.9 and Primary hypertension I10 [address] [place] [address] 04/22/2022 Mirta Carballo Anxiety F41.9 ; Depression, unspecified depression type F32.A ; Primary hypertension I10 ; Tachycardia R00.0 ; Nicotine dependence, cigarettes, uncomplicated F17.210 ; Mixed hyperlipidemia E78.2 ; Hyponatremia E87.1 and Thyroid disorder screen Z13.29 [facility] [address] [place] [address], [place] [address] 08/22/2022 Clifford Rodriguezt [facility] [address] [place] [address], [place] [address] 08/27/2022 Clifford Deleon [facility] [address] [place] [address], [place] [address] 09/16/[address] [facility] [address] [place] [address], [place] [address] 08/12/2022 Clifford Cordovauitt Palpitations R00.2 ASSESSMENTS Encounter Date Diagnosis Assessment [...] - R06.00) 08/12/2022 Palpitations (ICD-10 - R00.2) 12/12/2022 Depression, unspecified depression type (ICD-10 - F32.A) 12/12/2022 Nausea and vomiting, unspecified vomiting type (ICD-10 - R11.2) 11/22/2022 Bronchitis (ICD-10 - J40) levoquin 11/22/2022 Wheezes (ICD-10 - R06.2) albuteral hfa (has medrol dose pack 11/29/2022 Nausea (ICD-10 - R11.0) 01/10/2023 Diarrhea, unspecifie d type (ICD-10 - R19.7) 01/13/2023 Nausea (ICD-10 - R11.0) 11/22/2022 Primary hypertension [...] box and take this to the nearest [employer] dropbox. We will contact them with results [...] Other Venipuncture performed by BLADIMIR Brower to [facility], 22 guage needle, not enough blood obtained, Pt tolerated well, bleeding controlled with light dressing. Lab sent to [facility] via optical glass inspector. Venipuncture: Performed by: Lemuel GARRISON Attempts: x1 Location: [facility] Needle gauge: 22G Patient tolerated well. 08/05/2022 [...] Test Test Name Order Date Giardia/Cryptosporidium Screen 66401, 87 329 01/10/2023 Calprotectin Fecal 03453 01/10/2023 C Diff Toxin EIA--71853 01/10/2023 Electrocardiogram (EKG) - 42292 08/06/[address] Cardiac Scoring Diagnostic-68436 04/2022 Next Appt Details Provider Name:Feliciano Velazquez Dwyer , 01/23/2023 04:30:00 PM, [address], [place], [address], Insurance Providers Payer Name Payer Address Payer Phone Subscriber Number Group Number Insured Name Patient Relationship to Insured Coverage Start Date Coverage End Date [employer] [address] [place] [phone] [id number] Zhane Denise Self - patient is the insured MEDICATIONS ADMINISTERED Medication Instructions Date of Administration Dosage Notes DEPO-Medrol 10/19/2021 40 mg [facility] [address]-1 pt tolerated well/instructed to wait 20 min dexAMETHasone 10/19/2021 4 mg ndc 21490-4 573-1 pt tolerated well/instructed pt to wait 20 min MEDICAL (GENERAL) HISTORY Medical History History ICD Code breast cancer right heartburn High Blood Pressure COVID VACCINATION X2 COVID SEPTEMBER 2021 LONG COVID Surgical History Surgery Date(Month/Year) dilation and curettage breast biopsy left 2020 breast reconstruction cholecystectomy Hospitalization History Reason Date(Month/Year) see surgical history [facility] 07/2022 childbirth
[2023-01-16 10:07] VITALS: BP 147/81; PULSE 94; RESP 17; TEMP 37.3; O2SAT 97
[2023-01-16] MEDS: LORazepam 2 mg/mL INJ 1 mL 1 MG IVP (10:33)
[2023-01-16] MEDS: sodium chlor 0.9% + KCl 20 mEq 20 MEQ/1,000 ML BAG 150 MEQ IV (10:39)
[2023-01-16] MEDS: ondansetron 2 mg/ML SDV 2 mL 8 MG IVP (12:26)
--- OUTSIDE RECORDS SUMMARY | 2023-01-17 09:30 | XMS_ITS | Patient Health Record ---
Author Name Unknown Organization [facility] Address [address] [place] [address] Care Team Providers Care Manager Case Name Role Phone Mirta Carballo Primary Care Provider MIRNA MIRTA Unavailable Unavailable Feliciano Dwyer Unavailable [phone] Clifford Deleon Unavailable [phone] Peewee Villarreal Unavailable ALLERGIES Allergen (clinical drug ingredient) Drug/Non Drug Allergy documented on EMR Reaction Allergy Type Onset Date Status sucralfate Carafate Unknown Drug Allergy Active Penicillin Unknown Drug Allergy Active vancomycin Vancomycin Unknown Drug Allergy Activ e RESULTS Component Value Reference Range Notes MRI Abdomen MRCP w/o Cont-74 181 Reviewed date:05/20/2022 01:42:46 PM Interpretation: Performing Lab: Notes/Report: [id number]&org=iSite NM Gastric Emptying Study-78 264 Reviewed date:04/24/2022 09:34:00 AM Interpretation: Performing Lab: Notes/Report: [id number]&org=iSite NM Gastric Emptying Study-78 264 Reviewed date:04/24/2022 09:33:54 AM Interpretation: Performing Lab: Notes/Report: See Below For Report NM Gastric Emptying Study Diagnosis Description: Generalized abdominal pain Comprehensive Metabolic Pane l 21893 Reviewed date:04/22/2022 09:36:53 PM Interpretation: Performing Lab: Notes/Report: Diagnosis Description: Essential (primary) hypertension Glucose Serum 130 71-110 MG/DL BUN 9 7-21 MG/DL Creat .69 .51-1.17 MG/DL U-xivmvm-a-benzoquinon e imine (NAPQI) is a metabolite of [...] 286 280-300 MOSM/KG CBC w\ Auto Diff 94034 Reviewed date:04/22/2022 09:37:08 PM Interpretation: Performing Lab: [...] 42.0-75.0 % Lymph Auto% 22.8 20.0-51.0 % [place] Auto% 6.9 1.7-9.3 % Eos Auto% 1.9 .0-6.0 % Baso Auto% 0.5 0.0-1.0 % Imm Gran% .1 .0-.4 % Neutro Abs 5.43 .80-7.70 Lymph Abs 1.82 .10-4.10 [place] Abs .55 .20-1.00 Eos Abs .15 .00-.40 Baso Abs .04 .00-.10 Imm Gran Abs .01 .00-.10 NRBC# .00 .00-.20 X10'3 NRBC% .00 .00-.20 /100 intact WBC's Thyroxine (T4) 23249 Reviewed date:04/22/2022 09:37:20 PM Interpretation: Performing Lab: Notes/Report: Diagnosis Description: Encounter for screening for other suspected endocrine disorder ThyroxinT4 10.4 4.8-13.9 Lipid Panel Reflex DLDL 8006 1, 08139 Reviewed date:04/22/2022 09:37:36 PM Interpretation: Performing Lab: [...] See DLDL result. Thyroid Stimulating Hormone (TSH) 80472 Reviewed date:04/22/2022 09:37:47 PM Interpretation: Performing Lab: Notes/Report: Diagnosis Description: Encounter for screening for other suspected endocrine disorder TSH 1.372 .358-3.740 MlU/ML MRI Abdomen MRCP w/o Cont-74 181 Reviewed date:05/20/2022 12:07:34 PM Interpretation: Performing Lab: Notes/Report: See Below For Report MRI Abdomen MRCP w/o Cont Echo Complete [id number] Reviewed date:09/20/2022 08:42:49 AM Interpretation: Performing Lab: Notes/Report: dfh=[id number]&org=Uma Holter 7 day-81533,37290 Reviewed date:08/05/2022 05:06:46 PM Interpretation: Performing Lab: Notes/Report: Holter 7 day-49012,12717 Reviewed date:08/05/2022 05:06:46 PM Interpretation: Performing Lab: Notes/Report: Holter 7 day-79135,22597 Reviewed date:08/05/2022 05:06:46 PM Interpretation: Performing Lab: Notes/Report: Schedule Confirmation Reviewed date:08/20/2022 10:19:54 AM Interpretation: Performing Lab: Notes/Report: CT Cardiac Scoring Diagnostic Schedule Confirmation Reviewed date:10/09/2022 08:03:18 AM Interpretation: Performing Lab: Notes/Report: CT Cardiac Scoring Diagnostic Schedule Confirmation Reviewed date:11/18/2022 04:22:47 PM Interpretation: Performing Lab: Notes/Report: CT Cardiac Scoring Diagnostic C Diff Toxin EIA--25256 Reviewed date:01/14/2023 06:26:07 PM Interpretation: Performing Lab: Notes/Report: CDiff Toxin EIA ZHANE Ascencio CDiff Toxin EIA CDiff Toxin EIA t: CDiff Toxin EIA CDiff Toxin EIA [facility]-[id number] CDiff Toxin EIA n: CDiff Toxin EIA [...] based on clinical symptoms. Giardia/Cryptosporidium Scre en 63413, 26075 Reviewed date:01/14/2023 06:26:37 PM Interpretation: Performing Lab: Notes/Report: Giardia/Cryptosporidium Screen ZHANE Ascencio Giardia/Cryptosporidium Screen Giardia/Cryptosporidium Screen t: Giardia/Cryptosporidium Screen Giardia/Cryptosporidium Screen [facility] [id number] Giardia/Cryptosporidium Screen n: Giardia/Cryptosporidium Screen Microbiology Giardia/Cryptosporidium [...] O1: Giardia/Cryptosporidi um Screen (Giardia/Cryptosporid ium Screen 47685, 97596) Giardia/Cryptosporidium Screen Diagnosis Description: Diarrhea, unspecified Calprotectin Fecal 63943 Reviewed date:01/14/2023 06:26:46 PM Interpretation: Performing Lab: Notes/Report: Diagnosis Description: Diarrhea, unspecified Calprotectin Fecal 185 <=49 REFERENCE INTERVAL: Calprotectin, Fecal by Immunoassay Less than 50 ug/g.........Normal 50-120 ug/g...............Bord kendal elevated, test should be re-evaluated in 4-6 weeks. 121 ug/g or greater.......Elevated Performed By: [email or web address] [address] [place] [address] Oncology Registrar: Lm Casey MD, PhD CLIA Number: [id number] Echo Complete [id number] Reviewed date:10/22/2022 07:59:52 AM Interpretation: Performing Lab: Notes/Report: Cardiopulmonary Services Name: ZHANE DENISE Study Date: 09/16/2022 : 1960 Patient Location: [facility] Age: 62 yrs Gender: Female HR: 92 [...] Clifford Deleon Performed By: Paola Valerio Echo REASON FOR REFERRAL Reason gastritis Diagnosis 1 Gastroesophageal ref lux disease without esophagitis (K21.9) Referral Organization [facility] Referring Provider First Name Mirta Referring Provider [...] of br eath) (R06.02) Referral Organization [facility] Referring Provider First Name Mirta Referring Provider Last Name Carballo Referring Provider Speciality Nurse Salma birch Referred Organization [facility] Referred Provider Clifford Deleon Referred Address [address] [place] [address],[place],[phone], Referred Provider Specialty Cardiology Referral Priority Routine Reason tachycardia Diagnosis 1 Tachycardia (R00.0) Diagnosis 2 Primary hypertension (I10) Diagnosis 3 Nicotine dependence, cigarettes, uncomplicated (F17.210) Referral Organization [facility] Referring Provider First Name Mirta Referring Provider Last Name Carballo Referring Provider Speciality Nurse Salma birch Referred Provider [facility] Referred Provider Specialty Cardiology General Notes Elizabet [...] of Oddi dy sfunction (K83.4) Referral Organization [facility] Referring Provider [...] Notes Problem Mixed hyperlipidemia (E78.2) Active confirmed 446985960 Problem Nicotine dependence, cigarettes, uncomplicated (F17.210) Active confirmed 39500068 Problem Nausea (R11.0) Active confirmed 9751768 07 Problem Early satiety (R68.81) Active confirmed 790956494 Problem Gastroesophageal reflux disease without esophagitis (K21.9) Active confirmed 639339073 Problem Anxiety (F41.9) Active confirmed 475685 02 Problem SOB (shortness of breath) (R06.02) Active confirmed 538647630 Problem Hypertension, unspecified type (I10) Active confirmed 97294875 Problem Hyponatremia (E87.1) Active confirmed 8 6810079 Problem History of breast cancer (Z85.3) Active confirmed 465149559 Problem Thyroid disorder screen (Z13.29) Active confirmed 243687432 Problem Acute gastritis without hemorrhage, unspecified gastritis type (K29.00) Active confirmed 85032404 Problem Generalized postprandial abdominal pain (R10.84) Active confirmed 072716892 Problem COVID-19 (U07.1) Active confirmed 09890 9006 Problem 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) Active confirmed 774887442 Problem Atrophic gastritis without hemorrhage (K29.40) Active confirmed 40327238 Problem 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) Active confirmed 561649546 Problem Primary hypertension (I10) Active confirmed 58648957 Problem Heart rate problem (R00.9) Active confirmed 575866067 VITAL SIGNS Heart Rate 73 /min 12/12/2022 Temperature 97.9 degrees Fahrenheit 12/12/2022 Respiratory Rate 18 /min 12/12/2022 Height-cm 165.1 cm 12/12/2022 Oximetry 96 % 12/12/2022 Blood pressure diastolic 70 mm Hg 12/12/2022 Weight-kg 66.13 kg 12/12/2022 Height 65 in 12/12/2022 Blood pressure systolic 120 mm Hg 12/12/2022 Weight 145.8 lbs 12/12/2022 BMI 24.26 kg/m2 12/12/2022 Encounters Encounter Location Date Provider Diagnosis [place] [address] [address] 01/22/2022 [place] [address] [address] 03/05/2022 [place] [address] [place] [address] 03/08/2022 [facility] [address] [place] [address] 03/22/2022 [facility] [address] [facility] [address] [place] [address] 03/28/2022 [facility] Gastroesophageal reflux disease without esophagitis K21.9 ; Acute gastritis without hemorrhage, unspecified gastritis type K29.00 and Nausea R11.0 [facility] [address] [place] [address] 04/09/2022 [facility] [address] [place] [address] 04/16/2022 [facility] [address] [place] [address] 04/17/2022 [facility] [address] [place] [address] 04/19/2022 [facility] [address] [place] [address] 04/22/2022 [facility] [address] [place] [address] 04/22/2022 [facility] [address] [place] [address] 04/23/2022 [facility] [address] [place] [address] 07/16/2022 [facility] [address] [place] [address] 08/12/2022 [facility] [address] [facility] [address] [place] [address] 08/15/2022 [facility] [address] [place] [address] 08/27/2022 Clifford Deleon [facility] [address] [place] [address] 10/14/2022 Clifford Deleon [facility] [address] [place] [address] 11/29/2022 [facility] Nausea R11.0 [facility] [address] [place] [address] 12/18/2022 [facility] [address] [place] [address] 01/01/2023 [facility] [address] [place] [address] 01/10/2023 Feliciano Dwyer Diarrhea, unspecifie d type R19.7 [facility] [address] [place] [address] 01/13/2023 [facility] Nausea R11.0 [facility] [address] [place] [address] 11/22/2022 [facility] Bronchitis J40 ; Wheezes R06.2 ; Primary hypertension I10 and Nicotine dependence, cigarettes, uncomplicated F17.210 [facility] [address] [place] [address] 12/31/2022 [facility] [address] [place] [address] 04/30/2022 [facility] [address] [place] [address] 05/07/2022 [facility] [address] [place] [address] 05/07/2022 Peewee Villarreal [facility] [address] [place] [address] 05/13/2022 [facility] [address] [place] [address] 05/21/2022 Peewee Villarreal Gastroesophageal reflux disease without esophagitis K21.9 and Sphincter of Oddi dysfunction K83.4 [facility] [address] [place] [address], [place] [address] 05/29/2022 Clifford Deleon [facility] [address] [place] [address] 08/05/2022 Clifford Deleon SOB (shortness of breath) R06.02 ; Dyspnea on exertion R06.00 ; Palpitations R00.2 ; Cigarette nicotine dependence, uncomplicated F17.210 and Family history of coronary arteriosclerosis Z82.49 [facility] [address] [place] [address] 04/09/2022 Peewee Villarreal Generalized postprandial abdominal pain R10.84 and Early satiety R68.81 [facility] [address] [place] [address] 12/12/2022 Feliciano Dwyer Nausea and vomiting, unspecified vomiting type R11.2 and Depression, unspecified depression type F32.A [facility] [address] [place] [address] 10/31/2022 Feliciano Dwyer [facility] [address] [place] [address], [place] [address] 10/21/2022 Clifford Deleon [facility] [address] [place] [address] 04/16/2022 Mirta Carballo Nausea R11.0 ; Anxie ty F41.9 and Primary hypertension I10 [facility] [address] [place] [address] 04/22/2022 Mirta Carballo Anxiety F41.9 ; Depression, unspecified depression type F32.A ; Primary hypertension I10 ; Tachycardia R00.0 ; Nicotine dependence, cigarettes, uncomplicated F17.210 ; Mixed hyperlipidemia E78.2 ; Hyponatremia E87.1 and Thyroid disorder screen Z13.29 [facility] [address] [place] [address], [place] [address] 09/16/2022 Clifford Deleon [facility] [address] [place] [address], [place] [address] 08/22/2022 Clifford [facility] [address] [place] [address], [place] [address] 08/27/2022 Clifford Deleon [facility] [address] [place] [address], [place] [address] 08/12/2022 Clifford Deleon Palpitations R00.2 ASSESSMENTS Encounter [...] box and take this to the nearest [employer] dropbox. We will contact them with results [...] Other Venipuncture performed by BLADIMIR Brower to [facility], 22 guage needle, not enough blood obtained, Pt tolerated well, bleeding controlled with light dressing. Lab sent to [facility] via commercial stripper. Venipuncture: Performed by: Lemuel GARRISON Attempts: x1 Location: [facility] Needle gauge: 22G Patient tolerated [...] Test Test Name Order Date Giardia/Cryptosporidium Screen 76516, 87 329 01/10/2023 Calprotectin Fecal 65265 01/10/2023 C Diff Toxin EIA--29696 01/10/2023 Electrocardiogram (EKG) - 25558 08/06/[address] Cardiac Scoring Diagnostic-[id number] 04/2022 Next Appt Details Provider Name:Feliciano Velazquez Dwyer , 01/23/2023 04:30:00 PM, [address], [place], [address], Insurance Providers Payer Name Payer Address Payer Phone Subscriber Number Group Number Insured Name Patient Relationship to Insured Coverage Start Date Coverage End Date [employer] [address] [facility]1] [place] [phone] [id number] Zhane Denise Self - patient is the insured MEDICATIONS ADMINISTERED Medication Instructions Date of Administration Dosage Notes DEPO-Medrol 10/19/2021 40 mg [facility] [place][note 2] [address] 3-1 pt tolerated well/instructed to wait 20 min dexAMETHasone 10/19/2021 4 mg ndc 86999-3 573-1 pt tolerated well/instructed pt to wait 20 min MEDICAL (GENERAL) HISTORY Medical History History ICD Code breast cancer right heartburn High Blood Pressure COVID VACCINATION X2 COVID SEPTEMBER 2021 LONG COVID Surgical History Surgery Date(Month/Year) cholecystectomy dilation and curettage breast biopsy left 2020 breast reconstruction Hospitalization History Reason Date(Month/Year) see surgical history [facility]22 childbirth
[2023-01-17 10:05] VITALS: BP 147/79; PULSE 59; RESP 17; TEMP 36.6; O2SAT 96; BMI 23.6
[2023-01-17] MEDS: sodium chloride 0.9% 1,000 ML 999 ML IV (10:09)
[2023-01-17 11:15] VITALS: BP 154/91; PULSE 85; RESP 17; TEMP 36.1; O2SAT 97
--- OUTSIDE RECORDS SUMMARY | 2023-01-20 14:03 | XMS_ITS | Patient Health Record ---
Author Name Unknown Organization [facility] Address [address] [place] [address] Care Team Providers Care Urban Sociologist Name Role Phone Mirta Carballo Primary Care Provider [phone] MIRNA MIRTA Unavailable Unavailable Feliciano Dwyer Unavailable [phone] Clifford Deleon Unavailable [phone] Peewee Villarreal Unavailable ALLERGIES Allergen (clinical drug ingredient) Drug/Non Drug Allergy documented on EMR Reaction Allergy Type Onset Date Status sucralfate Carafate Unknown Drug Allergy Active Penicillin Unknown Drug Allergy Active vancomycin Vancomycin Unknown Drug Allergy Activ e RESULTS Component Value Reference Range Notes MRI Abdomen MRCP w/o Cont-74 181 Reviewed date:05/20/2022 01:42:46 PM Interpretation: Performing Lab: Notes/Report: [id number]&org=iSite NM Gastric Emptying Study-78 264 Reviewed date:04/24/2022 09:34:00 AM Interpretation: Performing Lab: Notes/Report: [id number]&org=iSite NM Gastric Emptying Study-78 264 Reviewed date:04/24/2022 09:33:54 AM Interpretation: Performing Lab: Notes/Report: See Below For Report NM Gastric Emptying Study Diagnosis Description: Generalized abdominal pain Comprehensive Metabolic Pane l 64273 Reviewed date:04/22/2022 09:36:53 PM Interpretation: Performing Lab: Notes/Report: Diagnosis Description: Essential (primary) hypertension Glucose Serum 130 71-110 MG/DL BUN 9 7-21 MG/DL Creat .69 .51-1.17 MG/DL U-toeswc-r-benzoquinon e imine (NAPQI) is a metabolite of [...] 286 280-300 MOSM/KG CBC w\ Auto Diff 75306 Reviewed date:04/22/2022 09:37:08 PM Interpretation: Performing Lab: [...] 42.0-75.0 % Lymph Auto% 22.8 20.0-51.0 % [place] Auto% 6.9 1.7-9.3 % Eos Auto% 1.9 .0-6.0 % Baso Auto% 0.5 0.0-1.0 % Imm Gran% .1 .0-.4 % Neutro Abs 5.43 .80-7.70 Lymph Abs 1.82 .10-4.10 [place] Abs .55 .20-1.00 Eos Abs .15 .00-.40 Baso Abs .04 .00-.10 Imm Gran Abs .01 .00-.10 NRBC# .00 .00-.20 X10'3 NRBC% .00 .00-.20 /100 intact WBC's Thyroxine (T4) 15175 Reviewed date:04/22/2022 09:37:20 PM Interpretation: Performing Lab: Notes/Report: Diagnosis Description: Encounter for screening for other suspected endocrine disorder ThyroxinT4 10.4 4.8-13.9 Lipid Panel Reflex DLDL 8006 1, 98179 Reviewed date:04/22/2022 09:37:36 PM Interpretation: Performing Lab: [...] See DLDL result. Thyroid Stimulating Hormone (TSH) 40037 Reviewed date:04/22/2022 09:37:47 PM Interpretation: Performing Lab: Notes/Report: Diagnosis Description: Encounter for screening for other suspected endocrine disorder TSH 1.372 .358-3.740 MlU/ML MRI Abdomen MRCP w/o Cont-74 181 Reviewed date:05/20/2022 12:07:34 PM Interpretation: Performing Lab: Notes/Report: See Below For Report MRI Abdomen MRCP w/o Cont Echo Complete [id number] Reviewed date:09/20/2022 08:42:49 AM Interpretation: Performing Lab: Notes/Report: [email or web address]=[id number]&org=iSite Holter 7 day-70249,24745 Reviewed date:08/05/2022 05:06:46 PM Interpretation: Performing Lab: Notes/Report: Holter 7 day-47405,37710 Reviewed date:08/05/2022 05:06:46 PM Interpretation: Performing Lab: Notes/Report: Holter 7 day-12446,11859 Reviewed date:08/05/2022 05:06:46 PM Interpretation: Performing Lab: Notes/Report: Schedule Confirmation Reviewed date:08/20/2022 10:19:54 AM Interpretation: Performing Lab: Notes/Report: CT Cardiac Scoring Diagnostic Schedule Confirmation Reviewed date:10/09/2022 08:03:18 AM Interpretation: Performing Lab: Notes/Report: CT Cardiac Scoring Diagnostic Echo Complete [id number] Reviewed date:10/22/2022 07:59:52 AM Interpretation: Performing Lab: Notes/Report: Cardiopulmonary Services Name: ZHANE DENISE Study Date: 09/16/2022 : 1960 [facility] Age: 62 yrs Gender: Female HR: 92 [...] CT Cardiac Scoring Diagnostic C Diff Toxin EIA--85698 Reviewed date:01/14/2023 06:26:07 PM Interpretation: Performing Lab: Notes/Report: CDiff Toxin EIA ZHANE Ascencio CDiff Toxin EIA CDiff Toxin EIA t: CDiff Toxin EIA CDiff Toxin EIA [facility] [id number] CDiff Toxin EIA n: CDiff Toxin EIA [...] based on clinical symptoms. Giard[place] 335[address], 91553 Reviewed date:01/14/2023 06:26:37 PM Interpretation: Performing Lab: Notes/Report: Giardia/Cryptosporidium Screen Patien DRYEZHANE Giardia/Cryptosporidium Screen Giardia/Cryptosporidium Screen t: Giardia/Cryptosporidium Screen Giardia/Cryptosporidium Screen [facility] [id number] Giardia/Cryptosporidium Screen n: Giardia/Cryptosporidium Screen Microbiology Giardia/Cryptosporidium [...] O1: Giardia/Cryptosporidi um Screen (Giardia/Cryptosporid ium Screen 99374, 65689) Giardia/Cryptosporidium Screen Diagnosis Description: Diarrhea, unspecified Calprotectin Fecal 11956 Reviewed date:01/14/2023 06:26:46 PM Interpretation: Performing Lab: Notes/Report: Diagnosis Description: Diarrhea, unspecified Calprotectin Fecal 185 <=49 REFERENCE INTERVAL: Calprotectin, Fecal by Immunoassay Less than 50 ug/g.........Normal 50-120 ug/g...............Bord kendal elevated, test should be re-evaluated in 4-6 weeks. 121 ug/g or greater.......Elevated Performed By: [facility] [address] [place] [address] Mincemeat Maker: Lm Casey MD, PhD CLIA Number: [id number] REASON FOR REFERRAL Reason gastritis Diagnosis 1 Gastroesophageal ref lux disease without esophagitis (K21.9) Referral Organization [facility] Referring Provider First Name Mirta Referring [...] (shortness of br eath) (R06.02) Referral Organization [facility] Referring Provider First Name Mirta Referring Provider Last Name Carballo Referring Provider Speciality Nurse Salma birch Referred Organization [facility] Referred Provider Clifford Deleon Referred Address [address] [place] [address],[place],[address], Referred Provider Specialty Cardiology Referral Priority Routine Reason tachycardia Diagnosis 1 Tachycardia (R00.0) Diagnosis 2 Primary hypertension (I10) Diagnosis 3 Nicotine dependence, cigarettes, uncomplicated (F17.210) Referral Organization [facility] Referring Provider First Name Mirta Referring Provider Last Name Carballo Referring Provider Speciality Nurse Salma birch Referred Provider [facility] Referred Provider Specialty Cardiology General Notes Elizabet Oreilly 04/07 10:21:47 AM >Per chart patient has apt on 05/29/[address] Deleon at [facility]., Elizabet Oreilly 08/09/2022 04:31:40 PM >See referral note Referral Priority Routine Referral Appointment Date 08/05/2022 Reason Eval and Treat Diagnosis 1 Atrophic gastritis w ithout hemorrhage (K29.40) Diagnosis 2 Gastroesophageal ref lux disease without esophagitis (K21.9) Diagnosis 3 Sphincter of Oddi dy sfunction (K83.4) Referral Organization [facility] Referring Provider [...] W/U Status Risk SNOMED Code Notes Problem Heart rate problem (R00.9) Active confirmed 543696933 Problem Primary hypertension (I10) Active confirmed 02778307 Problem 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) Active confirmed 250383326 Problem Atrophic gastritis without hemorrhage (K29.40) Active confirmed 90568249 Problem 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) Active confirmed 473037937 Problem COVID-19 (U07.1) Active confirmed 65615 9006 Problem Generalized postprandial abdominal pain (R10.84) Active confirmed 851151605 Problem Acute gastritis without hemorrhage, unspecified gastritis type (K29.00) Active confirmed 79876167 Problem Thyroid disorder screen (Z13.29) Active confirmed 100717639 Problem History of breast cancer (Z85.3) Active confirmed 571424928 Problem Hyponatremia (E87.1) Active confirmed 8 8661761 Problem Hypertension, unspecified type (I10) Active confirmed 09398560 Problem SOB (shortness of breath) (R06.02) Active confirmed 831017482 Problem Anxiety (F41.9) Active confirmed 975743 02 Problem Gastroesophageal reflux disease without esophagitis (K21.9) Active confirmed 937591673 Problem Early satiety (R68.81) Active confirmed 155600357 Problem Nausea (R11.0) Active confirmed 2634187 07 Problem Nicotine dependence, cigarettes, uncomplicated (F17.210) Active confirmed 05461879 Problem Mixed hyperlipidemia (E78.2) Active confirmed 774449237 VITAL SIGNS Heart Rate 73 /min 12/12/2022 Temperature 97.9 degrees Fahrenheit 12/12/2022 Respiratory Rate 18 /min 12/12/2022 Height-cm 165.1 cm 12/12/2022 Oximetry 96 % 12/12/2022 Blood pressure diastolic 70 mm Hg 12/12/2022 Weight-kg 66.13 kg 12/12/2022 Height 65 in 12/12/2022 Blood pressure systolic 120 mm Hg 12/12/2022 Weight 145.8 lbs 12/12/2022 BMI 24.26 kg/m2 12/12/2022 Encounters Encounter Location Date Provider Diagnosis [place] [address] [address] 01/22/2022 [place] [address] [address] 03/05/2022 [place] [address] [place] [address] 03/08/2022 [facility] [address] [place] [address] 03/22/2022 [facility] [address] [facility] [address] [place] [address] 03/28/2022 [facility] Gastroesophageal reflux disease without esophagitis K21.9 ; Acute gastritis without hemorrhage, unspecified gastritis type K29.00 and Nausea R11.[address] [facility] [address] [place] [address] 04/09/2022 [facility] [address] [facility] [place] [address] 04/16/2022 [facility] [address] [place] [address] 04/17/2022 [facility] [address] [place] [address] 04/19/2022 [facility] [address] [place] [address] 04/22/2022 [facility] [address] [place] [address] 04/22/2022 [facility] [address] [place] [address] 04/23/2022 [facility] [address] [place] [address] 07/16/2022 [facility] [address] [place] [address] 08/12/2022 [facility] [address] [facility] [address] [place] [address] 08/15/2022 [facility] [address] [place] [address] 08/27/2022 Clifford Deleon [facility] [address] [place] [address] 10/14/2022 Clifford Deleon [facility] [address] [place] [address] 11/29/2022 [facility] Nausea R11.[address] [facility] [address] [place] [address] 12/18/2022 [facility] [address] [place] [address] 01/01/2023 [facility] [address] [place] [address] 01/10/2023 Feliciano Dwyer Diarrhea, unspecifie d type R19.[address] [facility] [address] [place] [address] 01/13/2023 [facility] Nausea R11.[address] [facility] [address] [place] [address] 11/22/2022 [facility] Bronchitis J40 ; Wheezes R06.2 ; Primary hypertension I10 and Nicotine dependence, cigarettes, uncomplicated F17.[address] [facility] [address] [place] [address] 12/31/2022 [facility] [address] [place] [address] 04/30/2022 Pee[facility]e [facility] [address] [place] [address] 05/07/2022 [facility] [address] [place] [address] 05/07/2022 Peewee Villarreal [facility] [address] [place] [address] 05/13/2022 [facility] [address] [place] [address] 05/21/2022 Peewee Villarreal Gastroesophageal reflux disease without esophagitis K21.9 and Sphincter of Oddi dysfunction K83.4 [facility] [address] [place] [address], [place] [address] 05/29/2022 Clifford Deleon [facility] [address] [place] [address] 08/05/2022 Clifford Deleon SOB (shortness of breath) R06.02 ; Dyspnea on exertion R06.00 ; Palpitations R00.2 ; Cigarette nicotine dependence, uncomplicated F17.210 and Family history of coronary arteriosclerosis Z82.49 [facility] [address] [place] [address] 04/09/2022 Peewee Villarreal Generalized postprandial abdominal pain R10.84 and Early satiety R68.81 [facility] [address] [place] [address] 12/12/2022 Feliciano Dwyer Nausea and vomiting, unspecified vomiting type R11.2 and Depression, unspecified depression type F32.A [facility] [address] [place] [address] 10/31/2022 Feliciano Dwyer [facility] [address] [place] [address], [place] [address] 10/21/2022 Clifford Deleon [facility] [address] [place] [address] 04/16/2022 Mirta Carballo Nausea R11.0 ; Anxie ty F41.9 and Primary hypertension I10 [facility] [address] [place] [address] 04/22/2022 Mirta Carballo Anxiety F41.9 ; Depression, unspecified depression type F32.A ; Primary hypertension I10 ; Tachycardia R00.0 ; Nicotine dependence, cigarettes, uncomplicated F17.210 ; Mixed hyperlipidemia E78.2 ; Hyponatremia E87.1 and Thyroid disorder screen Z13.29 [facility] [address] [place] [address], [place] [address] 09/16/2022 Clifford Deleon [facility] [address] [place] [address], [place] [address] 08/22/2022 [facility] [address] [place] [address], [place] [address] 08/27/2022 Clifford Deleon [facility] [address] [place] [address], [place] [address] 08/12/2022 Clifford Deleon Palpitations R00.2 ASSESSMENTS Encounter [...] vomiting, unspecified vomiting type (ICD-10 - R11.2) 01/10/2023 Diarrhea, unspecifie d type (ICD-10 - [...] box and take this to the nearest [facility] dropbox. We will contact them with results [...] performed by BLADIMIR Brower to [facility], 22 guage needle, not enough blood obtained, Pt tolerated well, bleeding controlled with light dressing. Lab sent to [facility] via piped buttonhole machine operator. Venipuncture: Performed by: Lemuel GARRISON Attempts: x1 Location: [facility] Needle gauge: 22G Patient tolerated well. [...] Test Test Name Order Date Giardia/Cryptosporidium Screen 70731, 87 329 01/10/2023 Calprotectin Fecal 51737 01/10/2023 C Diff Toxin EIA--04813 01/10/2023 Electrocardiogram (EKG) - 08083 08/06/[address] Cardiac Scoring Diagnostic-64920 04/2022 Next Appt Details Provider Name:Feliciano Velazquez Dwyer , 01/23/2023 04:30:00 PM, [address], [place], [address], Insurance Providers Payer Name Payer Address Payer Phone Subscriber Number Group Number Insured Name Patient Relationship to Insured Coverage Start Date Coverage End Date [employer] [address] [place] [phone] [id number] Zhane Denise Self - patient is the insured MEDICATIONS ADMINISTERED Medication Instructions Date of Administration Dosage Notes DEPO-Medrol 10/19/2021 40 mg [facility] 14374-143 3-1 pt tolerated well/instructed to wait 20 min dexAMETHasone 10/19/2021 4 mg ndc 92080-9 573-1 pt tolerated well/instructed pt to wait 20 min MEDICAL (GENERAL) HISTORY Medical History History ICD Code breast cancer right heartburn High Blood Pressure COVID VACCINATION X2 COVID SEPTEMBER 2021 LONG COVID Surgical History Surgery Date(Month/Year) cholecystectomy breast reconstruction dilation and curettage breast biopsy left 2020 Hospitalization History Reason Date(Month/Year) see surgical history [facility]22 childbirth
[2023-01-20] MEDS: ondansetron 2 mg/ML SDV 2 mL 8 MG IVP (16:18)
[2023-01-20] MEDS: sodium chloride 0.9% 1,000 ML 999 ML IV (16:18)
[2023-01-20 17:29] VITALS: BP 164/81; PULSE 80; RESP 16; TEMP 36.4; O2SAT 93
[2023-01-22 15:17] VITALS: BP 119/68; PULSE 72; RESP 18; TEMP 36.3; O2SAT 98
[2023-01-22] MEDS: sodium chloride 0.9% 1,000 ML 999 ML IV (15:35)
[2023-01-22 16:55] VITALS: BP 105/58; PULSE 76; RESP 16; O2SAT 91
[2023-01-29] MEDS: sodium chloride 0.9% 1,000 ML 999 ML IV (15:18)
[2023-01-29 15:31] VITALS: BP 147/89; PULSE 77; RESP 16; TEMP 36.3; O2SAT 98
[2023-01-29 16:35] VITALS: BP 152/79; PULSE 84; RESP 18; TEMP 37.2; O2SAT 98
--- OUTSIDE RECORDS SUMMARY | 2023-02-03 14:19 | XMS_ITS | Patient Health Record ---
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 Role Phone Mirta Carballo Primary Care Provider Feliciano Dwyer Unavailable [phone] MIRNAMIRTA Unavailable Unavailable Clifford Deleon Unavailable [phone] Peewee Villarreal Unavailable [phone] ALLERGIES Allergen (clinical drug ingredient) Drug/Non Drug Allergy documented on EMR Reaction Allergy Type Onset Date Status sucralfate Carafate Unknown Drug Allergy Active Penicillin Unknown Drug Allergy Active vancomycin Vancomycin Unknown Drug Allergy Activ e RESULTS Component Value Reference Range Notes MRI Abdomen MRCP w/o Cont-74 181 Reviewed date:05/20/2022 01:42:46 PM Interpretation: Performing Lab: Notes/Report: [email or web address]=[id number]=iSite NM Gastric Emptying Study-78 264 Reviewed date:04/24/2022 09:34:00 AM Interpretation: Performing Lab: Notes/Report: [id number]&org=iSite NM Gastric Emptying Study-78 264 Reviewed date:04/24/2022 09:33:54 AM Interpretation: Performing Lab: Notes/Report: See Below For Report NM Gastric Emptying Study Diagnosis Description: Generalized abdominal pain Comprehensive Metabolic Pane l 24028 Reviewed date:04/22/2022 09:36:53 PM Interpretation: Performing Lab: Notes/Report: Diagnosis Description: Essential (primary) hypertension Glucose Serum 130 71-110 MG/DL BUN 9 7-21 MG/DL Creat .69 .51-1.17 MG/DL Q-ovppfo-f-benzoquinon e imine (NAPQI) is a metabolite of [...] 286 280-300 MOSM/KG CBC w\ Auto Diff 30729 Reviewed date:04/22/2022 09:37:08 PM Interpretation: Performing Lab: [...] 42.0-75.0 % Lymph Auto% 22.8 20.0-51.0 % Rooks Auto% 6.9 1.7-9.3 % Eos Auto% 1.9 .0-6.0 % Baso Auto% 0.5 0.0-1.0 % Imm Gran% .1 .0-.4 % Neutro Abs 5.43 .80-7.70 Lymph Abs 1.82 .10-4.10 Rooks Abs .55 .20-1.00 Eos Abs .15 .00-.40 Baso Abs .04 .00-.10 Imm Gran Abs .01 .00-.10 NRBC# .00 .00-.20 X10'3 NRBC% .00 .00-.20 /100 intact WBC's Thyroxine (T4) 71783 Reviewed date:04/22/2022 09:37:20 PM Interpretation: Performing Lab: Notes/Report: Diagnosis Description: Encounter for screening for other suspected endocrine disorder ThyroxinT4 10.4 4.8-13.9 Lipid Panel Reflex DLDL 8006 1, 09105 Reviewed date:04/22/2022 09:37:36 PM Interpretation: Performing Lab: [...] See DLDL result. Thyroid Stimulating Hormone (TSH) 64574 Reviewed date:04/22/2022 09:37:47 PM Interpretation: Performing Lab: Notes/Report: Diagnosis Description: Encounter for screening for other suspected endocrine disorder TSH 1.372 .358-3.740 MlU/ML MRI Abdomen MRCP w/o Cont-74 181 Reviewed date:05/20/2022 12:07:34 PM Interpretation: Performing Lab: Notes/Report: See Below For Report MRI Abdomen MRCP w/o Cont Echo Complete EC-[id number] Reviewed date:09/20/2022 08:42:49 AM Interpretation: Performing Lab: Notes/Report: [id number]&org=iSite Holter 7 day-41319,12853 Reviewed date:08/05/2022 05:06:46 PM Interpretation: Performing Lab: Notes/Report: Holter 7 day-07688,40707 Reviewed date:08/05/2022 05:06:46 PM Interpretation: Performing Lab: Notes/Report: Holter 7 day-43109,71434 Reviewed date:08/05/2022 05:06:46 PM Interpretation: Performing Lab: Notes/Report: Schedule Confirmation Reviewed date:08/20/2022 10:19:54 AM Interpretation: Performing Lab: Notes/Report: CT Cardiac Scoring Diagnostic Schedule Confirmation Reviewed date:10/09/2022 08:03:18 AM Interpretation: Performing Lab: Notes/Report: CT Cardiac Scoring Diagnostic Echo Complete [id number] Reviewed date:10/22/2022 07:59:52 AM Interpretation: Performing Lab: Notes/Report: Cardiopulmonary Services Name: ZHANE DENISE Study Date: 09/16/2022 : 1960 Patient Location: [facility] Age: 62 yrs Gender: Female HR: [...] CT Cardiac Scoring Diagnostic C Diff Toxin EIA--45400 Reviewed date:01/14/2023 06:26:07 PM Interpretation: Performing Lab: Notes/Report: CDiff Toxin EIA ZHANE Ascencio CDiff Toxin EIA CDiff Toxin EIA t: CDiff Toxin EIA CDiff Toxin EIA [facility] [id number] CDiff Toxin EIA n: CDiff Toxin EIA [...] based on clinical symptoms. Giardia/Cryptosporidium Scre [place] 13574, 32005 Reviewed date:01/14/2023 06:26:37 PM Interpretation: Performing Lab: Notes/Report: Giardia/Cryptosporidium Screen Patien DRYEZHANE Giardia/Cryptosporidium Screen Giardia/Cryptosporidium Screen t: Giardia/Cryptosporidium Screen Giardia/Cryptosporidium Screen [facility] [id number] Giardia/Cryptosporidium Screen n: Giardia/Cryptosporidium Screen Microbiology Giardia/Cryptosporidium [...] O1: Giardia/Cryptosporidi um Screen (Giardia/Cryptosporid ium Screen 08258, 17055) Giardia/Cryptosporidium Screen Diagnosis Description: Diarrhea, unspecified Calprotectin Fecal 24605 Reviewed date:01/14/2023 06:26:46 PM Interpretation: Performing Lab: Notes/Report: Diagnosis Description: Diarrhea, unspecified Calprotectin Fecal 185 <=49 REFERENCE INTERVAL: Calprotectin, Fecal by Immunoassay Less than 50 ug/g.........Normal 50-120 ug/g...............Bord kendal elevated, test should be re-evaluated in 4-6 weeks. 121 ug/g or greater.......Elevated Performed By: [employer] [address] [place] [address] [employer]: Lm Casey MD, PhD CLIA Number: [id number] REASON FOR REFERRAL Reason gastritis Diagnosis 1 Gastroesophageal ref lux disease without esophagitis (K21.9) Referral Organization [facility] Referring Provider First Name Mirta Referring Provider [...] (shortness of br eath) (R06.02) Referral Organization [facility] Referring Provider First Name Mirta Referring Provider Last Name Carballo Referring Provider Speciality Nurse Salma birch Referred Organization [facility] Referred Provider Clifford Deleon Referred Address [address] [place] [address],[place],[address], Referred Provider Specialty Cardiology Referral Priority Routine Reason tachycardia Diagnosis 1 Tachycardia (R00.0) Diagnosis 2 Primary hypertension (I10) Diagnosis 3 Nicotine dependence, cigarettes, uncomplicated (F17.210) Referral Organization [facility] Referring Provider First Name Mirta Referring Provider Last Name Carballo Referring Provider Speciality Nurse Salma birch Referred Provider [facility] Referred Provider Specialty Cardiology General Notes Elizabet Oreilly 04/07 10:21:47 AM >Per chart patient has apt on 05/29/[address] Deleon at [facility] Elizabet Oreilly 08/09/2022 04:31:40 PM >See referral note Referral Priority Routine Referral Appointment Date 08/05/2022 Reason Eval and Treat Diagnosis 1 Atrophic gastritis w ithout hemorrhage (K29.40) Diagnosis 2 Gastroesophageal ref lux disease without esophagitis (K21.9) Diagnosis 3 Sphincter of Oddi dy sfunction (K83.4) Referral Organization [facility] Referring Provider First Name Tony medley Referring Provider Last Name Phil Referring Provider Speciality Internal M edicine Referred Provider Dick Gutierrez Referred Provider Specialty Internal Med icine Referral Priority Routine MEDICATIONS Medication SIG (Take, Route, Frequency, Duration) Notes Start Date End Date Status traZODone HCl 100 MG TAKE 1 TO 2 TABLETS BY MOUTH ONCE DAILY NEEDED FOR SLEEP Oral Once a day for 30 days Active Diphenoxylate-Atropine 2.5-0.025 MG 1 tab Orally Four times a day prn diarrhea for 30 days 01/02/2023 Active Metoprolol Tartrate 50 MG TAKE 2 TABLETS BY MOUTH TWICE DAILY WITH FOOD for 90 Active Ondansetron 4 MG DISSOLVE 1 TABLET IN MOUTH EVERY 4 HOURS NEEDED FOR NAUSEA FOR 30 DAYS for 30 Active Reglan 10 MG 1 tablet Orally Once Not-Taking ALPRAZolam 0.5 MG TAKE 1/2 TO 1 (ONE-HALF TO ONE) TABLET BY MOUTH 4 TIMES DAILY NEEDED FOR ANXIETY FOR 30 DAYS *REPLACES LORAZEPAM* for 30 01/21/2023 Active Promethegan 25 MG _insert ONE SUPPOSITORY rectally EVERY 6 HOURS NEEDED FOR NAUSEA AND VOMITING Diagnosis Unavailable Rectal for 3 Active Metoclopramide HCl 10 MG Oral for 30 Days Not-Taking Pantoprazole Sodium 40 MG Take 1 tablet by mouth twice daily for 30 Not-Taking Sertraline HCl 50 MG 1 tablet Orally Onc e a day Active Dicyclomine HCl 20 MG 1 tablet Orally Th ree times a day Active amLODIPine Besylate 5 MG Take 1 tablet b y mouth once daily for 30 Active Morphine Sulfate 30 MG 1 tablet [...] all Feeling tired or having little energy Not at all Poor appetite or overeating Not at all Feeling bad about yourself, or that you [...] some way Not at all Total Score 0 PROBLEMS Problem Type ICD Code Onset Dates Problem Status W/U Status Risk SNOMED Code Notes Problem Mixed hyperlipidemia (E78.2) Active confirmed 798316856 Problem Nicotine dependence, cigarettes, uncomplicated (F17.210) Active confirmed 36978752 Problem Nausea (R11.0) Active confirmed 2049555 07 Problem Early satiety (R68.81) Active confirmed 249892515 Problem Gastroesophageal reflux disease without esophagitis (K21.9) Active confirmed 309868316 Problem Anxiety (F41.9) Active confirmed 815720 02 Problem SOB (shortness of breath) (R06.02) Active confirmed 954015472 Problem Hypertension, unspecified type (I10) Active confirmed 00251236 Problem Hyponatremia (E87.1) Active confirmed 60471503 Problem History of breast cancer (Z85.3) Active confirmed 871369262 Problem History of Helicobacter pylori infection (Z86.19) Active confirmed 63929442589853672 Problem Thyroid disorder screen (Z13.29) Active confirmed 853746535 Problem Acute gastritis without hemorrhage, unspecified gastritis type (K29.00) Active confirmed 79164909 Problem Generalized postprandial abdominal pain (R10.84) Active confirmed 159288675 Problem COVID-19 (U07.1) Active confirmed 15745 9006 Problem 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) Active confirmed 337506167 Problem Atrophic gastritis without hemorrhage (K29.40) Active confirmed 21515994 Problem 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) Active confirmed 388568807 Problem Primary hypertension (I10) Active confirmed 03031801 Problem Heart rate problem (R00.9) Active confirmed 317742376 VITAL SIGNS Heart Rate 85 /min 01/31/2023 Temperature 97.3 degrees Fahrenheit 01/31/2023 Respiratory Rate 18 /min 01/23/2023 Blood pressure diastolic 90 mm Hg 01/31/2023 Oximetry 93 % 01/31/2023 Height-cm 165.1 cm 01/31/2023 Weight-kg 61.23 kg 01/31/2023 Height 65 in 01/31/2023 Blood pressure systolic 173 mm Hg 01/31/2023 Weight 135 lbs 01/31/2023 BMI 22.46 kg/m2 01/31/2023 Encounters Encounter Location Date Provider Diagnosis [facility] [address] [place] [address] 03/05/2022 [facility] [address] [place] [address] 03/08/2022 [facility] [address] [place] [address] 03/22/2022 [facility] [address] [place] [address] 03/28/2022 [facility] Gastroesophageal reflux disease without esophagitis K21.9 ; Acute gastritis without hemorrhage, unspecified gastritis type K29.00 and Nausea R11.0 [facility] [address] [facility] [address] [place] [address] 04/09/2022 [facility] [address] [place] [address] 04/16/2022 [facility] [address] [facility] [address] [place] [address] 04/17/2022 [facility] [address] [place] [address] 04/19/2022 [facility] [address] [place] [address] 04/22/2022 [facility] [address] [facility] [place] [address] 04/22/2022 [facility] [address] [place] [address] 04/23/2022 [facility] [address] [place] [address] 07/16/2022 [facility] [address] [place] [address] 08/12/2022 [facility] [address] [place] [address] 08/15/2022 [facility] [address] [place] [address] 08/27/2022 [facility] [address] [place] [address] 10/14/2022 [facility] [address] [facility] [address] [place] [address] 11/29/2022 [facility] Nausea R11.0 [facility] [address] [place] [address] 12/18/2022 [facility] [address] [place] [address] 01/10/2023 Feliciano Dwyer Diarrhea, unspecifie d type R19.7 [facility] [address] [place] [address] 01/01/2023 [facility] [address] [place] [address] 01/13/2023 [facility] Nausea R11.0 [facility] [address] [place] [address] 01/30/2023 Feliciano Dwyer History of Helicobacter pylori infection Z86.19 [facility] [address] [place] [address] 02/03/2023 [facility] [address] [place] [address] 04/30/2022 Peewee Villarreal [facility] [address] [place] [address] 05/07/2022 [facility] [address] [place] [address] 05/13/2022 [facility] [address] [facility] [address] 05/07/2022 Peewee Villarreal [facility] [address] [facility] [address] 05/21/2022 Peewee Villarreal Gastroesophageal reflux disease without esophagitis K21.9 and Sphincter of Oddi dysfunction K83.4 [facility] [address] [place] [address] 11/22/2022 [facility] Bronchitis J40 ; Wheezes R06.2 ; Primary hypertension I10 and Nicotine dependence, cigarettes, uncomplicated F17.210 [facility] [address] [place] [address] 12/31/2022 [facility] [address] [place] [address] 01/31/2023 [facility] Nausea R11.0 ; Gastroesophageal reflux disease without esophagitis K21.9 ; Epigastric pain R10.13 and Anxiety F41.9 [facility] [address] [place] [address] 04/09/2022 Peewee Villarreal Generalized postprandial abdominal pain R10.84 and Early satiety R68.81 [facility] [address] [place] [address] 05/29/2022 Clifford Deleon [facility] [address] [place] [address], [place] [address] 08/05/2022 Clifford Adrienne SOB (shortness of breath) R06.02 ; Dyspnea on exertion R06.00 ; Palpitations R00.2 ; Cigarette nicotine dependence, uncomplicated F17.210 and Family history of coronary arteriosclerosis Z82.49 [facility] [address] [place] [address] 10/31/2022 Feliciano Dwyer [facility] [address] [place] [address] 12/12/2022 Feliciano Dwyer Nausea and vomiting, unspecified vomiting type R11.2 and Depression, unspecified depression type F32.A [facility] [address] [place] [address], [place] [address] 10/21/2022 Clifford Deleon [facility] [address] [place] [address] 01/23/2023 Feliciano Dwyer [facility] [address] [place] [address] 01/23/2023 Feliciano Dwyer Nausea R11.0 ; Epigastric pain R10.13 and Diarrhea, unspecified type R19.7 [facility] [address] [place] [address] 04/16/2022 Mirta Carballo Nausea R11.0 ; Anxie ty F41.9 and Primary hypertension I10 [facility] [address] [place] [address] 04/22/2022 Mirta Carballo Anxiety F41.9 ; Depression, unspecified depression type F32.A ; Primary hypertension I10 ; Tachycardia R00.0 ; Nicotine dependence, cigarettes, uncomplicated F17.210 ; Mixed hyperlipidemia E78.2 ; Hyponatremia E87.1 and Thyroid disorder screen Z13.29 [facility] [address] [place] [address] 08/22/2022 Clifford Deleon [facility] [address] [place] [address] 08/27/2022 Clifford Deleon [address] [place] [address] 09/16/2022 Clifford Deleon [facility] [address] [place] [address], [place] [address] 08/12/2022 Clifford Deleon Palpitations R00.2 ASSESSMENTS Encounter [...] vomiting, unspecified vomiting type (ICD-10 - R11.2) 11/29/2022 Nausea (ICD-10 - R11.0) 01/10/2023 Diarrhea, unspecifie d type (ICD-10 - R19.7) 01/13/2023 Nausea (ICD-10 - R11.0) 01/23/2023 Epigastric pain (ICD-10 - R10.13) 01/23/2023 Nausea (ICD-10 - R11.0) 11/22/2022 Bronchitis (ICD-10 - J40) levoquin 11/22/2022 Wheezes (ICD-10 - R06.2) albuteral hfa (has medrol dose pack 01/31/2023 Nausea (ICD-10 - R11.0) zofran; phenergan prn as directed 01/31/2023 Gastroesophageal reflux disease without esophagitis (ICD-10 - K21.9) gastro as scheduled 01/30/2023 History of Helicobacter pylori infection (ICD-10 - Z86.19) 11/22/2022 Primary hypertension (ICD-10 - I10) resume metoprolol bid every day continue amlodipine monitor bp 01/23/2023 Diarrhea, unspecifie d type (ICD-10 - R19.7) 01/31/2023 Epigastric pain (ICD-10 - R10.13) toradol 60 mg im 04/22/2022 Primary hypertension (ICD-10 - I10) continue [...] box and take this to the nearest [employer] dropbox. We will contact them with results once the report is received. 03/28/2022 Nausea (ICD-10 - R11.0) 04/16/2022 Primary hypertension (ICD-10 - I10) 04/22/2022 Tachycardia (ICD-10 - R00.0) discussed with patient er if worsens 08/05/2022 Cigarette nicotine dependence, uncomplicated (ICD-10 - F17.210) 11/22/2022 Nicotine dependence, cigarettes, uncomplicated (ICD-10 - F17.210) 01/31/2023 Anxiety (ICD-10 - F41.9) xanax prn as directed 08/05/2022 Family history of coronary arteriosclerosis (ICD-10 - Z82.49) 04/22/2022 Nicotine dependence, cigarettes, uncomplicated (ICD-10 - F17.210) discussed with patient tobacco abuse; risks 04/22/2022 Mixed hyperlipidemia (ICD-10 - E78.2) lipids 04/22/2022 Hyponatremia (ICD-10 - E87.1) cmp 04/22/2022 Thyroid disorder screen (ICD-10 - Z13.29) 04/22/2022 Other Venipuncture performed by BLADIMIR Brower to [facility], 22 guage needle, not enough blood obtained, Pt tolerated well, bleeding controlled with light dressing. Lab sent to [facility] via lathe puller. Venipuncture: Performed by: Lemuel GARRISON Attempts: x1 Location: [facility] Needle gauge: 22G Patient tolerated well. 01/31/2023 Other Questions asked and answered; discharged to home. 08/05/2022 Other We will obtain an echocardiogram, [...] Test Test Name Order Date Giardia/Cryptosporidium Screen 70313, 87 329 01/10/2023 Calprotectin Fecal 16503 01/10/2023 C Diff Toxin EIA--05691 01/10/2023 Electrocardiogram (EKG) - 32824 08/06/[address] Cardiac Scoring Diagnostic-87708 04/2022 Future Test Test Name Order Date H Pylori Breath Test--90810 01/30/2023 Insurance Providers Payer Name Payer Address Payer Phone Subscriber Number Group Number Insured Name Patient Relationship to Insured Coverage Start Date Coverage End Date [employer] [address] [place] [phone] [id number] Zhane Denise Self - patient is the insured MEDICATIONS ADMINISTERED Medication Instructions Date of Administration Dosage Notes DEPO-Medrol 10/19/2021 40 mg [facility] [phone] 3-1 pt tolerated well/instructed to wait 20 min dexAMETHasone 10/19/2021 4 mg [facility] 65551-7 573-1 pt tolerated well/instructed pt to wait 20 min Ketorolac Tromethamine 01/31/2023 60 mg formerly named [facility] [id number] pt tolerated well/instructed to wait 20 min MEDICAL (GENERAL) HISTORY Medical History History ICD Code breast cancer right heartburn High Blood Pressure COVID VACCINATION X2 COVID SEPTEMBER 2021 LONG COVID Surgical History Surgery Date(Month/Year) cholecystectomy breast reconstruction breast biopsy left 2020 dilation and curettage Hospitalization History Reason Date(Month/Year) [facility] 07/2022 see surgical history childbirth
[2023-02-03 15:15] VITALS: BP 165/84; PULSE 86; RESP 16; O2SAT 91
[2023-02-03] MEDS: sodium chloride 0.9% 1,000 ML 999 ML IV (15:32)
== END 2023-02-04 23:59 | disposition home or self-care (01) ==
PROVIDERS: Nurse Practitioner Family; PCP Nurse Practitioner Family; Visit Provider Internal Medicine Medical Oncology
DX: R10.9 Unspecified abdominal pain (principal); Z85.3 Personal history of malignant neoplasm of breast
CPT/HCPCS: 74177; 80053; 84443; 85025; 87338; 96360; 96361; 96365; 96367; 96375; J1100; J2060; J2405; J3480; J3490; J7030; J7050; Q9967

== ENCOUNTER 2023-02-20 14:00 | Oncology outpatient (recurring) (ONCR) | payer OTHER, SELFPAY ==
--- OUTSIDE RECORDS SUMMARY | 2023-02-06 14:00 | XMS_ITS | Patient Health Record ---
Author Name Unknown Organization [facility] Address [address] [place] [address] Care Team Providers Care Grid Caster Name Role Phone Mirta Carballo Primary Care Provider Feliciano Dwyer Unavailable [phone] MIRNAMIRTA Unavailable Unavailable Clifford Deleon Unavailable [phone] Peewee Villarreal Unavailable ALLERGIES Allergen (clinical drug ingredient) Drug/Non Drug Allergy documented on EMR Reaction Allergy Type Onset Date Status sucralfate Carafate Unknown Drug Allergy Active Penicillin Unknown Drug Allergy Active vancomycin Vancomycin Unknown Drug Allergy Activ e RESULTS Component Value Reference Range Notes MRI Abdomen MRCP w/o Cont-74 181 Reviewed date:05/20/2022 01:42:46 PM Interpretation: Performing Lab: Notes/Report: [id number]&org=iSite NM Gastric Emptying Study-78 264 Reviewed date:04/24/2022 09:34:00 AM Interpretation: Performing Lab: Notes/Report: [id number]&org=iSite NM Gastric Emptying Study-78 264 Reviewed date:04/24/2022 09:33:54 AM Interpretation: Performing Lab: Notes/Report: See Below For Report NM Gastric Emptying Study Diagnosis Description: Generalized abdominal pain Comprehensive Metabolic Pane l 04727 Reviewed date:04/22/2022 09:36:53 PM Interpretation: Performing Lab: Notes/Report: Diagnosis Description: Essential (primary) hypertension Glucose Serum 130 71-110 MG/DL BUN 9 7-21 MG/DL Creat .69 .51-1.17 MG/DL Q-qcfxxe-b-benzoquinon e imine (NAPQI) is a metabolite of [...] 286 280-300 MOSM/KG CBC w\ Auto Diff 93214 Reviewed date:04/22/2022 09:37:08 PM Interpretation: Performing Lab: [...] 42.0-75.0 % Lymph Auto% 22.8 20.0-51.0 % Surry Auto% 6.9 1.7-9.3 % Eos Auto% 1.9 .0-6.0 % Baso Auto% 0.5 0.0-1.0 % Imm Gran% .1 .0-.4 % Neutro Abs 5.43 .80-7.70 Lymph Abs 1.82 .10-4.10 Surry Abs .55 .20-1.00 Eos Abs .15 .00-.40 Baso Abs .04 .00-.10 Imm Gran Abs .01 .00-.10 NRBC# .00 .00-.20 X10'3 NRBC% .00 .00-.20 /100 intact WBC's Thyroxine (T4) 29401 Reviewed date:04/22/2022 09:37:20 PM Interpretation: Performing Lab: Notes/Report: Diagnosis Description: Encounter for screening for other suspected endocrine disorder ThyroxinT4 10.4 4.8-13.9 Lipid Panel Reflex DLDL 8006 1, 79917 Reviewed date:04/22/2022 09:37:36 PM Interpretation: Performing Lab: [...] See DLDL result. Thyroid Stimulating Hormone (TSH) 55037 Reviewed date:04/22/2022 09:37:47 PM Interpretation: Performing Lab: Notes/Report: Diagnosis Description: Encounter for screening for other suspected endocrine disorder TSH 1.372 .358-3.740 MlU/ML MRI Abdomen MRCP w/o Cont-74 181 Reviewed date:05/20/2022 12:07:34 PM Interpretation: Performing Lab: Notes/Report: See Below For Report MRI Abdomen MRCP w/o Cont Echo Complete [id number] Reviewed date:09/20/2022 08:42:49 AM Interpretation: Performing Lab: Notes/Report: dhv=[id number]&org=iSite Holter 7 day-98150,26475 Reviewed date:08/05/2022 05:06:46 PM Interpretation: Performing Lab: Notes/Report: Holter 7 day-68316,19436 Reviewed date:08/05/2022 05:06:46 PM Interpretation: Performing Lab: Notes/Report: Holter 7 day-16313,93121 Reviewed date:08/05/2022 05:06:46 PM Interpretation: Performing Lab: Notes/Report: Schedule Confirmation Reviewed date:08/20/2022 10:19:54 AM Interpretation: Performing Lab: Notes/Report: CT Cardiac Scoring Diagnostic Schedule Confirmation Reviewed date:10/09/2022 08:03:18 AM Interpretation: Performing Lab: Notes/Report: CT Cardiac Scoring Diagnostic Echo Complete [id number] Reviewed date:10/22/2022 07:59:52 AM Interpretation: Performing Lab: Notes/Report: Cardiopulmonary Services Name: ZHANE DENISE Study Date: 09/16/2022 : 1960 Patient Location: [facility] Age: 62 yrs Gender: Female HR: 92 [...] CT Cardiac Scoring Diagnostic C Diff Toxin EIA--39223 Reviewed date:01/14/2023 06:26:07 PM Interpretation: Performing Lab: Notes/Report: CDiff Toxin EIA ZHANE Ascencio CDiff Toxin EIA CDiff Toxin EIA t: CDiff Toxin EIA CDiff Toxin EIA [facility] [id number] CDiff Toxin EIA n: CDiff Toxin EIA [...] based on clinical symptoms. Giard[place] 278[address], 08897 Reviewed date:01/14/2023 06:26:37 PM Interpretation: Performing Lab: Notes/Report: Giardia/Cryptosporidium Screen Patien DRYEZHANE Giardia/Cryptosporidium Screen Giardia/Cryptosporidium Screen t: Giardia/Cryptosporidium Screen Giardia/Cryptosporidium Screen [facility] [id number] Giardia/Cryptosporidium Screen n: Giardia/Cryptosporidium Screen Microbiology Giardia/Cryptosporidium [...] O1: Giardia/Cryptosporidi um Screen (Giardia/Cryptosporid ium Screen 06587, 90207) Giardia/Cryptosporidium Screen Diagnosis Description: Diarrhea, unspecified Calprotectin Fecal 28327 Reviewed date:01/14/2023 06:26:46 PM Interpretation: Performing Lab: Notes/Report: Diagnosis Description: Diarrhea, unspecified Calprotectin Fecal 185 <=49 REFERENCE INTERVAL: Calprotectin, Fecal by Immunoassay Less than 50 ug/g.........Normal 50-120 ug/g...............Bord kendal elevated, test should be re-evaluated in 4-6 weeks. 121 ug/g or greater.......Elevated Performed By: [facility] [address] [place] [id number] Tent Assembler: Lm Casey MD, PhD CLIA Number: [id number] REASON FOR REFERRAL Reason gastritis Diagnosis 1 Gastroesophageal ref lux disease without esophagitis (K21.9) Referral Organization [facility] Referring Provider First Name Mirta Referring [...] (shortness of br eath) (R06.02) Referral Organization [facility] Referring Provider First Name Mirta Referring Provider Last Name Carballo Referring Provider Speciality Nurse Salma birch Referred Organization [facility] Referred Provider Clifford Deleon Referred Address [address] [place] [address],[place],[id number], Referred Provider Specialty Cardiology Referral Priority Routine Reason tachycardia Diagnosis 1 Tachycardia (R00.0) Diagnosis 2 Primary hypertension (I10) Diagnosis 3 Nicotine dependence, cigarettes, uncomplicated (F17.210) Referral Organization [facility] Referring Provider First Name Mirta Referring Provider Last Name Carballo Referring Provider Speciality Nurse Salma birch Referred Provider [facility] Referred Provider Specialty Cardiology General Notes Elizabet Oreilly 04/07 10:21:47 AM >Per chart patient has apt on 05/29/[address] Deleon at [facility] Elizabet Oreilly 08/09/2022 04:31:40 PM >See referral note Referral Priority Routine Referral Appointment Date 08/05/2022 Reason Eval and Treat Diagnosis 1 Atrophic gastritis w ithout hemorrhage (K29.40) Diagnosis 2 Gastroesophageal ref lux disease without esophagitis (K21.9) Diagnosis 3 Sphincter of Oddi dy sfunction (K83.4) Referral Organization [facility] Referring Provider [...] Notes Problem Mixed hyperlipidemia (E78.2) Active confirmed 978863184 Problem Nicotine dependence, cigarettes, uncomplicated (F17.210) Active confirmed 00120495 Problem Nausea (R11.0) Active confirmed 3550618 07 Problem Early satiety (R68.81) Active confirmed 786693879 Problem Gastroesophageal reflux disease without esophagitis (K21.9) Active confirmed 513200304 Problem Anxiety (F41.9) Active confirmed 892617 02 Problem SOB (shortness of breath) (R06.02) Active confirmed 535589487 Problem Hypertension, unspecified type (I10) Active confirmed 21430614 Problem Hyponatremia (E87.1) Active confirmed 74566262 Problem History of breast cancer (Z85.3) Active confirmed 708118584 Problem History of Helicobacter pylori infection (Z86.19) Active confirmed 14894630993160003 Problem Thyroid disorder screen (Z13.29) Active confirmed 862928935 Problem Acute gastritis without hemorrhage, unspecified gastritis type (K29.00) Active confirmed 33671857 Problem Generalized postprandial abdominal pain (R10.84) Active confirmed 499213957 Problem COVID-19 (U07.1) Active confirmed 41253 9006 Problem 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) Active confirmed 613089867 Problem Atrophic gastritis without hemorrhage (K29.40) Active confirmed 51016261 Problem 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) Active confirmed 468578430 Problem Primary hypertension (I10) Active confirmed 62931910 Problem Heart rate problem (R00.9) Active confirmed 375289153 VITAL SIGNS Heart Rate 85 /min 01/31/2023 Temperature 97.3 degrees Fahrenheit 01/31/2023 Respiratory Rate 18 /min 01/23/2023 Height-cm 165.1 cm 01/31/2023 Oximetry 93 % 01/31/2023 Blood pressure diastolic 90 mm Hg 01/31/2023 Weight-kg 61.23 kg 01/31/2023 Height 65 in 01/31/2023 Blood pressure systolic 173 mm Hg 01/31/2023 Weight 135 lbs 01/31/2023 BMI 22.46 kg/m2 01/31/2023 Encounters Encounter Location Date Provider Diagnosis [facility] [address] [place] [address] 03/05/2022 [facility] [address] [place] [address] 03/08/2022 [facility] [address] [place] [address] 03/22/2022 [facility] [address] [place] [address] 03/28/2022 [facility] Gastroesophageal reflux disease without esophagitis K21.9 ; Acute gastritis without hemorrhage, unspecified gastritis type K29.00 and Nausea R11.0 [facility] [address] [facility] [address] [place] [address] 04/09/2022 [facility] [address] [facility] [place] [address] 04/16/2022 [facility] [address] [place] [address] 04/17/2022 [facility] [address] [place] [address] 04/19/2022 [facility] [address] [place] [address] 04/22/2022 [facility] [address] [facility] [place] [address] 04/22/2022 [facility] [address] [facility] [address] [place] [address] 04/23/2022 [facility] [address] [facility] [address] [place] [address] 07/16/2022 [facility] [address] [place] [address] 08/12/2022 [facility] [address] [place] [address] 08/15/2022 [facility] [address] [place] [address] 08/27/2022 [facility] [address] [place] [address] 10/14/2022 [facility] [address] [facility] [address] [place] [address] 11/29/2022 [facility] Nausea R11.0 [facility] [address] [place] [address] 12/18/2022 [facility] [address] [place] [address] 01/01/2023 [facility] [address] [place] [address] 01/10/2023 Feliciano Dwyer Diarrhea, unspecifie d type R19.7 [facility] [address] [place] [address] 01/13/2023 [facility] Nausea R11.0 [facility] [address] [place] [address] 01/30/2023 Feliciano Dwyer History of Helicobacter pylori infection Z86.19 [facility] Office [address] [place] [address] 02/03/2023 [facility] [address] [place] [address] 11/22/2022 [facility] Bronchitis J40 ; Wheezes R06.2 ; Primary hypertension I10 and Nicotine dependence, cigarettes, uncomplicated F17.210 [facility] [address] [place] [address] 01/31/2023 [facility] Nausea R11.0 ; Epigastric pain R10.13 ; Anxiety F41.9 and Gastroesophageal reflux disease without esophagitis K21.9 [facility] [address] [place] [address] 12/31/2022 [facility] [address] [place] [address] 04/30/2022 Peewee Villarreal [facility] [address] [place] [address] 05/07/2022 [facility] [address] [place] [address] 05/07/2022 Peewee Villarreal [facility] [address] [place] [address] 05/13/2022 [facility] [address] [place] [address] 05/21/2022 Peewee Villarreal Gastroesophageal reflux disease without esophagitis K21.9 and Sphincter of Oddi dysfunction K83.4 [facility] [address] [place] [address] 05/29/2022 Clifford Deleon [facility] [address] [place] [address] 08/05/2022 Clifford Adrienne SOB (shortness of breath) R06.02 ; Dyspnea on exertion R06.00 ; Palpitations R00.2 ; Cigarette nicotine dependence, uncomplicated F17.210 and Family history of coronary arteriosclerosis Z82.49 [facility] [address] [place] [address] 04/09/2022 Peewee Villarreal Generalized postprandial abdominal pain R10.84 and Early satiety R68.81 [facility] [address] [place] [address] 12/12/2022 Feliciano Dwyer Nausea and vomiting, unspecified vomiting type R11.2 and Depression, unspecified depression type F32.A [facility] [address] [place] [address] 10/31/2022 Feliciano Dwyer [facility] [address] [place] [address] 10/21/2022 Clifford Deleon [facility] [address] [place] [address] 01/23/2023 Feliciano Dwyer Nausea R11.0 ; Epigastric pain R10.13 and Diarrhea, unspecified type R19.7 [facility] [address] [place] [address] 01/23/2023 Feliciano Dwyer [facility] [address] [place] [address] 04/16/2022 Mirta Carballo Nausea R11.0 ; Anxie ty F41.9 and Primary hypertension I10 [facility] [address] [place] [address] 04/22/2022 Mirta Carballo Anxiety F41.9 ; Depression, unspecified depression type F32.A ; Primary hypertension I10 ; Tachycardia R00.0 ; Nicotine dependence, cigarettes, uncomplicated F17.210 ; Mixed hyperlipidemia E78.2 ; Hyponatremia E87.1 and Thyroid disorder screen Z13.29 [facility] [address] [place] [address] 09/16/2022 Clifford Deleon [facility] [address] [place] [address] 08/22/2022 Clifford Deleon [address] [place] [address] 08/27/2022 Clifford Deleon [facility] [address] [place] [address], [place] [address] 08/12/2022 Clifford Deleon Palpitations R00.2 ASSESSMENTS Encounter [...] SOB (shortness of breath) (ICD-10 - R06.02) 11/29/2022 Nausea (ICD-10 - R11.0) 12/12/2022 Depression, unspecified depression type (ICD-10 - F32.A) 12/12/2022 Nausea and vomiting, unspecified vomiting type (ICD-10 - R11.2) 01/10/2023 Diarrhea, unspecifie d type (ICD-10 - R19.7) 01/13/2023 Nausea (ICD-10 - R11.0) 01/23/2023 Epigastric pain (ICD-10 - R10.13) 01/23/2023 Nausea (ICD-10 - R11.0) 08/05/2022 Dyspnea on exertion (ICD-10 - R06.00) 08/12/2022 Palpitations (ICD-10 - R00.2) 11/22/2022 Bronchitis (ICD-10 - J40) levoquin 11/22/2022 Wheezes (ICD-10 - R06.2) albuteral hfa (has medrol dose pack 01/30/2023 History of Helicobacter pylori infection (ICD-10 - Z86.19) 01/31/2023 Epigastric pain (ICD-10 - R10.13) toradol 60 mg im 01/31/2023 Nausea (ICD-10 - R11.0) zofran; phenergan prn as directed 11/22/2022 Primary hypertension (ICD-10 - I10) resume metoprolol bid every day continue amlodipine monitor bp 01/31/2023 Anxiety (ICD-10 - F41.9) xanax prn as directed 01/23/2023 Diarrhea, unspecifie d type (ICD-10 - R19.7) 04/22/2022 Primary hypertension (ICD-10 - I10) continue [...] box and take this to the nearest [employer] dropbox. We will contact them with results once the report is received. 03/28/2022 Nausea (ICD-10 - R11.0) 04/16/2022 Primary hypertension (ICD-10 - I10) 04/22/2022 Tachycardia (ICD-10 - R00.0) discussed with patient er if worsens 08/05/2022 Cigarette nicotine dependence, uncomplicated (ICD-10 - F17.210) 11/22/2022 Nicotine dependence, cigarettes, uncomplicated (ICD-10 - F17.210) 01/31/2023 Gastroesophageal reflux disease without esophagitis (ICD-10 - K21.9) gastro as scheduled 08/05/2022 Family history of coronary arteriosclerosis (ICD-10 [...] controlled with light dressing. Lab sent to [facility] via feed project engineer. Venipuncture: Performed by: Lemuel GARRISON Attempts: x1 Location: [facility] Needle gauge: 22G Patient tolerated well. 01/31/2023 [...] Test Test Name Order Date Giardia/Cryptosporidium Screen 23113, 87 329 01/10/2023 Calprotectin Fecal 13002 01/10/2023 C Diff Toxin EIA--45918 01/10/2023 Electrocardiogram (EKG) - 38912 08/06/[address] Cardiac Scoring Diagnostic-80249 04/2022 Future Test Test Name Order Date H Pylori Breath Test--10250 01/30/2023 Insurance Providers Payer Name Payer Address Payer Phone Subscriber Number Group Number Insured Name Patient Relationship to Insured Coverage Start Date Coverage End Date Sheldon [address] [place] [phone] [id number] Zhane Denise Self - patient is the insured MEDICATIONS ADMINISTERED Medication Instructions Date of Administration Dosage Notes DEPO-Medrol 10/19/2021 40 mg [facility] 27217-952 3-1 pt tolerated well/instructed to wait 20 min dexAMETHasone 10/19/2021 4 mg [facility] 14532-2 573-1 pt tolerated well/instructed pt to wait 20 min Ketorolac Tromethamine 01/31/2023 60 mg [facility] [address]-19 pt tolerated well/instructed to wait 20 min MEDICAL (GENERAL) HISTORY Medical History History ICD Code breast cancer right heartburn High Blood Pressure COVID VACCINATION X2 COVID SEPTEMBER 2021 LONG COVID Surgical History Surgery Date(Month/Year) cholecystectomy breast reconstruction breast biopsy left 2020 dilation and curettage Hospitalization History Reason Date(Month/Year) RICARDA [facility] 07/2022 see surgical history childbirth
[2023-02-06 14:40] VITALS: BP 125/77; PULSE 79; RESP 16; TEMP 36.4; O2SAT 97
[2023-02-06] MEDS: sodium chloride 0.9% 1,000 ML 999 ML IV (15:07)
[2023-02-06 16:10] VITALS: BP 123/77; PULSE 70; RESP 16; TEMP 36; O2SAT 98
[2023-02-12] MEDS: sodium chloride 0.9% 1,000 ML 999 ML IV (15:18)
[2023-02-12 16:33] VITALS: BP 116/67; PULSE 74; TEMP 36.4; O2SAT 95
--- OUTSIDE RECORDS SUMMARY | 2023-02-20 13:47 | XMS_ITS | Patient Health Record ---
Author Name Unknown Organization [facility] Address [address] [place] [address] Care Team Providers Care Manager Dairy Name Role Phone Mirta Carballo Primary Care Provider Feliciano Dwyer Unavailable [phone] MIRTA CARBALLO Unavailable Unavailable Clifford Deleon Unavailable [phone] Leila Gannon Unavailable [phone] Peewee Villarreal Unavailable ALLERGIES Allergen (clinical drug ingredient) Drug/Non Drug Allergy documented on EMR Reaction Allergy Type Onset Date Status sucralfate Carafate Unknown Drug Allergy Active Penicillin Unknown Drug Allergy Active vancomycin Vancomycin Unknown Drug Allergy Activ e RESULTS Component Value Reference Range Notes MRI Abdomen MRCP w/o Cont-74 181 Reviewed date:05/20/2022 01:42:46 PM Interpretation: Performing Lab: Notes/Report: mdo=[id number]&org=iSite NM Gastric Emptying Study-78 264 Reviewed date:04/24/2022 09:34:00 AM Interpretation: Performing Lab: Notes/Report: [id number]&org=iSite NM Gastric Emptying Study-78 264 Reviewed date:04/24/2022 09:33:54 AM Interpretation: Performing Lab: Notes/Report: See Below For Report NM Gastric Emptying Study Diagnosis Description: Generalized abdominal pain Comprehensive Metabolic Pane l 37610 Reviewed date:04/22/2022 09:36:53 PM Interpretation: Performing Lab: Notes/Report: Diagnosis Description: Essential (primary) hypertension Glucose Serum 130 71-110 MG/DL BUN 9 7-21 MG/DL Creat .69 .51-1.17 MG/DL K-gbgbdb-f-benzoquinon e imine (NAPQI) is a metabolite of [...] 286 280-300 MOSM/KG CBC w\ Auto Diff 29144 Reviewed date:04/22/2022 09:37:08 PM Interpretation: Performing Lab: [...] 42.0-75.0 % Lymph Auto% 22.8 20.0-51.0 % [place] Auto% 6.9 1.7-9.3 % Eos Auto% 1.9 .0-6.0 % Baso Auto% 0.5 0.0-1.0 % Imm Gran% .1 .0-.4 % Neutro Abs 5.43 .80-7.70 Lymph Abs 1.82 .10-4.10 [place] Abs .55 .20-1.00 Eos Abs .15 .00-.40 Baso Abs .04 .00-.10 Imm Gran Abs .01 .00-.10 NRBC# .00 .00-.20 X10'3 NRBC% .00 .00-.20 /100 intact WBC's Thyroxine (T4) 66160 Reviewed date:04/22/2022 09:37:20 PM Interpretation: Performing Lab: Notes/Report: Diagnosis Description: Encounter for screening for other suspected endocrine disorder ThyroxinT4 10.4 4.8-13.9 Lipid Panel Reflex DLDL 8006 1, 49920 Reviewed date:04/22/2022 09:37:36 PM Interpretation: Performing Lab: [...] See DLDL result. Thyroid Stimulating Hormone (TSH) 86142 Reviewed date:04/22/2022 09:37:47 PM Interpretation: Performing Lab: Notes/Report: Diagnosis Description: Encounter for screening for other suspected endocrine disorder TSH 1.372 .358-3.740 MlU/ML MRI Abdomen MRCP w/o Cont-74 181 Reviewed date:05/20/2022 12:07:34 PM Interpretation: Performing Lab: Notes/Report: See Below For Report MRI Abdomen MRCP w/o Cont Echo Complete [id number] Reviewed date:09/20/2022 08:42:49 AM Interpretation: Performing Lab: Notes/Report: [id number]&org=iSite Holter 7 day-[id number],26865 Reviewed date:08/05/2022 05:06:46 PM Interpretation: Performing Lab: Notes/Report: Holter 7 day-[id number],28786 Reviewed date:08/05/2022 05:06:46 PM Interpretation: Performing Lab: Notes/Report: Holter 7 day-08983,71013 Reviewed date:08/05/2022 05:06:46 PM Interpretation: Performing Lab: Notes/Report: Schedule Confirmation Reviewed date:08/20/2022 10:19:54 AM Interpretation: Performing Lab: Notes/Report: CT Cardiac Scoring Diagnostic Schedule Confirmation Reviewed date:10/09/2022 08:03:18 AM Interpretation: Performing Lab: Notes/Report: CT Cardiac Scoring Diagnostic Echo Complete [id number] Reviewed date:10/22/2022 07:59:52 AM Interpretation: Performing Lab: Notes/Report: Cardiopulmonary Services Name: ZHANE DENISE Study Date: 09/16/2022 : 1960 Patient Location: [facility] Age: 62 yrs Gender: Female HR: 92 [...] CT Cardiac Scoring Diagnostic C Diff Toxin EIA--69215 Reviewed date:01/14/2023 06:26:07 PM Interpretation: Performing Lab: Notes/Report: CDiff Toxin EIA ZHANE Ascencio CDiff Toxin EIA CDiff Toxin EIA t: CDiff Toxin EIA CDiff Toxin EIA [facility] [id number] CDiff Toxin EIA n: CDiff Toxin EIA [...] based on clinical symptoms. Giardia/[place] 89207, 37131 Reviewed date:01/14/2023 06:26:37 PM Interpretation: Performing Lab: Notes/Report: Giardia/Cryptosporidium Screen ZHANE Ascencio Giardia/Cryptosporidium Screen Giardia/Cryptosporidium Screen t: Giardia/Cryptosporidium Screen Giardia/Cryptosporidium Screen Access [id number] Giardia/Cryptosporidium Screen n: Giardia/Cryptosporidium Screen Microbiology Giardia/Cryptosporidium [...] O1: Giardia/Cryptosporidi um Screen (Giardia/Cryptosporid ium Screen 59986, 33790) Giardia/Cryptosporidium Screen Diagnosis Description: Diarrhea, unspecified Calprotectin Fecal 27289 Reviewed date:01/14/2023 06:26:46 PM Interpretation: Performing Lab: Notes/Report: Diagnosis Description: Diarrhea, unspecified Calprotectin Fecal 185 <=49 REFERENCE INTERVAL: Calprotectin, Fecal by Immunoassay Less than 50 ug/g.........Normal 50-120 ug/g...............Bord kendal elevated, test should be re-evaluated in 4-6 weeks. 121 ug/g or greater.......Elevated Performed By: [facility] [address] [place] [id number] Confidential Secretary: Lm Casey MD, PhD IA Number: [id number] H Pylori Breath Test--19691 Reviewed date:02/13/2023 02:27:00 PM Interpretation: Performing Lab: Notes/Report: Diagnosis Description: Personal history of other infectious and parasitic diseases H Pylori Breath Test Positive Negative INTERPRETIVE INFORMATION: Helicobacter pylori, Breath Test A negative result does not rule out the possibility of H. pylori infection. If clinical signs are suggestive of H. pylori infection, retest with a new specimen or an alternate method. Known causes of false-negative results include : 1. Ingestion of antimicrobials, proton pump inhibitors, and bismuth preparations during the preceding 2 weeks. Known causes of false-positive results include: 1. Patients with achlorhydria. 2. Rinsing the testing solution in the mouth or not using the straw provided in the kit, which can allow contact with urease-positive bacteria. 3. The presence of other gastric spiral organisms such as Helicobacter heilmannii. Note: The post-dose sample must be collected between 15 and 20 minutes post-dose to prevent a false-negative result. Performed By: [facility] [address] [place] [address] Confidential Secretary: Lm Casey MD, PhD CLIA Number: [id number] REASON FOR REFERRAL Reason gastritis Diagnosis 1 Gastroesophageal ref lux disease without esophagitis (K21.9) Referral Organization [facility] Referring Provider First Name Mirta Referring Provider [...] (shortness of br eath) (R06.02) Referral Organization [facility] Referring Provider First Name Mirta Referring Provider Last Name Carballo Referring Provider Speciality Nurse Salma birch Referred Organization [facility] Referred Provider Clifford Deleon Referred Address [address] [place] [phone], Referred Provider Specialty Cardiology Referral Priority Routine Reason tachycardia Diagnosis 1 Tachycardia (R00.0) Diagnosis 2 Primary hypertension (I10) Diagnosis 3 Nicotine dependence, cigarettes, uncomplicated (F17.210) Referral Organization [facility] Referring Provider First Name Mirta Referring Provider Last Name Carballo Referring Provider Speciality Nurse Salma birch [facility] Referred Provider Specialty Cardiology General Notes Elizabet Oreilly 04/07 10:21:47 AM >Per chart patient has apt on 05/29/[address] Deleon at [facility]., Elizabet Oreilly 08/09/2022 04:31:40 PM >See [...] Duration) Notes Start Date End Date Status Metoprolol Tartrate 50 MG TAKE 2 TABLETS BY MOUTH TWICE DAILY WITH FOOD for 90 Active Pantoprazole Sodium 40 MG 1 tablet Orall y BID for 14 days 02/13/2023 Active Protonix 40 MG 1 tablet Orally Once a day for 90 days 02/27/2023 Active Diphenoxylate-Atropine 2.5-0.025 MG 1 tab Orally Four times a day prn diarrhea for 30 days 01/02/2023 Active Ondansetron 4 MG DISSOLVE 1 TABLET IN MOUTH EVERY 4 HOURS NEEDED FOR NAUSEA FOR 30 DAYS for 30 Active levoFLOXacin 500 MG 1 tablet Orally Once a day for 14 02/13/2023 02/27/2023 Active Metoclopramide HCl 10 MG Oral for 30 Days Not-Taking Pantoprazole Sodium 40 MG Take 1 tablet by mouth twice daily for 30 Not-Taking Promethegan 25 MG _insert ONE SUPPOSITORY rectally EVERY 6 HOURS NEEDED FOR NAUSEA AND VOMITING Diagnosis Unavailable Rectal for 3 Active traZODone HCl 100 MG TAKE 1 TO 2 TABLETS BY MOUTH ONCE DAILY NEEDED FOR SLEEP Oral Once a day for 30 days Active ALPRAZolam 0.5 MG TAKE 1/2 TO 1 (ONE-HALF TO ONE) TABLET BY MOUTH 4 TIMES DAILY NEEDED FOR ANXIETY FOR 30 DAYS *REPLACES LORAZEPAM* for 30 01/21/2023 Active Reglan 10 MG 1 tablet Orally Once Not-Taking Morphine Sulfate 30 MG 1 tablet as neede d Orally every 4 hrs Active amLODIPine Besylate 5 MG Take 1 tablet b y mouth once daily for 30 Active Dicyclomine HCl 20 MG 1 tablet Orally Th ree times a day Active Sertraline HCl 50 MG 1 tablet Orally Onc e a day Active SOCIAL HISTORY Tobacco Use: Social History [...] Notes Problem Mixed hyperlipidemia (E78.2) Active confirmed 088288049 Problem Nicotine dependence, cigarettes, uncomplicated (F17.210) Active confirmed 14201071 Problem Nausea (R11.0) Active confirmed 1166875 07 Problem Early satiety (R68.81) Active confirmed 233119671 Problem Gastroesophageal reflux disease without esophagitis (K21.9) Active confirmed 251577172 Problem Anxiety (F41.9) Active confirmed 854115 02 Problem SOB (shortness of breath) (R06.02) Active confirmed 406944014 Problem Hypertension, unspecified type (I10) Active confirmed 48076116 Problem Hyponatremia (E87.1) Active confirmed 10950847 Problem History of breast cancer (Z85.3) Active confirmed 705085810 Problem History of Helicobacter pylori infection (Z86.19) Active confirmed 50507384873862008 Problem Thyroid disorder screen (Z13.29) Active confirmed 661421967 Problem Acute gastritis without hemorrhage, unspecified gastritis type (K29.00) Active confirmed 43677351 Problem Generalized postprandial abdominal pain (R10.84) Active confirmed 486786337 Problem COVID-19 (U07.1) Active confirmed 67729 9006 Problem 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) Active confirmed 139108795 Problem Atrophic gastritis without hemorrhage (K29.40) Active confirmed 35246524 Problem 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) Active confirmed 921036052 Problem Primary hypertension (I10) Active confirmed 32377625 Problem Heart rate problem (R00.9) Active confirmed 252132951 VITAL SIGNS Heart Rate 85 /min 01/31/2023 Temperature 97.3 degrees Fahrenheit 01/31/2023 Respiratory Rate 18 /min 01/23/2023 Height-cm 165.1 cm 01/31/2023 Oximetry 93 % 01/31/2023 Blood pressure diastolic 90 mm Hg 01/31/2023 Weight-kg 61.23 kg 01/31/2023 Height 65 in 01/31/2023 Blood pressure systolic 173 mm Hg 01/31/2023 Weight 135 lbs 01/31/2023 BMI 22.46 kg/m2 01/31/2023 Encounters Encounter Location Date Provider Diagnosis [facility] [address] [place] [address] 03/05/2022 [facility] [address] [place] [address] 03/08/2022 [facility] [address] [place] [address] 03/22/2022 [facility] [address] [place] [address] 03/28/2022 [facility] Gastroesophageal reflux disease without esophagitis K21.9 ; Acute gastritis without hemorrhage, unspecified gastritis type K29.00 and Nausea R11.0 [facility] [address] [facility] [address] [place] [address] 04/09/2022 [facility] [address] [place] [facility] [place] [address] 04/16/2022 Peewee Villarreal [facility] [address] [facility] [address] [place] [address] 04/17/2022 [facility] [address] [place] [address] 04/19/2022 [facility] [address] [facility] [address] [place] [address] 04/22/2022 [facility] [address] [place] [facility] [place] [address] 04/22/2022 Peewee Villarreal [facility] [address] [facility] [address] [place] [address] 04/23/2022 [facility] [address] [facility] [place] [address] 07/16/2022 [facility] [address] [place] [address] 08/12/2022 [facility] [address] [facility] [place] [address] 08/15/2022 [facility] [address] [place] [address] 08/27/2022 [facility] [address] [place] [address] 10/14/2022 [facility] [address] [facility] 4 [place] [address] 11/29/2022 [facility] Nausea R11.0 [facility] [address] [facility] [place] [address] 12/18/2022 [facility] [address] [facility] [place] [address] 01/01/2023 [facility] Gastroenterology Clinic [address] [facility] [place] [address] 01/10/2023 Feliciano Dwyer Diarrhea, unspecifie d type R19.7 [facility] [address] [facility] [place] [address] 01/13/2023 [facility] Nausea R11.0 [facility] Office [address] [facility] 4 [place] [address] 02/03/2023 [facility] [address] [place] [address] 02/11/2023 Leila ElizaldeAmador [facility] [address] [place] [address] 02/13/2023 Feliciano Dwyer H. pylori infection A04.8 [facility] [address] [place] [address] 01/30/2023 Feliciano Dwyer History of Helicobacter pylori infection Z86.19 [facility] [address] [address] 01/31/2023 [facility] Nausea R11.0 ; Epigastric pain R10.13 ; Anxiety F41.9 and Gastroesophageal reflux disease without esophagitis K21.9 [facility] [address] [place] [address] 11/22/2022 [facility] Bronchitis J40 ; Wheezes R06.2 ; Primary hypertension I10 and Nicotine dependence, cigarettes, uncomplicated F17.210 [facility] [address] [place] [address] 12/31/2022 [facility] 277 [place] [address] 04/30/2022 [facility] [address] [place] [address] 05/07/2022 [facility] [address] [place] [address] 05/07/2022 [facility] [address] [address] 05/13/2022 [facility] [address] [place] [address] 05/21/2022 [facility] Gastroesophageal reflux disease without esophagitis K21.9 and Sphincter of Oddi dysfunction K83.[address] [place] [address] 05/29/2022 Clifford Deleon [address] [place] [address] 08/05/2022 Clifford Deleon SOB (shortness of breath) R06.02 ; Dyspnea on exertion R06.00 ; Palpitations R00.2 ; Cigarette nicotine dependence, uncomplicated F17.210 and Family history of coronary arteriosclerosis Z82.49 [facility] [address] [place] [address] 04/09/2022 Peewee Villarreal Generalized postprandial abdominal pain R10.84 and Early satiety R68.81 [facility] [address] [place] [address] 12/12/2022 Feliciano Dwyer Nausea and vomiting, unspecified vomiting type R11.2 and Depression, unspecified depression type F32.A [facility] [address] [place] [address] 10/31/2022 Feliciano Dwyer [facility] [address] [place] [address] 10/21/2022 [facility]astro[facility] [address] [place] [address] 01/23/2023 Feliciano Dwyer Nausea R11.0 ; Epigastric pain R10.13 and Diarrhea, unspecified type R19.7 [facility] [address] [place] [address] 01/23/2023 Feliciano Dwyer [facility] [address] [place] [address] 04/16/2022 Mirta Carballo Nausea R11.0 ; Anxie ty F41.9 and Primary hypertension I10 [facility] [address] [place] [address] 04/22/2022 Mirta Carballo Anxiety F41.9 ; Depression, unspecified depression type F32.A ; Primary hypertension I10 ; Tachycardia R00.0 ; Nicotine dependence, cigarettes, uncomplicated F17.210 ; Mixed hyperlipidemia E78.2 ; Hyponatremia E87.1 and Thyroid disorder screen Z13.29 [facility] [address] [place] [address], [place] [address] 09/16/2022 [facility] [address] [place] [address], [place] [address] 08/22/2022 [facility] [address] [place] [address], [place] [address] 08/27/2022 [facility] [address] [place] [address] 08/12/2022 Clifford Rodriguezt Palpitations R00.2 ASSESSMENTS Encounter Date Diagnosis Assessment Notes Treatment Notes Treatment Clinical Notes 02/13/2023 H. pylori infection (ICD-10 - A04.8) 01/30/2023 History of Helicobacter pylori infection (ICD-10 - Z86.19) 11/22/2022 Bronchitis (ICD-10 - J40) levoquin 11/22/2022 Wheezes (ICD-10 - R06.2) albuteral hfa (has medrol dose pack 01/31/2023 Epigastric pain (ICD-10 - R10.13) toradol 60 mg im 01/31/2023 Nausea (ICD-10 - R11.0) zofran; phenergan prn as directed 04/22/2022 Depression, unspecified depression type (ICD-10 - [...] - R10.13) 01/23/2023 Nausea (ICD-10 - R11.0) 03/28/2022 Gastroesophageal reflux disease without esophagitis (ICD-10 - K21.9) refer to dr jermaine lane [facility] as per patient request 03/28/2022 Acute gastritis without hemorrhage, unspecified gastritis type (ICD-10 - K29.00) 04/09/2022 Early satiety (ICD-1 0 - R68.81) 04/09/2022 Generalized postprandial abdominal pain (ICD-10 - R10.84) 04/16/2022 Nausea (ICD-10 - R11.0) 04/16/2022 Anxiety (ICD-10 - F41.9) 04/22/2022 Anxiety (ICD-10 - F41.9) 03/28/2022 Nausea (ICD-10 - R11.0) 04/16/2022 Primary hypertension (ICD-10 - I10) 01/23/2023 Diarrhea, unspecifie d type (ICD-10 - [...] box and take this to the nearest [employer] dropbox. We will contact them with results once the report is received. 11/22/2022 Primary hypertension (ICD-10 - I10) resume metoprolol bid every day continue amlodipine monitor bp 01/31/2023 Anxiety (ICD-10 - F41.9) xanax prn as directed 01/31/2023 Gastroesophageal reflux disease without esophagitis (ICD-10 - K21.9) gastro as scheduled 08/05/2022 Cigarette nicotine dependence, uncomplicated (ICD-10 - F17.210) 11/22/2022 Nicotine dependence, cigarettes, uncomplicated (ICD-10 - F17.210) 04/22/2022 Tachycardia (ICD-10 - R00.0) discussed with patient er if worsens 08/05/2022 Family history of coronary arteriosclerosis (ICD-10 - Z82.49) 04/22/2022 Nicotine dependence, cigarettes, uncomplicated (ICD-10 - F17.210) discussed with patient tobacco abuse; risks 04/22/2022 Mixed hyperlipidemia (ICD-10 - E78.2) lipids 04/22/2022 Hyponatremia (ICD-10 - E87.1) cmp 04/22/2022 Thyroid disorder screen (ICD-10 - Z13.29) 04/22/2022 Other Venipuncture performed by BLADIMIR Brower to [facility], 22 guage needle, not enough blood obtained, Pt tolerated well, bleeding controlled with light dressing. Lab sent to [facility] via button [facility]. Venipuncture: Performed by: Lemuel GARRISON Attempts: x1 Location: [facility] Needle gauge: 22G Patient tolerated well. 01/31/2023 [...] Test Test Name Order Date Giardia/Cryptosporidium Screen 14913, 87 329 01/10/2023 Calprotectin Fecal 62176 01/10/2023 C Diff Toxin EIA--05465 01/10/2023 Electrocardiogram (EKG) - 44319 08/06/[address] Cardiac Scoring Diagnostic-19345 04/2022 Future Test Test Name Order Date H Pylori Breath Test--38203 01/30/2023 H Pylori Breath Test--69777 03/27/2023 Next Appt Details Provider Name:Clifford Deleon , 03/25/2023 03:00:00 PM, [address], [address], Insurance Providers Payer Name Payer Address Payer Phone Subscriber Number Group Number Insured Name Patient Relationship to Insured Coverage Start Date Coverage End Date Sheldon [address] [facility] [place] [phone] [id number] Zhane Denise Self - patient is the insured MEDICATIONS ADMINISTERED Medication Instructions Date of Administration Dosage Notes DEPO-Medrol 10/19/2021 40 mg [facility] [address]70-361 3-1 pt tolerated well/instructed to wait 20 min dexAMETHasone 10/19/2021 4 mg [facility] 18751-4 573-1 pt tolerated well/instructed pt to wait 20 min Ketorolac Tromethamine 01/31/2023 60 mg [facility] [address]-42 pt tolerated well/instructed to wait 20 min MEDICAL (GENERAL) HISTORY Medical History History ICD Code breast cancer right heartburn High Blood Pressure COVID VACCINATION X2 COVID SEPTEMBER 2021 LONG COVID Surgical History Surgery Date(Month/Year) cholecystectomy breast reconstruction breast biopsy left 2020 dilation and curettage Hospitalization History Reason Date(Month/Year) RICARDA MANRIQUEZ [facility] 07/2022 see surgical history childbirth
[2023-02-20 14:11] VITALS: BP 124/84; PULSE 74; RESP 18; TEMP 37.1; O2SAT 97
[2023-02-20] MEDS: ondansetron 2 mg/ML SDV 2 mL 8 MG IVP (14:42)
[2023-02-20 15:41] VITALS: BP 117/68; PULSE 84; RESP 16; TEMP 37.1; O2SAT 98
== END 2023-03-06 23:59 | disposition home or self-care (01) ==
PROVIDERS: PCP Nurse Practitioner Family; Visit Provider Internal Medicine Medical Oncology
DX: R10.9 Unspecified abdominal pain; C50.911 Malignant neoplasm of unspecified site of right female breast
CPT/HCPCS: 96360; 96365; 96375; J2405; J7030

== ENCOUNTER 2023-05-01 13:00 | Oncology outpatient (recurring) (ONCR) | payer OTHER, SELFPAY ==
[2023-04-24 09:18] VITALS: PULSE 77; RESP 16; TEMP 36.6; O2SAT 98
[2023-04-24 09:25] VITALS: BP 110/68
[2023-04-24 09:57] LABS: Basophils # 0.1 10^3/uL (0.0-0.1); Basophils % 0.5 %; Eosinophils # 0.4 10^3/uL (0.0-0.8); Eosinophils % 3.6 %; Hematocrit 39.5 % (36-47); Lymphocytes # 2.3 10^3/uL (0.8-4.8); Lymphocytes % 21.1 %; Mean Corpuscular HGB Conc 33.4 g/dL (30-55); Mean Corpuscular Hemoglobin 29.8 pg (27-33); Mean Corpuscular Volume 89.2 fl (85-98); Mean Platelet Volume 9.8 fL (7.4-10.4); Monocytes # 0.7 10^3/uL (0.2-0.9); Monocytes % 6.8 %; Neutrophils # 7.25 10^3/uL (1.8-7.7); Neutrophils % 67.4 %; Nucleated Red Blood Cells % 0 %; Platelet Count 354 10^3/cmm (157-399); Red Blood Count 4.43 10^6/uL (3.85-5.65); Red Cell Distribution Width 15.7 % (12.1-15.1); White Blood Count 10.75 10^3/uL (3.29-11.43)
[2023-04-24] MEDS: sodium chloride 0.9% 1,000 ML 999 ML IV (09:59)
[2023-04-24 10:42] LABS: Alanine Aminotransferase 24 U/L (0-33); Albumin Level 3.4 g/dL (3.5-5.2); Alkaline Phosphatase 51 U/L (35-105); Anion Gap 10.4 (5-19); Aspartate Amino Transferase 22 U/L (0-32); Blood Urea Nitrogen 13 mg/dL (8-23); Carbon Dioxide 30 mmol/L (22-29); Chloride 95 mmol/L (98-107); Globulin 1.9 g/dL (1.3-4.6); Glomerular Filtration Rate 63.7 mL/min (90-130); Glucose 110 mg/dL (65-115); Magnesium 1.2 mg/dL (1.7-2.3); Osmolality Calculated 275 mOsm/kg (285-295); Potassium 3.4 mmol/L (3.5-5.1); Sodium 132 mmol/L (136-145); Total Bilirubin 0.3 mg/dL (0.15-1.2); Total Protein 5.3 g/dL (6.6-8.7)
[2023-04-24 11:24] VITALS: BP 130/68; PULSE 85; RESP 18; TEMP 37.3; O2SAT 96
--- OUTSIDE RECORDS SUMMARY | 2023-05-01 12:36 | XMS_ITS | Patient Health Record ---
Author Name Unknown Organization [facility] Address [address] [place] [address] Care Team Providers Care Assistant Program Manager Name Role Phone Mirta Carballo Primary Care Provider Feliciano Dwyer Unavailable [phone] MIRNADIVINARA Unavailable Unavailable Steven Bautista Unavailable [phone] Clifford Deleon Unavailable [phone] Leila Gannon Unavailable [phone] Peewee Villarreal Unavailable ALLERGIES Allergen (clinical drug [...] For Report MRI Abdomen MRCP w/o Cont Schedule Confirmation Reviewed date:08/20/2022 10:19:54 AM Interpretation: Performing Lab: Notes/Report: CT Cardiac Scoring Diagnostic Schedule Confirmation Reviewed date:10/09/2022 08:03:18 AM Interpretation: Performing Lab: Notes/Report: CT Cardiac Scoring Diagnostic Echo Complete [id number] Reviewed date:10/22/2022 07:59:52 AM Interpretation: Performing Lab: Notes/Report: Cardiopulmonary Services Name: ZHANE DENISE Study Date: 09/16/2022 : 1960 Patient Location: [facility] Age: 62 yrs Gender: Female [...] Performing Lab: Notes/Report: CT Cardiac Scoring Diagnostic Giardia/[place] [id number], [id number] Reviewed date:01/14/2023 06:26:37 PM Interpretation: Performing Lab: Notes/Report: Giardia/Cryptosporidium Screen ZHANE Ascencio Giardia/Cryptosporidium Screen Giardia/Cryptosporidium Screen t: Giardia/Cryptosporidium Screen Giardia/Cryptosporidium Screen [employer] [id number] Giardia/Cryptosporidium Screen n: Giardia/Cryptosporidium Screen Microbiology Giardia/Cryptosporidium Screen Giardia/Cryptosporidium Screen Giardia/Cryptosporidium Screen PROCEDURE: Giardia/Cryptosporidium Giardia/Cryptosporidium Screen Screen [O1] Giardia/Cryptosporidium Screen SOURCE: Stool BODY SITE: Giardia/Cryptosporidium Screen COLLECTED DATE/TIME: 01/08/2023 09:54 CDT RECEIVED DATE/TIME: 01/08/2023 18:45 CDT Giardia/Cryptosporidium Screen START DATE/TIME: 01/08/2023 18:45 CDT FREE TEXT SOURCE: Giardia/Cryptosporidium Screen Giardia/Cryptosporidium Screen FINAL REPORT Giardia/Cryptosporidium Screen Final Report [] Giardia/Cryptosporidium Screen Verified Date/Time: 01/08/2023 19:30 CDT Giardia/Cryptosporidium Screen Negative for Giardia/Cryptosporidium Antigen Giardia/Cryptosporidium Screen Giardia/Cryptosporidium Screen Order Comments Giardia/Cryptosporidium Screen O1: Giardia/Cryptosporidium Screen (Giardia/Cryptosporidiu m Screen 07904, 68118) Giardia/Cryptosporidium Screen Diagnosis Description: Diarrhea, unspecified Calprotectin Fecal 06486 Reviewed date:01/14/2023 06:26:46 PM Interpretation: Performing Lab: Notes/Report: Diagnosis Description: Diarrhea, unspecified Calprotectin Fecal 185 <=49 REFERENCE INTERVAL: Calprotectin, Fecal by Immunoassay Less than 50 ug/g.........Normal 50-120 ug/g...............Bord kendal elevated, test should be re-evaluated in 4-6 weeks. 121 ug/g or greater.......Elevated Performed By: [employer] [address] [place] [address] Data Warehouse Developer: Lm Casey MD, PhD CLIA Number: [id number] C Diff Toxin EIA--[id number] Reviewed date:01/14/2023 06:26:07 PM Interpretation: Performing Lab: Notes/Report: CDiff Toxin EIA ZHANE Ascencio CDiff Toxin EIA CDiff Toxin EIA t: CDiff Toxin EIA CDiff Toxin EIA [facility] [id number] CDiff Toxin EIA n: CDiff Toxin EIA Microbiology CDiff Toxin EIA CDiff Toxin EIA CDiff Toxin EIA PROCEDURE: CDiff Tox in EIA [O1 i1] CDiff Toxin EIA SOURCE: [...] Diff Toxin EIA) CDiff Toxin EIA Diagnosis Descriptio n: Diarrhea, unspecified CDiff Toxin EIA CDiff Toxin [...] result should be based on clinical symptoms. H Pylori Breath Test--32848 Reviewed date:02/13/2023 02:27:00 PM Interpretation: Performing Lab: [...] to prevent a false-negative result. Performed By: [employer] [address] [place] [address] Data Warehouse Developer: Lm Casey MD, PhD CLIA Number: [id number] [facility]-[id number] Reviewed date:09/20/2022 08:42:49 AM Interpretation: Performing Lab: Notes/Report: [id number] - Reviewed date:08/05/2022 05:06:46 PM Interpretation: Performing Lab: Notes/Report: Holter - Reviewed date:08/05/2022 05:06:46 PM Interpretation: Performing Lab: Notes/Report: [facility] 7 241 Reviewed date:08/05/2022 05:06:46 PM Interpretation: Performing Lab: Notes/Report: REASON FOR REFERRAL Reason Eval and Treat Diagnosis 1 Atrophic gastritis w ithout hemorrhage (K29.40) Diagnosis 2 Gastroesophageal ref lux disease without esophagitis (K21.9) Diagnosis 3 Sphincter of Oddi dy sfunction (K83.4) Referral Organization [facility] Referring Provider First Name Tony medley Referring Provider Last Name Phil Referring Provider Speciality Internal M edicine Referred Provider Dick Gutierrez Referred Provider Specialty Internal Med icine Referral Priority Routine MEDICATIONS Medication SIG (Take, Route, Frequency, Duration) Notes Start Date End Date Status Ondansetron 4 MG DISSOLVE 1 TABLET IN MOUTH EVERY 4 HOURS NEEDED FOR NAUSEA FOR 30 DAYS for 30 Active ALPRAZolam 0.5 MG TAKE 1/2 TO 1 (ONE-HALF TO ONE) TABLET BY MOUTH 4 TIMES DAILY NEEDED FOR ANXIETY FOR 30 DAYS *REPLACES LORAZEPAM* for 30 01/21/2023 Active amLODIPine Besylate 5 MG Take 1 tablet b y mouth once daily for 30 Active Metoprolol Tartrate 50 MG TAKE 2 TABLETS BY MOUTH TWICE DAILY WITH FOOD for 90 Active Diphenoxylate-Atropine 2.5-0.025 MG 1 tab Orally Four times a day prn diarrhea for 30 days 01/02/2023 Active Lomotil 2.5-0.025 MG 1 tab Orally after q liquid stool for 30 days 04/14/2023 Active Metoclopramide HCl 10 MG Oral for 30 Days Not-Taking traZODone HCl 100 MG TAKE 1 TO 2 TABLETS BY MOUTH ONCE DAILY NEEDED FOR SLEEP Oral Once a day for 30 days Active Promethegan 25 MG _insert ONE SUPPOSITORY rectally EVERY 6 HOURS NEEDED FOR NAUSEA AND VOMITING Diagnosis Unavailable Rectal for 3 Active Protonix 40 MG 1 tablet Orally Once a day for 90 days 02/27/2023 Active Reglan 10 MG 1 tablet Orally Once Not-Taking Pantoprazole Sodium 40 MG Take 1 tablet by mouth twice daily for 30 Not-Taking Morphine Sulfate 30 MG 1 tablet as neede d Orally every 4 hrs Active Dicyclomine HCl 20 MG 1 tablet Orally Th ree times a day Active Pantoprazole Sodium 40 MG 1 tablet Orall y BID for 14 days 02/13/2023 Active Sertraline HCl 50 MG 1 tablet Orally Onc e a day Active Promethazine HCl 25 MG TAKE 1 TABLET BY MOUTH EVERY 4 TO 6 HOURS NEEDED FOR NAUSEA for 7 Active Pepcid 40 MG 1 tablet Orally twic e daily for 30 days 03/18/2023 Active SOCIAL HISTORY Tobacco Use: Social History [...] Notes Problem Mixed hyperlipidemia (E78.2) Active confirmed 515786472 Problem Nicotine dependence, cigarettes, uncomplicated (F17.210) Active confirmed 93360862 Problem Nausea (R11.0) Active confirmed 1256006 07 Problem Early satiety (R68.81) Active confirmed 495654253 Problem Gastroesophageal reflux disease without esophagitis (K21.9) Active confirmed 046470522 Problem Anxiety (F41.9) Active confirmed 137389 02 Problem SOB (shortness of breath) (R06.02) Active confirmed 932240083 Problem Hypertension, unspecified type (I10) Active confirmed 12862720 Problem Hyponatremia (E87.1) Active confirmed 81955270 Problem History of breast cancer (Z85.3) Active confirmed 299637248 Problem History of Helicobacter pylori infection (Z86.19) Active confirmed [id number] Problem Thyroid disorder screen (Z13.29) Active confirmed 122789432 Problem Acute gastritis without hemorrhage, unspecified gastritis type (K29.00) Active confirmed 58370804 Problem Generalized postprandial abdominal pain (R10.84) Active confirmed 272160388 Problem COVID-19 (U07.1) Active confirmed 42011 9006 Problem 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) Active confirmed 532654351 Problem Atrophic gastritis without hemorrhage (K29.40) Active confirmed 06783862 Problem 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) Active confirmed 716955839 Problem Primary hypertension (I10) Active confirmed 90587329 Problem Heart rate problem (R00.9) Active confirmed 825025607 VITAL SIGNS Heart Rate 85 /min 01/31/2023 Temperature 97.3 degrees Fahrenheit 01/31/2023 Respiratory Rate 18 /min 01/23/2023 Blood pressure diastolic 90 mm Hg 01/31/2023 Oximetry 93 % 01/31/2023 Height-cm 165.1 cm 01/31/2023 Weight-kg 61.23 kg 01/31/2023 Height 65 in 01/31/2023 Blood pressure systolic 173 mm Hg 01/31/2023 Weight 135 lbs 01/31/2023 BMI 22.46 kg/m2 01/31/2023 Encounters Encounter Location Date Provider Diagnosis [address] [place] [address] 05/07/20[facility] [address] [place] [place] [address] 05/07/2022 Peewee Villarreal [facility] [address] [place] [address] 05/13/2022 [facility] [address] [facility] [place] [address] 05/21/2022 Peewee Villarreal Gastroesophageal reflux disease without esophagitis K21.9 and Sphincter of Oddi dysfunction K83.[address] [place] [address] 05/29/2022 Clifford Deleon [address] [place] [address] 07/16/2022 [facility] [address] [place] [address], [place] [address] 08/05/2022 Clifford Deleon SOB (shortness of breath) R06.02 ; Dyspnea on exertion R06.00 ; Palpitations R00.2 ; Cigarette nicotine dependence, uncomplicated F17.210 and Family history of coronary arteriosclerosis Z82.49 [facility] [address] [place] [address], [place] [address] 08/12/2022 Clifford Deleon [facility] [address] [place] [address], [place] [address] 08/12/2022 Clifford Deleon Palpitations R00.[address] [place] [address] 08/15/2022 [facility] [address] [place] [address] 08/22/2022 Clifford Deleon [facility] [address] [place] [address], [place] [address] 08/27/2022 Clifford Cordovauitt [facility] [address] [place] [address] 08/27/2022 Clifford Deleon [facility] [address] [place] [address] 09/16/2022 Clifford Deleon [facility] [address] [place] [address] 10/14/2022 Clifford [facility] [address] [place] [address] 10/21/2022 Clifford [facility] [address] [place] [address] 10/31/2022 Feliciano Dwyer [facility] [address] [place] [address] 11/22/2022 [facility] Bronchitis J40 ; Wheezes R06.2 ; Primary hypertension I10 and Nicotine dependence, cigarettes, uncomplicated F17.210 [facility] [address] [place] [address] 11/29/2022 [facility] Nausea R11.0 [facility] [address] [place] [address] 12/12/2022 Feliciano Dwyer Nausea and vomiting, unspecified vomiting type R11.2 and Depression, unspecified depression type F32.A [facility] [address] [place] [address] 12/18/2022 [facility] [address] [place] [address] 12/31/2022 [facility] [address] [place] [address] 01/01/2023 [facility] [address] [place] [address] 01/10/2023 Feliciano Dwyer Diarrhea, unspecifie d type R19.7 [facility] [address] [place] [address] 01/13/2023 Mirta Carballo Nausea R11.0 [facility] [address] [place] [address] 01/23/2023 Feliciano Dwyer Nausea R11.0 ; Epigastric pain R10.13 and Diarrhea, unspecified type R19.7 [facility] [address] [place] [address] 01/23/2023 Feliciano Dwyer [facility] [address] [place] [address] 01/30/2023 Feliciano Dwyer History of Helicobacter pylori infection Z86.19 [facility] [address] [place] [address] 01/31/2023 [facility] Nausea R11.0 ; Epigastric pain R10.13 ; Anxiety F41.9 and Gastroesophageal reflux disease without esophagitis K21.9 [facility] [address] [place] [address] 02/03/2023 [facility] [address] [place] [address] 02/11/2023 Leilatrisha ElizaldeCampti [facility] [address] [place] [address] 02/25/2023 [facility] [address] [place] [address] 02/25/2023 [facility] [address] [place] [address] 02/25/2023 [facility] [address] [place] [address] 03/04/2023 [facility] [address] [place] [address] 03/05/2023 Steven Bautista [facility] [address] [address] 03/10/2023 [facility] [address] [place] [address] 03/17/2023 Feliciano Dwyer H. pylori infection A04.8 [facility] [address] [place] [address] 03/25/2023 Clifford Deleon [facility] [address] [place] [address] 03/27/[address] [facility] [address] [place] [address] 04/04/2023 [facility] [address] [place] [address] 04/11/2023 [facility] [address] [place] [address] 04/14/2023 [facility] [address] [place] [address] 04/18/2023 [facility] [address] [place] [address] 04/22/2023 Feliciano Dwyer [facility] [address] [place] [address] 04/28/2023 [facility] [address] [place] [address] 04/29/2023 [facility] ASSESSMENTS Encounter Date Diagnosis Assessment Notes Treatment Notes Treatment Clinical Notes 03/17/2023 H. pylori infection (ICD-10 - A04.8) 01/30/2023 History of Helicobacter pylori infection (ICD-10 - Z86.19) 11/22/2022 Bronchitis (ICD-10 - J40) levoquin 11/22/2022 Wheezes (ICD-10 - R06.2) albuteral hfa (has medrol dose pack 01/31/2023 Epigastric pain (ICD-10 - R10.13) toradol 60 mg im 01/31/2023 Nausea (ICD-10 - R11.0) zofran; phenergan prn as directed 05/21/2022 Gastroesophageal reflux disease without esophagitis (ICD-10 [...] - R10.13) 01/23/2023 Nausea (ICD-10 - R11.0) 01/23/2023 Diarrhea, unspecifie d type (ICD-10 - R19.7) 08/05/2022 Palpitations (ICD-10 - R00.2) Holter device [...] box and take this to the nearest [employer] dropbox. We will contact them with results [...] history of coronary arteriosclerosis (ICD-10 - Z82.49) 11/22/2022 Other Questions asked and answered; discharged to home. 01/31/2023 Other Questions asked and answered; discharged to home. 08/05/2022 Other We will obtain an echocardiogram, a 7-day Holter monitor and a coronary calcium score. We will have her return for evaluation of above studies to see if there is any abnormalities that would be causing her symptomology. She is a CCS class 1, NYHA class 1 to 2 PLAN OF TREATMENT Pending Test Test Name Order Date Giardia/Cryptosporidium Screen 03250, 87 329 01/10/2023 Calprotectin Fecal 73578 01/10/2023 C Diff Toxin EIA--73860 01/10/2023 Electrocardiogram (EKG) - 79110 08/06/19 CT Cardiac Scoring Diagnostic-24931 04/2022 Future Test Test Name Order Date H Pylori Breath Test--12883 01/30/2023 H Pylori Breath Test--34927 03/27/2023 Insurance Providers Payer Name Payer Address Payer Phone Subscriber Number Group Number Insured Name Patient Relationship to Insured Coverage Start Date Coverage End Date [employer] [address] [place] [phone] [id number] LeydiZhane foster Self - patient is the insured MEDICATIONS ADMINISTERED Medication Instructions Date of Administration Dosage Notes DEPO-Medrol 10/19/2021 [place] [address] 3-1 pt tolerated well/instructed to wait 20 min dexAMETHasone 10/19/2021 [place] [address]-0 573-1 pt tolerated well/instructed pt to wait 20 min Ketorolac Tromethamine 01/31/[address]23 [place] [address]-88 pt tolerated well/instructed to wait 20 min MEDICAL (GENERAL) HISTORY Medical History History ICD Code breast cancer right heartburn High Blood Pressure COVID VACCINATION X2 COVID SEPTEMBER 2021 LONG COVID Surgical History Surgery Date(Month/Year) cholecystectomy breast reconstruction breast biopsy left 2020 dilation and curettage Hospitalization History Reason Date(Month/Year) RICARDA [facility] 07/2022 see surgical history childbirth
[2023-05-01] MEDS: sodium chloride 0.9% 1,000 ML 999 ML IV (13:25)
[2023-05-01 15:30] LABS: Bilirubin Urine Neg (Negative); Blood Urine Neg (Negative); Glucose Urine UA Norm (Normal); Ketones Urine Negative (Negative); Leukocyte Esterase Urine Negative (Negative); Nitrate Urine Negative (Negative); Protein Urine Neg (Negative); Specific Gravity, Urine 1.015 (1.005-1.030); Urine Appearance Clear (CLEAR); Urine Color Light yellow (Yellow); Urobilinogen Urine Norm (Negative); pH Urine 8 (5-7)
[2023-05-01 15:33] LABS: Add Urine Culture? No; RBC Urine RARE /hpf (0-2); Squamous Epithelial Cell Urine 0-4 /hpf (0-5); WBC Urine 0-4 /hpf (0-5)
== END 2023-05-07 23:59 | disposition home or self-care (01) ==
PROVIDERS: PCP Nurse Practitioner Family; Visit Provider Internal Medicine Medical Oncology
DX: R10.9 Unspecified abdominal pain; Z85.3 Personal history of malignant neoplasm of breast; R30.9 Painful micturition, unspecified; Z53.9 Procedure and treatment not carried out, unspecified reason
CPT/HCPCS: 80053; 81001; 83735; 85025; 96360; 96365; J7030